=== PATIENT | male | born 1960 | race African-American/Black ===

== ENCOUNTER 2017-11-06 11:25 | Emergency (ER) | payer MEDICARE, MEDICAID ==
[2017-11-06 12:57] LABS: ALT (SGPT) 49 U/L (8-55); AST (SGOT) 74 U/L (5-34); Albumin 3.8 g/dL (3.5-5.0); Alkaline Phosphatase 106 U/L (40-150); Anion Gap 17 mmol/L (10-20); BUN (Urea Nitrogen) 17 mg/dL (8.4-25.7); Bilirubin, Total 1.1 mg/dL (0.2-1.2); Calc. Creatinine Clearance 0 mL/min (70-130); Carbon Dioxide 28 mmol/L (22-29); Chloride 95 mmol/L (98-107); Estimated GFR-MDRD 44; Globulin 4.2 g/dL (2.4-3.5); Glucose 149 mg/dL (70-105); Lipase 10 U/L (8-78); Potassium 3.8 mmol/L (3.5-5.1); Sodium 136 mmol/L (136-145)
[2017-11-06 12:58] LABS: Hemoglobin 13.7 g/dL (14.0-18.0); Mean Corpuscular HGB CONC 34.1 g/dL (32.0-36.0); Mean Corpuscular Hemoglobin 30.5 pg (27.0-31.0); Mean Corpuscular Volume 89.3 fl (80.0-94.0); Mean Platelet Volume 7.9 fL (7.4-10.4); Platelet Count 185 thou/uL (130-400); RBC Distribution Width 14.7 % (11.5-14.5); Red Blood Cell (RBC) Count 4.48 mill/uL (4.70-6.10); White Blood Cell (WBC) Count 8.1 thou/uL (4.8-10.8)
[2017-11-06 13:32] LABS: Anisocytosis SLIGHT = 6-15 cells (100X) (0-5/hpf); Band 2 % (5-11); Eosinophils 5 % (0-10); Lymphocytes 4 % (21-51); MDiff Complete? YES; Monocytes 6 % (0-10); Neutrophil 83 % (42-75); PLT Morphology Comment Appears Adequate
--- NOTE | 2017-11-06 13:46 | RAD ---
PORTABLE CHEST ONE VIEW: 11/06/2017 1:03 p.m. HISTORY: Dizziness. Shortness of breath. Weakness. Nausea. FINDINGS: There is elevation of the right hemidiaphragm. The heart is enlarged. No lobar consolidation, pneum othorax, romel pulmonary edema, or pleural effusion is seen. POS: OFF
--- NOTE | 2017-11-07 15:38 | EKG ---
Test Reason : DIFFBREATHING Blood Pressure : / mmHG Vent. Rate : 081 BPM Atrial Rate : 081 BPM P-R Int : 174 ms QRS Dur : 082 ms QT Int : 446 ms P-R-T Axes : 044 020 029 degrees QTc Int : 518 ms Normal sinus rhythm Prolonged QT Abnormal ECG Confirmed by DALTON WOLFE, TOO ([id number]), society editor KAYY PAYTON ([id number]) on 11/07/2017 3:38:37 PM Referred By: Confirmed By:TOO HOFFMAN MD
== END 2017-11-06 13:43 | disposition home or self-care (01) ==
LOC: ERS 11:25
DX: I13.2 Hypertensive heart and chronic kidney disease with heart failure and with stage 5 chronic kidney disease, or end stage renal disease (principal); E11.22 Type 2 diabetes mellitus with diabetic chronic kidney disease; N18.6 End stage renal disease; I50.9 Heart failure, unspecified; K21.9 Gastro-esophageal reflux disease without esophagitis; M10.9 Gout, unspecified; D50.9 Iron deficiency anemia, unspecified; E78.00 Pure hypercholesterolemia, unspecified; Z79.82 Long term (current) use of aspirin; Z79.899 Other long term (current) drug therapy; Z99.2 Dependence on renal dialysis
CPT/HCPCS: 36415; 71045; 80053; 82553; 83690; 84484; 85025; 93005

== ENCOUNTER 2018-08-11 09:55 | Inpatient (IN) | payer MEDICARE, MEDICAID ==
--- NOTE | 2018-08-11 10:50 | RAD ---
RADIOGRAPH CHEST 1 VIEW: Date: 08/11/2018 Time: 9:22 a.m. HISTORY: A 58-year-old male with dyspnea and malaise. COMPARISON: 11/06/2017 FINDINGS: Mild cardiomegaly. Nonspecific mild pulmonary densities, especially at the lower lung zones and rashmi cially in the retrocardiac portion of the left lower lobe. The attenuation of the left lower lobe ap pears to be somewhat greater than on the prior study. No pneumothorax. There is a new finding of pa rtial silhouetting of the left hemidiaphragm and blunting of the left lateral costophrenic angle. IMPRESSION: 1. Nonspecific mildly increased attenuation in the bilateral lower lung zones, which could be mild p ulmonary interstitial edema. 2. Increased attenuation in the left lower lobe, which could be mild atelectasis or early pneumonia. 3. Suspected small left pleural effusion. JUAN [] POS: GIAN
[2018-08-11 11:02] LABS: #Eosinphils 0.4 thou/uL (0.0-0.7); #Lymphocytes 0.8 thou/uL (1.20-3.40); #Monocytes 0.3 thou/uL (0.11-0.59); #Neutrophils 2.4 thou/uL (1.40-6.50); %Eosinophils 11.1 % (0.0-10.0); %Monocytes 7.7 % (0.0-10.0); %Neutrophils 59.1 % (42.0-75.0); Hemoglobin 10.2 g/dL (14.0-18.0); Mean Corpuscular HGB CONC 32.5 g/dL (32.0-36.0); Mean Corpuscular Volume 86.1 fL (78.0-98.0); Platelet Count 242 thou/uL (130-400); RBC Distribution Width 17.1 % (11.5-14.5); Red Blood Cell (RBC) Count 3.66 mill/uL (4.70-6.10)
[2018-08-11 11:28] LABS: ALT (SGPT) 7 U/L (8-55); AST (SGOT) 16 U/L (5-34); Albumin 3.8 g/dL (3.5-5.0); Alkaline Phosphatase 64 U/L (40-150); Anion Gap 12 mmol/L (10-20); BUN (Urea Nitrogen) 7 mg/dL (8.4-25.7); Bilirubin, Total 1.6 mg/dL (0.2-1.2); CK (CPK) 123 U/L (30-200); Calc. Creatinine Clearance 0 mL/min (70-130); Calcium 9.1 mg/dL (7.8-10.44); Carbon Dioxide 33 mmol/L (22-29); Chloride 96 mmol/L (98-107); Estimated GFR-MDRD 37; Globulin 3.9 g/dL (2.4-3.5); Glucose 93 mg/dL (70-105); Protein, Total 7.7 g/dL (6.0-8.3); Sodium 138 mmol/L (136-145)
[2018-08-11 11:30] LABS: Troponin I 0.017 ng/mL (< 0.028)
[2018-08-11 11:33] LABS: Potassium 2.7 mmol/L (3.5-5.1)
[2018-08-11] MEDS ORDERED: Potassium Chloride 20 MEQ TAB ONE (12:35)
[2018-08-11] MEDS ORDERED: Senokot S 8.6-50 MG TAB PO PRN (13:58)
[2018-08-11] MEDS ORDERED: Ondansetron HCl/PF 4 MG/2 ML Vial IVP PRN (13:58)
[2018-08-11] MEDS ORDERED: Acetaminophen 325 MG TAB PO PRN (13:58)
[2018-08-11] MEDS ORDERED: Bisacodyl 10 MG SUPP PR PRN (13:58)
[2018-08-11] MEDS ORDERED: HYDROcodone/Acetaminophen 5/325 mg Tablet PO PRN (13:58)
[2018-08-11] MEDS ORDERED: Bisacodyl 5 MG TAB PO PRN ×2 (13:58→13:59)
[2018-08-11] MEDS ORDERED: Calcium Carbonate 500 MG ChewTAB PO PRN (13:58)
[2018-08-11] MEDS ORDERED: Nitroglycerin 0.4 MG TAB (25 Tab Bottle) SL PRN (13:59)
[2018-08-11] MEDS ORDERED: Diabetic Tussin 200 MG/10 ML UDCUP PO PRN (13:59)
[2018-08-11] MEDS ORDERED: hydrALAZINE 20 MG/ML VIAL SLOW IVP PRN (13:59)
[2018-08-11] MEDS ORDERED: traMADol HCl 50 MG TAB PO PRN (13:59)
[2018-08-11] MEDS ORDERED: Loratadine 10 MG TAB PO PRN (13:59)
[2018-08-11] MEDS ORDERED: Benzonatate 100 MG CAP PO PRN (13:59)
[2018-08-11] MEDS ORDERED: Senokot 8.6 MG TAB PO PRN (13:59)
[2018-08-11] MEDS ORDERED: Vancomycin HCl 1.25 GM in Sodium Chloride 0.9% 250 ML 250 ML IVPB SCH (14:30)
[2018-08-11] MEDS ORDERED: Vancomycin HCl 500 MG in Sodium Chloride 0.9% 100 ML IVPB SCH (14:30)
[2018-08-11] MEDS ORDERED: Vancomycin HCl 1 GM in Premix Bag 1 BAG IVPB SCH ×2 (14:30→21:00)
[2018-08-11] MEDS ORDERED: HOLD VANCOMYCIN FOR LEVEL >20 FS SCH (14:30)
[2018-08-11] MEDS ORDERED: Vancomycin HCl 750 MG in Sodium Chloride 0.9% 250 ML 250 ML IVPB SCH (14:30)
[2018-08-11 14:50] LABS: Troponin I 0.016 ng/mL (< 0.028)
[2018-08-11] MEDS ORDERED: Potassium Chloride 40 MEQ in Sodium Chloride 0.9% 250 ML 250 ML IVPB SCH (15:00)
[2018-08-11] MEDS ORDERED: Potassium Chloride 20 MEQ TAB PO SCH (15:45)
--- NOTE | 2018-08-11 17:19 | HP ---
DATE OF ADMISSION: 08/11/2018 CHIEF COMPLAINT: Generalized weakness and shortness of breath. PRIMARY CARE PHYSICIAN: Morenita. PRIMARY SIGN MAKER: Dr. Sims. HISTORY OF PRESENTING ILLNESS: Mr. Quinn is a very pleasant 58-year-old male with known history of en d-stage renal disease on hemodialysis as well as history of chronic diastolic congestive heart failur e, chronic hepatitis C, iron deficiency anemia, hypertension, and diabetes mellitus who presented to the ER from dialysis center with the above-mentioned complaint. History is mainly obtained by the nathan anaya himself and electronic medical records have been reviewed. [facility]. According to Mr. Quinn, he has been feeling poorly for the last 3 weeks with increased fatigue and pro gressively worsening shortness of breath. He has been having some subjective fevers with chills. He has a dry cough. Denies any chest pain, orthopnea or PND. Denies any swelling. Denies any nausea, vomiting, diarrhea. He has been compliant with his dialysis and medications. He denies any sick co ntacts. He is normally able to ambulate freely in the house and is independent with his ADLs and IAD Ls, but lately has been having a hard time walking around the house because of excessive weakness. Blair chand did receive his influenza vaccination earlier this month. In the hemodialysis center today, he was found to be hypoxic with oxygen saturation in low 80s, so he was sent to the emergency room. His oxygen saturation in the ER was 94% on room air. A chest x-ray done in the ER was suggestive of possible bibasilar atelectasis versus pneumonia and some fluid over load. His BNP was elevated to 2642. Cardiac enzymes were negative. He was started on empiric IV an tibiotics and is now being admitted for further evaluation and care of acute hypoxic respiratory fail ure with possible pneumonia and fluid overload. His potassium was also found to be low at 2.7. PAST MEDICAL HISTORY: 1. End-stage renal disease on hemodialysis started last year in 2017. 2. Hypertension. 3. Dyslipidemia. 4. Diabetes mellitus type 2. 5. Chronic diastolic congestive heart failure. 6. Chronic hepatitis C. 7. Gout. PAST SURGICAL HISTORY: Angioplasty and cataracts. PSYCHIATRIC HISTORY: None are reviewed with the patient. SOCIAL HISTORY: He lives alone and is independent. No history of drug, tobacco or alcohol abuse. Q uit smoking 30 years ago. FAMILY HISTORY: Hypertension and coronary artery disease. ALLERGIES: No known medication allergies. [facility] MEDICATIONS: [facility], aspirin 81 mg daily, allopurinol 300 mg daily, nifedipi ne 90 mg daily, Imdur 60 mg p.o. b.i.d., Lantus 8 units in the morning, ferrous sulfate 325 mg daily, Nexium 40 mg daily, Coreg 25 t.i.d., Lipitor 10 at bedtime, hydralazine 25 t.i.d., MiraLax daily, an d omega 3 fish oil daily. REVIEW OF SYSTEMS: A 12-point review of systems is done, it is negative except for those mentioned i n the history and physical. LABORATORY DATA AND IMAGING DATA: CBC shows WBCs at 4.0 without any left shift or bandemia, hemoglob in 10.2, platelet count of 242. Serum chemistry shows potassium of 2.7, chloride low at 96, bicarbon ate high at 33, BUN 7, creatinine 2.19. Troponin 0.017 with normal CK-MB, BNP 2642. Chest x-ray by my review showed bibasilar opacities consistent with possible development of early pneumonia as well as mild pulmonary vascular congestion. PHYSICAL EXAMINATION: VITAL SIGNS: Most recent vital signs; temperature 97.3, pulse of 63, respirations 20, saturating 92% on 2 liters nasal cannula, blood pressure 183/65. GENERAL: No acute distress. He does appear somewhat sick and weak. HEENT: Mucous membrane is moist and pink. No oropharyngeal exudate or erythema. Head is normocepha lic, atraumatic. Pupils equal, reactive to light and accommodation. Extraocular movement intact. NECK: Supple without any lymphadenopathy, JVD or bruit. CHEST: Clear to auscultation except for some few bibasilar crackles. Rate and rhythm is regular wit hout any murmur, rubs or gallops. ABDOMEN: Soft, nontender, nondistended with positive bowel sounds. EXTREMITIES: Free of any cyanosis, clubbing, or edema. NEUROLOGIC: Examination is nonfocal. SKIN: Free of any rashes or bruises. Feels warm and dry to touch. PSYCHIATRIC: Normal affect. IMPRESSION AND PLAN: 1. Acute hypoxic respiratory failure. Appears multifactorial at this time. Pneumonia cannot be rul ed out as well as acute exacerbation of chronic diastolic heart failure even though the patient was c ompliant with his hemodialysis. We will start him on empiric antibiotics. Unfortunately, he has los t IV access and despite multiple attempts, it was unsuccessful to be established. It will be tried a gain tomorrow. He will be started and continued on empiric oral antibiotics in the meanwhile for lopez al adjusted dose. Blood cultures have been sent from the emergency room, and we will follow the resu lts. Cardiac enzyme is unremarkable, so suspicion of ACS is very low at this time. Hemodialysis wit h fluid removal will be done as tolerated. We will check BMP again in the morning. Repeat echocardi ogram will be ordered as well. His last echo was done in 11/2015, which showed a large pleural effus ion, normal left ventricular systolic function, moderate tricuspid and mitral regurgitation. He will be treated with symptomatic and supportive care with supplemental oxygen as well. 2. Hypokalemia, it will be replaced and rechecked. Dialysis supplementation as per treatment supervisor aft erwards 3. End-stage renal disease on hemodialysis. We will consult Nephrology for maintenance hemodialysis in the hospital. 4. History of hypertension. We will restart his Procardia, carvedilol, hydralazine and Imdur and mo nitor symptoms. P.r.n. antihypertensives. 5. Diabetes mellitus type 2. Restart his Lantus and add insulin sliding scale with frequent Accu-Ch eks. 6. Generalized weakness. We will have OT/PT to evaluate him. 7. Dyslipidemia. We will restart his Lipitor. 8. History of chronic hepatitis C. 9. Chronic constipation. Restart MiraLax. 10. Deep venous thrombosis and gastrointestinal prophylaxis. 11. P.r.n. medications. DISPOSITION: Mr. Quinn is currently being admitted to the hospital with acute hypoxic respiratory jaspreet lure likely secondary to pneumonia and fluid overload from acute on chronic diastolic congestive hear t failure. Estimated length of stay at this time is at least 2-3 midnights. Further management will depend upon his clinical course.
[2018-08-11 17:47] LABS: Troponin I 0.019 ng/mL (< 0.028)
[2018-08-11] MEDS ORDERED: Prevnar 13-Val Conj/PF 0.5 ML SYRINGE IM ONE (21:00)
[2018-08-11] MEDS ORDERED: Cefepime 1 GM in Sodium Chloride 0.9% 100 ML IVPB SCH (21:00)
[2018-08-11] MEDS: Heparin 5,000 UNITS/ML VIAL SC SCH (21:07)
[2018-08-11] MEDS: Doxycycline 100 MG CAP PO SCH (21:07)
[2018-08-11] MEDS: Fish Oil 1,000 MG CAP PO SCH (21:07)
[2018-08-11] MEDS: Atorvastatin Calcium 10 MG TAB PO SCH (21:07)
[2018-08-11] MEDS: Carvedilol 25 MG TAB PO SCH (21:07)
[2018-08-11] MEDS: hydrALAZINE 25 MG TAB PO SCH (21:07)
--- NOTE | 2018-08-12 00:54 | CON ---
DATE OF CONSULTATION: 08/11/2018 HISTORY OF PRESENT ILLNESS: Mr. Quinn is a 58-year-old black male with ESRD from diabetic nephropathy , on maintenance hemodialysis, and admitted for generalized weakness. The patient was undergoing ozzie lysis, complaining of generalized weakness and mild shortness of breath. A CBC was checked and his h emoglobin was noted to be acceptable. He was seen today for further management. The patient was com plaining of some chills at home. For that reason, he was admitted for possible sepsis. Chest x-ray was suggestive of possible pneumonia versus fluid overload. His BNP was elevated 2642. He had also a low potassium, but this is a post-dialysis number. REVIEW OF SYSTEMS: Positive for generalized malaise. Positive for chills, but no fever, no diarrhea , no constipation, no dysuria, no urinary frequency, no syncopal episode, no productive cough. Appet ite and energy level is decreased. MEDICATIONS: The patient is currently on Philpot 5/325 q.6 hours p.r.n., Zyloprim 300 mg daily, aspiri n 81 mg tab daily, Lipitor 10 mg at bedtime, Tessalon 100 mg q.4 hours, Tums 1000 mg q.4 hours, Coreg 25 mg p.o. t.i.d., clonidine p.r.n., doxycycline 100 mg p.o. b.i.d., ferrous sulfate 325 mg q.a.m., fish oil 1000 mg p.o. b.i.d., heparin 5000 units subcutaneously b.i.d., insulin glargine 8 units subc u q.a.m., Imdur 60 mg p.o. b.i.d., Levaquin 250 mg daily, nifedipine 90 mg XL tab daily, Nitrostat p. r.n., status post vancomycin, Protonix 40 mg tab once a day. PAST MEDICAL HISTORY: 1. Patient has history of ESRD from diabetic nephropathy. Had been currently on maintenance hemodia lysis. 2. He has type 2 diabetes mellitus. 3. Status post CHF. 4. Coronary artery disease. 5. Chronic anemia. 6. Hyperlipidemia. 7. Gout. 8. Hypertension. 9. GERD. 10. Depression. PAST SURGICAL HISTORY: 1. Status post AV fistula placement. 2. Status post cuffed hemodialysis catheter placement. 3. Status post cardiac catheterization with coronary stent placement. 4. Status post colonoscopy. 5. Status post eye surgery. SOCIAL HISTORY: The patient lives in [place]. He is a retired worker for a meat shop. He is original ly from [employer]. He has 6 children. Education: GED. Smoked for 20 years, one pack a day. Currently, no history of smoking. Status post multiple blood transfusions. No alcohol use. ALLERGIES: None. TRAUMA: None. IMMUNIZATIONS: Up to date. HOSPITALIZATIONS: Please see past medical history. FAMILY HISTORY: No family history of ESRD. PHYSICAL EXAMINATION: VITAL SIGNS: Blood pressure is noted at 141/62, heart rate 68, respiratory rate 20, temperature 97.7 , pulse ox 92%. GENERAL: Awake, alert, comfortable, lethargic, not in overt distress. SKIN: Adequate turgor. HEENT: He has pink, slightly pale conjunctivae, anicteric sclerae. NECK: No neck mass, no carotid bruits, no JVD. CHEST: No deformities. LUNGS: Decreased breath sounds. HEART: Normal sinus rhythm. No murmur, no gallops, no rubs. ABDOMEN: Globular, soft, nontender, no masses. EXTREMITIES: No edema, no deformities. NEUROLOGIC: Moving all extremities. No tremors, no asterixis, no ataxia. LABORATORY AND DIAGNOSTIC DATA: On 08/11/2018, white count 4, hemoglobin 10.2. Sodium 138, potassiu m 2.7, chloride 96, carbon dioxide 33, BUN 7, creatinine 2.19, glucose 93, AST 16, ALT 7. CK 173. B VACUUM KETTLE COOK is 2642, albumin 3.8, troponin I 0.019. Chest x-ray of 08/11/2018, shows a small left pleural eff usion; atelectasis, left lower lobe, increased interstitial lung markings. ASSESSMENT AND PLAN: 1. Generalized weakness/chills. The patient being ruled out for possible infection. Empiric antibi otics have been started with this patient, having doxycycline, Levaquin, and IV vancomycin. 2. End-stage renal disease, stable. We will continue current Thursday, Thursday, Thursday hemodialysis . Please note he received his dialysis today. Fluid removal was tolerated. If needed, we can do an extra dialysis tomorrow for fluid removal with this patient. Overall, Kt/V suggests he is adequatel y dialyzed with the current dialysis regimen. 3. We will check base met and CBC in a.m.
[2018-08-12 01:55] LABS: Bilirubin Moderate (Negative); Blood, Urine Trace (Negative); Clarity CLEAR (Clear); Glucose, Urine (Dipstick) Negative (Negative); Protein, Urine (Dipstick) 300 mg/dL (Neg-Trace); Specific Gravity, Urine 1.017 (1.002-1.036); pH, Urine 7.5 (5.0-9.0)
[2018-08-12 01:59] LABS: Bacteria/HPF None Seen HPF (None Seen); Hyaline Casts/LPF 7-10 HYALINE CAST LPF (0-3 Hyaline); Pathc Cast-AUWi Flag 1.16 (0-2.49); RBC/HPF GREATER THAN 50-TNTC HPF (0-3); Squamous Epithelial 0-3 HPF (0-3)
[2018-08-12 02:10] LABS: Leukocyte Negative (Negative); Nitrite Negative (Negative)
[2018-08-12 05:16] LABS: #Eosinphils 0.6 thou/uL (0.0-0.7); #Lymphocytes 0.8 thou/uL (1.20-3.40); #Monocytes 0.2 thou/uL (0.11-0.59); #Neutrophils 2.2 thou/uL (1.40-6.50); %Basophils 0.4 % (0.0-1.0); %Lymphocytes 20.9 % (21.0-51.0); %Monocytes 5.5 % (0.0-10.0); %Neutrophils 57.1 % (42.0-75.0); Hemoglobin 10.1 g/dL (14.0-18.0); Mean Corpuscular HGB CONC 33.2 g/dL (32.0-36.0); Mean Corpuscular Hemoglobin 28.8 pg (27.0-31.0); Mean Corpuscular Volume 86.6 fL (78.0-98.0); Mean Platelet Volume 8.4 fL (7.4-10.4); Platelet Count 207 thou/uL (130-400); Red Blood Cell (RBC) Count 3.51 mill/uL (4.70-6.10); White Blood Cell (WBC) Count 3.8 thou/uL (4.8-10.8)
[2018-08-12 05:37] LABS: Anion Gap 14 mmol/L (10-20); BUN (Urea Nitrogen) 14 mg/dL (8.4-25.7); Calc. Creatinine Clearance 32 mL/min (70-130); Calcium 8.9 mg/dL (7.8-10.44); Carbon Dioxide 25 mmol/L (22-29); Chloride 98 mmol/L (98-107); Estimated GFR-MDRD 24; Glucose 102 mg/dL (70-105); Potassium 4.1 mmol/L (3.5-5.1); Sodium 133 mmol/L (136-145)
[2018-08-12] MEDS: NIFEdipine XL 90 MG TAB PO SCH (08:11)
[2018-08-12] MEDS: Polyethylene Glycol 3350 17 GM Packet PO SCH (08:11)
[2018-08-12] MEDS: Doxycycline 100 MG CAP PO SCH ×2 (08:11→21:01)
[2018-08-12] MEDS: Insulin Glargine 8 UNITS in Pre-Filled Syringe 1 EACH SC SCH (08:11)
[2018-08-12] MEDS: Famotidine 20 MG TAB PO SCH (08:12)
[2018-08-12] MEDS: Carvedilol 25 MG TAB PO SCH ×3 (08:12→21:01)
[2018-08-12] MEDS: hydrALAZINE 25 MG TAB PO SCH ×3 (08:12→21:01)
[2018-08-12] MEDS: Ferrous Sulfate 325 MG TAB PO SCH (08:12)
[2018-08-12] MEDS: Allopurinol 300 MG TAB PO SCH (08:12)
[2018-08-12] MEDS: Fish Oil 1,000 MG CAP PO SCH ×2 (08:13→21:02)
[2018-08-12] MEDS: Aspirin 81 mg Enteric Coated Tablet PO SCH (08:13)
[2018-08-12] MEDS: Heparin 5,000 UNITS/ML VIAL SC SCH ×2 (08:14→21:01)
[2018-08-12] MEDS ORDERED: Cosyntropin 250 MCG VIAL SLOW IVP SCH (09:00)
[2018-08-12] MEDS ORDERED: INSULIN GLARGINE HUM REC ANLOG 8 UNIT SQ SCH (09:00)
--- NOTE | 2018-08-12 09:34 | PRG ---
DATE OF SERVICE: 08/12/2018 SUBJECTIVE: Mr. uQinn is a 58-year-old black male who was admitted for generalized weakness. Accordi ng to the patient, he has been feeling tired for the last 2-3 weeks. He has essentially no energy. In addition, his appetite is much decreased. He was admitted for possible sepsis. He has been empir ically treated also with IV antibiotics. A cardiac echo has also been ordered. Denies any overt dayana rtness of breath. Chest x-ray did suggest some fluid as well as an elevated BNP. PHYSICAL EXAMINATION: VITAL SIGNS: Blood pressure is 185/83, heart rate 75, respiratory rate 20, temperature 98, pulse ox 91%. GENERAL: Noted to be awake, alert, but somewhat lethargic, not in overt distress. SKIN: Adequate turgor. HEENT: He has slightly pale conjunctivae, anicteric sclerae. NECK: No neck mass, no carotid bruits, no JVD. CHEST: No deformities. LUNGS: Clear. Decreased breath sounds. HEART: Normal sinus rhythm. No murmur, no gallops, no rubs. ABDOMEN: Globular, soft, nontender, no masses. EXTREMITIES: No edema, no deformities. MEDICATIONS: 08/12/2018 - Reviewed. LABORATORY: 08/12/2018 - Sodium 133, potassium 4.1, chloride 98, carbon dioxide 25, BUN 14, creatin ine 3.25, glucose 102, calcium 8.9. White count 3.8, hemoglobin 10.1. ASSESSMENT AND PLAN: 1. Generalized weakness/elevated BNP - cardiac echo ordered. We will recheck what the ejection frac tion is. The generalized weakness may be from underlying decreased EF 2. End-stage renal disease, stable. We will continue current hemodialysis regimen Thursday, Thursday , Thursday. No indication for any emergent dialysis today. 3. Borderline anemia. We will continue to observe. Please note we will order a Cortrosyn stimulati on test for this patient. Recheck base met and CBC in the a.m.
[2018-08-12] MEDS ORDERED: Cefepime 0.5 GM, Admixture Fee 1 EACH in Sodium Chloride 0.9% 100 ML IVPB SCH (12:00)
--- NOTE | 2018-08-12 17:57 | PDOC.PN ---
- Subjective Encounter Start Date: 08/12/18 Encounter Start Time: 09:00 Pt seen for followup re; acute hypoxic respiratory failure. Feels slightly better, but still weak. - Objective Vital Signs & Weight: Vital Signs (12 hours) Temp Pulse Resp BP Pulse Ox 08/12/18 17:00 98.0 F 74 20 144/66 H 97 08/12/18 15:33 69 08/12/18 11:43 98.3 F 69 20 186/71 H 94 L 08/12/18 08:12 66 08/12/18 08:11 66 08/12/18 08:00 98.0 F 75 20 185/83 H 94 L Weight Admit Weight 204 lb 9 oz Weight 204 lb 9 oz I&O: 08/11/18 08/12/18 08/13/18 06:59 06:59 06:59 Intake Total 840 240 Output Total 50 Balance 790 240 Result Diagrams: 08/12/18 04:12 08/12/18 04:12 Additional Labs: Accuchecks 08/12/18 08/12/18 08/12/18 17:03 11:40 05:25 POC Glucose 82 92 105 08/11/18 21:03 POC Glucose 100 Phys Exam - Physical Examination Obese HEENT: moist MMs, sclera anicteric, oral pharynx no lesions, 2+ tonsils Neck: no nodes, no JVD, supple, full ROM Respiratory: no wheezing, no rales, no rhonchi, clear to auscultation bilateral Cardiovascular: RRR, no rub S1, s2 Gastrointestinal: soft, non-tender, no distention, positive bowel sounds Neurological: moves all 4 limbs Psychiatric: normal affect Dx/Plan (1) Acute respiratory failure with hypoxia Code(s): J96.01 - ACUTE RESPIRATORY FAILURE WITH HYPOXIA Status: Acute Comment: Slightly improved, continues to be on supplemental oxygen. Suspected sepsis, continue antibiotics as below and follow cultures. (2) ESRD (end stage renal disease) on dialysis Code(s): N18.6 - END STAGE RENAL DISEASE; Z99.2 - DEPENDENCE ON RENAL DIALYSIS Status: Chronic Comment: dialysis per nephrology service (3) Gout Code(s): M10.9 - GOUT, UNSPECIFIED Status: Chronic Qualifiers: Gout site: unspecified site Gout etiology: unspecified cause Chronicity: chronic Presence of tophus: without tophus Qualified Code(s): M1A.9XX0 - Chronic gout, unspecified, without tophus (tophi) Comment: stable (4) Hypertension Code(s): I10 - ESSENTIAL (PRIMARY) HYPERTENSION Status: Chronic Comment: start PRN IV hydralazine for blood pressure spikes (5) Chronic hepatitis C Code(s): B18.2 - CHRONIC VIRAL HEPATITIS C Status: Chronic Comment: stable - Plan * . Review of Systems - Review of Systems Constitutional: chills, weakness. negative: fever, sweats, malaise Respiratory: Cough, Dry, SOB with Excertion. negative: Shortness of Breath, Hemoptysis, Pleuritic Pain, Sputum, Wheezing Cardiovascular: negative: chest pain, palpitations, orthopnea, paroxysmal nocturnal dyspnea, edema, light headedness Gastrointestinal: negative: Nausea, Vomiting, Abdominal Pain, Diarrhea, Constipation, Melena, Hematochezia Genitourinary: negative: Dysuria, Frequency, Incontinence, Hematuria, Retention Skin: negative: Rash, Lesions, Tobias, Bruising - Medications/Allergies Allergies/Adverse Reactions: Allergies Allergy/AdvReac Type Severity Reaction Status Date / Time No Known Drug Allergies Allergy Verified 09/03/15 08:35 Medications: Current Medications Acetaminophen (Tylenol) 650 mg PO Q4H PRN PRN Reason: Headache/Fever/Mild Pain (1-3) Hydrocodone Bitart/Acetaminophen (Lyerly 5/325) 1 tab PO Q4H PRN PRN Reason: Moderate Pain (4-6) Last Admin: 08/11/18 15:23 Dose: 1 tab Allopurinol (Zyloprim) 300 mg PO DAILY [facility] Last Admin: 08/12/18 08:12 Dose: 300 mg Aspirin (Ecotrin) 81 mg PO DAILY [facility] Last Admin: 08/12/18 08:13 Dose: 81 mg Atorvastatin Calcium (Lipitor) 10 mg PO HS [facility] Last Admin: 08/11/18 21:07 Dose: 10 mg Benzonatate (Tessalon) 100 mg PO Q4H PRN PRN Reason: Cough Bisacodyl (Dulcolax) 10 mg PO DAILYPRN PRN PRN Reason: Constipation Bisacodyl (Dulcolax) 10 mg [place] DAILYPRN PRN PRN Reason: Constipation Calcium Carbonate (Tums) 1,000 mg PO Q4H PRN PRN Reason: Heartburn or Indigestion Carvedilol (Coreg) 25 mg PO TID [facility] Last Admin: 08/12/18 15:33 Dose: 25 mg Clonidine (Catapres) 0.1 mg PO Q4H PRN PRN Reason: Systolic BP > 160 Cosyntropin (Cortrosyn) 250 mcg SLOW IVP [facility] Last Admin: 08/12/18 15:32 Dose: 250 mcg Doxycycline Hyclate (Vibramycin) 100 mg PO BID [facility] Last Admin: 08/12/18 08:11 Dose: 100 mg Famotidine (Pepcid) 20 mg PO DAILY [facility] Last Admin: 08/12/18 08:12 Dose: 20 mg [facility]ous [facility]) [facility] Last Admin: 08/12/18 08:12 Dose: 325 mg Fish Oil (Fish Oil) 1,000 mg PO BID [facility] Last Admin: 08/12/18 08:13 Dose: 1,000 mg Guaifenesin (Robitussin Sf) 200 mg PO Q4H PRN PRN Reason: Cough Heparin Sodium (Porcine) (Heparin) 5,000 units SC BID [facility] Last Admin: 08/12/18 08:14 Dose: 5,000 units Hydralazine HCl (Apresoline) 10 mg SLOW IVP Q4H PRN PRN Reason: Systolic BP > 170 Hydralazine HCl (Apresoline) 25 mg PO TID [facility] Last Admin: 08/12/18 15:33 Dose: 25 mg Vancomycin HCl 1.25 gm/ Sodium (Chloride) 250 mls @ 166.667 mls/hr IVPB [facility] Vancomycin HCl 1 gm/ Device 200 mls @ 200 mls/hr IVPB [facility] Vancomycin HCl 750 mg/ Sodium (Chloride) 250 mls @ 250 mls/hr IVPB [facility] Insulin Glargine 8 units/ (Miscellaneous Medication) 0.08 mls @ 0 mls/hr SC QAM [facility] Last Admin: 08/12/18 08:11 Dose: 0.08 mls Isosorbide Mononitrate (Imdur) 60 mg PO BID [facility] Last Admin: 08/12/18 08:13 Dose: 60 mg Levofloxacin (Levaquin) 250 mg PO 0600 [facility] Last Admin: 08/12/18 05:37 Dose: 250 mg Loratadine (Claritin) 10 mg PO DAILYPRN PRN PRN Reason: Sinus Symptoms Miscellaneous Medication (Pharmacy To Dose) 1 each IVPB PRN PRN PRN Reason: Pharmacy to dose Nifedipine (Procardia Xl) 90 mg PO DAILY [facility] Last Admin: 08/12/18 08:11 Dose: 90 mg Nitroglycerin (Nitrostat) 0.4 mg SL Q5MIN PRN PRN Reason: Chest Pain Hold Vancomycin For (Level >20) 0 each FS .AT DIALYSIS [facility] Ondansetron HCl (Zofran) 4 mg IVP Q6H PRN PRN Reason: Nausea/Vomiting Pantoprazole Sodium (Protonix) 40 mg PO DAILY [facility] Last Admin: 08/12/18 08:12 Dose: 40 mg Polyethylene Glycol (Miralax) 17 gm PO DAILY [facility] Last Admin: 08/12/18 08:11 Dose: 17 gm Senna (Senokot) 2 tab PO HSPRN PRN PRN Reason: Constipation Senna/Docusate Sodium (Senokot S) 2 tab PO BID PRN PRN Reason: Constipation Sodium Chloride (Flush - Normal Saline) 10 ml IVF PRN PRN PRN Reason: Saline Flush Tramadol HCl (Ultram) 50 mg PO Q4H PRN PRN Reason: Moderate Pain (4-6)
[2018-08-12] MEDS ORDERED: hydrALAZINE 20 MG/ML VIAL SLOW IVP PRN (18:01)
[2018-08-12] MEDS: Atorvastatin Calcium 10 MG TAB PO SCH (21:01)
--- NOTE | 2018-08-13 10:52 | PRG ---
DATE OF SERVICE: 08/13/2018 SERVICE: Renal Medicine. SUBJECTIVE: Mr. Quinn is currently undergoing hemodialysis. I am at the bedside supervising his dial ysis. He was admitted for generalized malaise. Cardiac echo has been ordered and still currently pe nding. He feels a little better today. Attempting to remove fluid removal as tolerated. No other c omplaints, no chest pain or shortness of breath. PHYSICAL EXAMINATION: VITAL SIGNS: Blood pressure is 168/62. Attempting to remove 4.6 liters. GENERAL: Awake, alert, supine, comfortable. SKIN: Adequate turgor. HEENT: Pinkish conjunctivae, anicteric sclerae. NECK: No neck mass, no carotid bruits, no JVD. CHEST: No deformities. LUNGS: Decreased breath sounds. HEART: Normal sinus rhythm. No murmur, no gallops, no rubs. ABDOMEN: Globular, soft, nontender, no masses. EXTREMITIES: No edema. LABORATORY DATA: Of 08/13/2018, pending. MEDICATIONS: Of 08/13/2018 was reviewed. ASSESSMENT AND PLAN: 1. Generalized malaise - this could be from a possible decreased ejection fraction causing generaliz ed weakness. He was also found to have some congestive heart failure on x-ray and has elevated BNP. We are maxing out fluid removal. 2. Congestive heart failure, maxing out fluid removal with dialysis. 3. End-stage renal disease, stable. Continue current Thursday, Thursday, Thursday dialysis. Again, adan ximizing fluid removal. Overall, agree with current management.
[2018-08-13] MEDS: Ferrous Sulfate 325 MG TAB PO SCH (11:52)
[2018-08-13] MEDS: Allopurinol 300 MG TAB PO SCH (11:52)
[2018-08-13] MEDS: hydrALAZINE 25 MG TAB PO SCH ×3 (11:53→20:09)
[2018-08-13] MEDS: Fish Oil 1,000 MG CAP PO SCH ×2 (11:53→20:08)
[2018-08-13] MEDS: Insulin Glargine 8 UNITS in Pre-Filled Syringe 1 EACH SC SCH (11:53)
[2018-08-13] MEDS: Heparin 5,000 UNITS/ML VIAL SC SCH ×2 (11:53→20:08)
[2018-08-13] MEDS: Famotidine 20 MG TAB PO SCH (11:53)
[2018-08-13] MEDS: Carvedilol 25 MG TAB PO SCH ×3 (11:53→20:08)
[2018-08-13] MEDS: Aspirin 81 mg Enteric Coated Tablet PO SCH (11:53)
[2018-08-13] MEDS: Doxycycline 100 MG CAP PO SCH ×2 (11:53→20:08)
[2018-08-13] MEDS: Polyethylene Glycol 3350 17 GM Packet PO SCH (11:54)
[2018-08-13] MEDS: NIFEdipine XL 90 MG TAB PO SCH (11:54)
[2018-08-13] MEDS: cloNIDine 0.1 MG TAB PO PRN ×2 (12:32→16:31)
--- NOTE | 2018-08-13 14:58 | PDOC.PN ---
- Subjective Encounter Start Date: 08/13/18 Encounter Start Time: 10:20 Pt seen for followup re: acute hypoxic respiratory failure. Denies chest pain. c/o generalized weakness. - Objective MAR Reviewed: Yes Vital Signs & Weight: Vital Signs (12 hours) Pulse BP Pulse Ox 08/13/18 14:56 190/69 H 08/13/18 12:32 190/69 H 08/13/18 11:54 69 144/67 H 08/13/18 11:53 69 144/67 H 08/13/18 08:00 94 L Weight Admit Weight 204 lb 9 oz Weight 204 lb 9 oz I&O: 08/12/18 08/13/18 08/14/18 06:59 06:59 06:59 Intake Total 840 240 Output Total 50 Balance 790 240 Result Diagrams: 08/12/18 04:12 08/12/18 04:12 Additional Labs: Accuchecks 08/12/18 08/12/18 08/12/18 21:05 17:03 11:40 POC Glucose 77 82 92 Labs reviewed by me Phys Exam - Physical Examination Obesity HEENT: moist MMs, sclera anicteric, oral pharynx no lesions, 2+ tonsils Neck: no nodes, no JVD, supple, full ROM Respiratory: no wheezing, no rales, no rhonchi, clear to auscultation bilateral Cardiovascular: RRR, no rub S1, S2 Gastrointestinal: soft, non-tender, no distention, positive bowel sounds Neurological: moves all 4 limbs Psychiatric: normal affect, A&O x 3 Dx/Plan (1) Acute respiratory failure with hypoxia Code(s): J96.01 - ACUTE RESPIRATORY FAILURE WITH HYPOXIA Status: Acute Comment: Improving, but pt is still on supplemental oxygen. Continue antibiotics as below and follow cultures for suspected sepsis. (2) ESRD (end stage renal disease) on dialysis Code(s): N18.6 - END STAGE RENAL DISEASE; Z99.2 - DEPENDENCE ON RENAL DIALYSIS Status: Chronic Comment: nephrology service following (3) Gout Code(s): M10.9 - GOUT, UNSPECIFIED Status: Chronic Qualifiers: Gout site: unspecified site Gout etiology: unspecified cause Chronicity: chronic Presence of tophus: without tophus Qualified Code(s): M1A.9XX0 - Chronic gout, unspecified, without tophus (tophi) Comment: stable (4) Hypertension Code(s): I10 - ESSENTIAL (PRIMARY) HYPERTENSION Status: Chronic Comment: on PRN IV hydralazine for blood pressure spikes (5) Chronic hepatitis C Code(s): B18.2 - CHRONIC VIRAL HEPATITIS C Status: Chronic Comment: stable - Plan continue antibiotics, PT/OT * . Review of Systems - Review of Systems Constitutional: weakness. negative: fever, chills, sweats, malaise Respiratory: negative: Cough, Shortness of Breath, SOB with Excertion, Pleuritic Pain, Wheezing Cardiovascular: negative: chest pain, palpitations, orthopnea, paroxysmal nocturnal dyspnea, edema, light headedness Gastrointestinal: negative: Nausea, Vomiting, Abdominal Pain, Diarrhea, Constipation, Melena, Hematochezia Genitourinary: negative: Dysuria, Frequency, Incontinence, Hematuria, Retention Skin: negative: Rash, Lesions, Tobias, Bruising - Medications/Allergies Allergies/Adverse Reactions: Allergies Allergy/AdvReac Type Severity Reaction Status Date / Time No Known Drug Allergies Allergy Verified 09/03/15 08:35 Medications: Current Medications Acetaminophen (Tylenol) 650 mg PO Q4H PRN PRN Reason: Headache/Fever/Mild Pain (1-3) Hydrocodone Bitart/Acetaminophen ([place] 5/325) 1 tab PO Q4H PRN PRN Reason: Moderate Pain (4-6) Last Admin: 08/11/18 15:23 Dose: 1 tab Allopurinol (Zyloprim) 300 mg PO DAILY [facility] Last Admin: 08/13/18 11:52 Dose: Not Given Aspirin (Ecotrin) 81 mg PO DAILY [facility] Last Admin: 08/13/18 11:53 Dose: Not Given Atorvastatin Calcium (Lipitor) 10 mg PO HS [facility] Last Admin: 08/12/18 21:01 Dose: 10 mg Benzonatate (Tessalon) 100 mg PO Q4H PRN PRN Reason: Cough Bisacodyl (Dulcolax) 10 mg PO DAILYPRN PRN PRN Reason: Constipation Bisacodyl (Dulcolax) 10 mg [place] DAILYPRN PRN PRN Reason: Constipation Calcium Carbonate (Tums) 1,000 mg PO Q4H PRN PRN Reason: Heartburn or Indigestion Carvedilol (Coreg) 25 mg PO TID [facility] Last Admin: 08/13/18 14:56 Dose: 25 mg Clonidine (Catapres) 0.1 mg PO Q4H PRN PRN Reason: Systolic BP > 160 Last Admin: 08/13/18 12:32 Dose: 0.1 mg Cosyntropin (Cortrosyn) 250 mcg SLOW IVP [facility] Last Admin: 08/12/18 15:32 Dose: 250 mcg Doxycycline Hyclate (Vibramycin) 100 mg PO BID [facility] Last Admin: 08/13/18 11:53 Dose: Not Given Famotidine (Pepcid) 20 mg PO DAILY [facility] Last Admin: 08/13/18 11:53 Dose: Not Given Ferrous Sulfate (Feosol) 325 mg PO QA-[facility] Last Admin: 08/13/18 11:52 Dose: Not Given Fish Oil (Fish Oil) 1,000 mg PO BID [facility] Last Admin: 08/13/18 11:53 Dose: Not Given Guaifenesin (Robitussin Sf) 200 mg PO Q4H PRN PRN Reason: Cough Heparin Sodium (Porcine) (Heparin) 5,000 units SC BID [facility] Last Admin: 08/13/18 11:53 Dose: Not Given Hydralazine HCl (Apresoline) 25 mg PO TID [facility] Last Admin: 08/13/18 14:56 Dose: 25 mg Hydralazine HCl (Apresoline) 10 mg SLOW IVP Q6H PRN PRN Reason: SBP Greater Than 170 Vancomycin HCl 1.25 gm/ Sodium (Chloride) 250 mls @ 166.667 mls/hr [facility] Vancomycin HCl 1 gm/ Device 200 mls @ 200 mls/hr IVPB [facility] Vancomycin HCl 750 mg/ Sodium (Chloride) 250 mls @ 250 mls/hr IVPB [facility] Insulin Glargine 8 units/ (Miscellaneous Medication) 0.08 mls @ 0 mls/hr SC QAM [facility] Last Admin: 08/13/18 11:53 Dose: Not Given Isosorbide Mononitrate (Imdur) 60 mg PO BID [facility] Last Admin: 08/13/18 11:54 Dose: Not Given Levofloxacin (Levaquin) 250 mg PO 0600 [facility] Last Admin: 08/13/18 11:52 Dose: Not Given Loratadine (Claritin) 10 mg PO DAILYPRN PRN PRN Reason: Sinus Symptoms Miscellaneous Medication (Pharmacy To Dose) 1 each IVPB PRN PRN PRN Reason: Pharmacy to dose Nifedipine (Procardia Xl) 90 mg PO DAILY [facility] Last Admin: 08/13/18 11:54 Dose: Not Given Nitroglycerin (Nitrostat) 0.4 mg SL Q5MIN PRN PRN Reason: Chest Pain Hold Vancomycin For (Level >20) 0 each FS .AT DIALYSIS [facility] Ondansetron HCl (Zofran) 4 mg IVP Q6H PRN PRN Reason: Nausea/Vomiting Pantoprazole Sodium (Protonix) 40 mg PO DAILY [facility] Last Admin: 08/13/18 11:54 Dose: Not Given Polyethylene Glycol (Miralax) 17 gm PO DAILY [facility] Last Admin: 08/13/18 11:54 Dose: Not Given Senna (Senokot) 2 tab PO HSPRN PRN PRN Reason: Constipation Senna/Docusate Sodium (Senokot S) 2 tab PO BID PRN PRN Reason: Constipation Sodium Chloride (Flush - Normal Saline) 10 ml IVF PRN PRN PRN Reason: Saline Flush Tramadol HCl (Ultram) 50 mg PO Q4H PRN PRN Reason: Moderate Pain (4-6)
[2018-08-13] MEDS: Atorvastatin Calcium 10 MG TAB PO SCH (20:07)
[2018-08-13 20:19] LABS: #Eosinphils 0.6 thou/uL (0.0-0.7); #Lymphocytes 0.7 thou/uL (1.20-3.40); #Monocytes 0.3 thou/uL (0.11-0.59); #Neutrophils 2.4 thou/uL (1.40-6.50); %Basophils 0.8 % (0.0-1.0); %Eosinophils 13.8 % (0.0-10.0); %Lymphocytes 17.7 % (21.0-51.0); %Monocytes 8.5 % (0.0-10.0); %Neutrophils 59.2 % (42.0-75.0); Hemoglobin 11.4 g/dL (14.0-18.0); Mean Corpuscular HGB CONC 32.3 g/dL (32.0-36.0); Mean Corpuscular Volume 86.5 fL (78.0-98.0); Mean Platelet Volume 7.7 fL (7.4-10.4); Platelet Count 228 thou/uL (130-400); Red Blood Cell (RBC) Count 4.06 mill/uL (4.70-6.10)
[2018-08-13 20:36] LABS: Anion Gap 12 mmol/L (10-20); BUN (Urea Nitrogen) 11 mg/dL (8.4-25.7); Calc. Creatinine Clearance 36 mL/min (70-130); Calcium 9.5 mg/dL (7.8-10.44); Carbon Dioxide 30 mmol/L (22-29); Chloride 99 mmol/L (98-107); Estimated GFR-MDRD 26; Glucose 120 mg/dL (70-105); Potassium 3.2 mmol/L (3.5-5.1); Sodium 138 mmol/L (136-145)
[2018-08-14 05:29] LABS: Anion Gap 10 mmol/L (10-20); BUN (Urea Nitrogen) 13 mg/dL (8.4-25.7); Calc. Creatinine Clearance 33 mL/min (70-130); Calcium 8.8 mg/dL (7.8-10.44); Carbon Dioxide 31 mmol/L (22-29); Chloride 99 mmol/L (98-107); Estimated GFR-MDRD 23; Glucose 89 mg/dL (70-105); Potassium 3.2 mmol/L (3.5-5.1); Sodium 137 mmol/L (136-145)
--- NOTE | 2018-08-14 08:22 | HP ---
DATE OF SERVICE: 08/14/2018 SERVICE: Renal Medicine. SUBJECTIVE: Mr. Quinn is a 58-year-old black male with end-stage renal disease and followed up by the Renal Service for his maintenance hemodialysis. He underwent hemodialysis yesterday without any dif ficulty. We were able to remove several liters of fluid. He was initially admitted for generalized malaise. The working diagnosis is he may have a presumptive bacteremia/question jory infection. On empiric IV antibiotics. Due to the shortness of breath and generalized malaise, a cardiac echo was d one. However, the cardiac echo showed a normal ejection fraction. This morning, he is feeling a lit tle better. Denies any chest pain or shortness of breath. PHYSICAL EXAMINATION: VITAL SIGNS: Blood pressure 170/72, heart rate 70, respiratory rate 16, temperature 98.1, pulse ox 9 5%. GENERAL: Awake, alert, comfortable, not in distress. SKIN: Adequate turgor. HEENT: He has a pinkish conjunctivae, anicteric sclerae. NECK: No neck mass, no carotid bruits, no JVD. CHEST: No deformities. LUNGS: Clear breath sounds, no wheezing, no crackles. HEART: Normal sinus rhythm. No murmur, no gallops or rubs. ABDOMEN: Globular, soft, nontender, no masses. EXTREMITIES: No edema. MEDICATIONS: Of 08/14/2018 was reviewed. LABORATORY DATA: Of 08/13/2018, white count 4, hemoglobin 11.4. On 08/14/2018, sodium 137, [place] m 3.2, chloride 99, carbon dioxide 31, BUN 13, creatinine 3.33, glucose 23, calcium 8.8. Cortrosyn s timulation test was done and this was within normal. ASSESSMENT AND PLAN: 1. Generalized malaise - nonspecific findings. No exact etiology. Cortrosyn stimulation test was n ormal. Ejection fraction was within normal. Continue supportive care. 2. End-stage renal disease, stable. We will continue current Thursday, Thursday, Thursday dialysis. H e is tolerating current dialysis regimen. Fluid removal was also being tolerated. 3. Mild hypokalemia - I will simply observe this. The patient will have no dialysis for the next 2 days. Overall, agree with current management.
[2018-08-14] MEDS: Ferrous Sulfate 325 MG TAB PO SCH (09:32)
[2018-08-14] MEDS: NIFEdipine XL 90 MG TAB PO SCH (09:32)
[2018-08-14] MEDS: Fish Oil 1,000 MG CAP PO SCH ×2 (09:32→20:00)
[2018-08-14] MEDS: Polyethylene Glycol 3350 17 GM Packet PO SCH (09:33)
[2018-08-14] MEDS: Insulin Glargine 8 UNITS in Pre-Filled Syringe 1 EACH SC SCH (09:33)
[2018-08-14] MEDS: Allopurinol 300 MG TAB PO SCH (09:33)
[2018-08-14] MEDS: Carvedilol 25 MG TAB PO SCH ×3 (09:33→19:59)
[2018-08-14] MEDS: Aspirin 81 mg Enteric Coated Tablet PO SCH (09:33)
[2018-08-14] MEDS: hydrALAZINE 25 MG TAB PO SCH ×3 (09:34→20:00)
[2018-08-14] MEDS: Famotidine 20 MG TAB PO SCH (09:37)
[2018-08-14] MEDS: Doxycycline 100 MG CAP PO SCH ×2 (11:43→20:00)
[2018-08-14] MEDS: Heparin 5,000 UNITS/ML VIAL SC SCH ×2 (11:43→20:00)
[2018-08-14] MEDS ORDERED: Vancomycin HCl 1.25 GM in Sodium Chloride 0.9% 250 ML 250 ML IVPB SCH (13:30)
--- NOTE | 2018-08-14 18:21 | PDOC.PN ---
- Subjective Encounter Start Date: 08/14/18 Encounter Start Time: 09:50 Pt seen for followup with acute hypoxic respiratory failure. Denies chest pain. c/o generalized weakness. - Objective MAR Reviewed: Yes Vital Signs & Weight: Vital Signs (12 hours) Temp Pulse Resp BP BP BP Pulse Ox 08/14/18 16:00 97.7 F 77 18 144/65 H 97 08/14/18 14:22 76 135/72 08/14/18 12:00 97.4 F L 69 18 181/83 H 95 08/14/18 09:55 97 08/14/18 09:46 179/83 H 08/14/18 09:34 72 179/83 H 08/14/18 09:32 72 179/83 H 08/14/18 08:00 98.0 F 72 18 173/49 H 97 Weight Admit Weight 204 lb 9 oz Weight 216 lb 11.43 oz I&O: 08/13/18 08/14/18 08/15/18 06:59 06:59 06:59 Intake Total 240 450 Balance 240 450 Result Diagrams: 08/15/18 05:39 08/15/18 05:39 Additional Labs: Accuchecks 08/14/18 08/14/18 08/14/18 16:40 11:42 05:40 POC Glucose 116 H 109 88 08/13/18 20:40 POC Glucose 139 H Labs reviewed by me Phys Exam - Physical Examination Constitutional: NAD HEENT: moist MMs Neck: supple Respiratory: clear to auscultation bilateral Cardiovascular: RRR Gastrointestinal: soft Neurological: moves all 4 limbs Psychiatric: normal affect Dx/Plan (1) Acute respiratory failure with hypoxia Code(s): J96.01 - ACUTE RESPIRATORY FAILURE WITH HYPOXIA Status: Acute Comment: Improving, but pt is still on supplemental oxygen. Will try to wean off of oxygen. Continuing antibiotics for now for suspected sepsis. (2) ESRD (end stage renal disease) on dialysis Code(s): N18.6 - END STAGE RENAL DISEASE; Z99.2 - DEPENDENCE ON RENAL DIALYSIS Status: Chronic Comment: nephrology service following for dialysis (3) Gout Code(s): M10.9 - GOUT, UNSPECIFIED Status: Chronic Qualifiers: Gout site: unspecified site Gout etiology: unspecified cause Chronicity: chronic Presence of tophus: without tophus Qualified Code(s): M1A.9XX0 - Chronic gout, unspecified, without tophus (tophi) Comment: stable (4) Hypertension Code(s): I10 - ESSENTIAL (PRIMARY) HYPERTENSION Status: Chronic Comment: Increase scheduled hydralazine to 50 mg PO TID (5) Chronic hepatitis C Code(s): B18.2 - CHRONIC VIRAL HEPATITIS C Status: Chronic Comment: stable - Plan * . Review of Systems - Review of Systems Constitutional: weakness. negative: fever, chills, sweats, malaise Cardiovascular: negative: chest pain, palpitations, orthopnea, paroxysmal nocturnal dyspnea, edema, light headedness - Medications/Allergies Allergies/Adverse Reactions: Allergies Allergy/AdvReac Type Severity Reaction Status Date / Time No Known Drug Allergies Allergy Verified 09/03/15 08:35 Medications: Current Medications Acetaminophen (Tylenol) 650 mg PO Q4H PRN PRN Reason: Headache/Fever/Mild Pain (1-3) Hydrocodone Bitart/Acetaminophen ([place] 5/325) 1 tab PO Q4H PRN PRN Reason: Moderate Pain (4-6) Last Admin: 08/11/18 15:23 Dose: 1 tab Allopurinol (Zyloprim) 300 mg PO DAILY [facility] Last Admin: 08/14/18 09:33 Dose: 300 mg Aspirin (Ecotrin) 81 mg PO DAILY [facility] Last Admin: 08/14/18 09:33 Dose: 81 mg Atorvastatin Calcium (Lipitor) 10 mg PO HS [facility] Last Admin: 08/13/18 20:07 Dose: 10 mg Benzonatate (Tessalon) 100 mg PO Q4H PRN PRN Reason: Cough Bisacodyl (Dulcolax) 10 mg PO DAILYPRN PRN PRN Reason: Constipation Bisacodyl (Dulcolax) 10 mg [place] DAILYPRN PRN PRN Reason: Constipation Calcium Carbonate (Tums) 1,000 mg PO Q4H PRN PRN Reason: Heartburn or Indigestion Carvedilol (Coreg) 25 mg PO TID [facility] Last Admin: 08/14/18 14:22 Dose: 25 mg Clonidine (Catapres) 0.1 mg PO Q4H PRN PRN Reason: Systolic BP > 160 Last Admin: 08/13/18 16:31 Dose: 0.1 mg Cosyntropin (Cortrosyn) 250 mcg SLOW IVP [facility] Last Admin: 08/12/18 15:32 Dose: 250 mcg Doxycycline Hyclate (Vibramycin) 100 mg PO BID [facility] Last Admin: 08/14/18 11:43 Dose: 100 mg Ferrous Sulfate (Feosol) 325 mg PO QAM-[facility] Last Admin: 08/14/18 09:32 Dose: 325 mg Fish Oil (Fish Oil) 1,000 mg PO BID [facility] Last Admin: 08/14/18 09:32 Dose: 1,000 mg Guaifenesin (Robitussin Sf) 200 mg PO Q4H PRN PRN Reason: Cough Heparin Sodium (Porcine) (Heparin) 5,000 units SC BID [facility] Last Admin: 08/14/18 11:43 Dose: 5,000 units Hydralazine HCl (Apresoline) 25 mg PO TID [facility] Last Admin: 08/14/18 14:22 Dose: 25 mg Hydralazine HCl (Apresoline) 10 mg SLOW IVP Q6H PRN PRN Reason: SBP Greater Than 170 Vancomycin HCl 1.25 gm/ Sodium (Chloride) 250 mls @ 166.667 mls/hr IVPB [facility] Vancomycin HCl 1 gm/ Device 200 mls @ 200 mls/hr [facility] Vancomycin HCl 750 mg/ Sodium (Chloride) 250 mls @ 250 mls/hr [facility] Insulin Glargine 8 units/ (Miscellaneous Medication) 0.08 mls @ 0 mls/[facility] Last Admin: 08/14/18 09:33 Dose: 0.08 mls Isosorbide Mononitrate (Imdur) 60 mg PO BID [facility] Last Admin: 08/14/18 09:33 Dose: 60 mg Levofloxacin (Levaquin) 250 mg PO 0600 [facility] Last Admin: 08/14/18 05:34 Dose: 250 mg Loratadine (Claritin) 10 mg PO DAILYPRN PRN PRN Reason: Sinus Symptoms Miscellaneous Medication (Pharmacy To Dose) 1 each IVPB PRN PRN PRN Reason: Pharmacy to dose Nifedipine (Procardia Xl) 90 mg PO DAILY [facility] Last Admin: 08/14/18 09:32 Dose: 90 mg Nitroglycerin (Nitrostat) 0.4 mg SL Q5MIN PRN PRN Reason: Chest Pain Hold Vancomycin For (Level >20) 0 each FS .AT DIALYSIS [facility] Ondansetron HCl (Zofran) 4 mg IVP Q6H PRN PRN Reason: Nausea/Vomiting Pantoprazole Sodium (Protonix) 40 mg PO DAILY [facility] Last Admin: 08/14/18 09:33 Dose: 40 mg Polyethylene Glycol (Miralax) 17 gm PO DAILY [facility] Last Admin: 08/14/18 09:33 Dose: Not Given Senna (Senokot) 2 tab PO HSPRN PRN PRN Reason: Constipation Senna/Docusate Sodium (Senokot S) 2 tab PO BID PRN PRN Reason: Constipation Sodium Chloride (Flush - Normal Saline) 10 ml IVF PRN PRN PRN Reason: Saline Flush Tramadol HCl (Ultram) 50 mg PO Q4H PRN PRN Reason: Moderate Pain (4-6)
[2018-08-14] MEDS: Atorvastatin Calcium 10 MG TAB PO SCH (19:59)
[2018-08-15] MEDS: cloNIDine 0.1 MG TAB PO PRN (04:40)
[2018-08-15 06:30] LABS: #Eosinphils 0.6 thou/uL (0.0-0.7); #Lymphocytes 0.8 thou/uL (1.20-3.40); #Monocytes 0.4 thou/uL (0.11-0.59); #Neutrophils 2.1 thou/uL (1.40-6.50); %Basophils 0.9 % (0.0-1.0); %Eosinophils 16.2 % (0.0-10.0); %Lymphocytes 20.5 % (21.0-51.0); %Monocytes 9.5 % (0.0-10.0); %Neutrophils 52.9 % (42.0-75.0); Hemoglobin 9.8 g/dL (14.0-18.0); Mean Corpuscular HGB CONC 32.7 g/dL (32.0-36.0); Mean Corpuscular Hemoglobin 28.3 pg (27.0-31.0); Mean Corpuscular Volume 86.4 fL (78.0-98.0); Mean Platelet Volume 7.8 fL (7.4-10.4); Platelet Count 225 thou/uL (130-400); RBC Distribution Width 17.2 % (11.5-14.5); Red Blood Cell (RBC) Count 3.45 mill/uL (4.70-6.10)
[2018-08-15 06:42] LABS: Anion Gap 11 mmol/L (10-20); BUN (Urea Nitrogen) 22 mg/dL (8.4-25.7); Calc. Creatinine Clearance 22 mL/min (70-130); Calcium 8.9 mg/dL (7.8-10.44); Carbon Dioxide 29 mmol/L (22-29); Chloride 99 mmol/L (98-107); Estimated GFR-MDRD 15; Glucose 76 mg/dL (70-105); Potassium 3.2 mmol/L (3.5-5.1); Sodium 136 mmol/L (136-145)
[2018-08-15] MEDS: Ferrous Sulfate 325 MG TAB PO SCH (09:13)
[2018-08-15] MEDS: Aspirin 81 mg Enteric Coated Tablet PO SCH (09:14)
[2018-08-15] MEDS: hydrALAZINE 25 MG TAB PO SCH ×3 (09:14→20:27)
[2018-08-15] MEDS: Allopurinol 300 MG TAB PO SCH (09:14)
[2018-08-15] MEDS: Fish Oil 1,000 MG CAP PO SCH ×2 (09:14→20:27)
[2018-08-15] MEDS: Heparin 5,000 UNITS/ML VIAL SC SCH ×2 (09:14→20:27)
[2018-08-15] MEDS: Carvedilol 25 MG TAB PO SCH ×3 (09:14→20:26)
[2018-08-15] MEDS: Insulin Glargine 8 UNITS in Pre-Filled Syringe 1 EACH SC SCH (09:15)
[2018-08-15] MEDS: Polyethylene Glycol 3350 17 GM Packet PO SCH (09:15)
[2018-08-15] MEDS ORDERED: Allopurinol 300 MG TAB PO SCH ×2 (10:23→10:45)
[2018-08-15] MEDS ORDERED: Epoetin (ESRD) 20,000 UNITS/ML SC SCH (10:30)
--- NOTE | 2018-08-15 11:40 | PRG ---
DATE OF SERVICE: 08/15/2018 SERVICE: Renal Medicine. SUBJECTIVE: Mr. Quinn is a 58-year-old black male with ESRD, who was admitted for generalized malaise . He was empirically treated for a possible infection. In addition, a cardiac echo was done, which showed a normal EF. This morning, he is feeling a little better. He denies any chest pain or shortn ess of breath. PHYSICAL EXAMINATION: VITAL SIGNS: Blood pressure is noted at 164/70, heart rate 72, respiratory rate 18, temperature 98.1 , pulse ox 94%. GENERAL EXAM: Noted to be awake, alert, supine, comfortable, not in distress. SKIN: Adequate turgor. HEENT: He has slightly pale conjunctivae, anicteric sclerae. NECK: No neck mass, no carotid bruits, no JVD. CHEST: No deformities. LUNGS: Decreased breath sounds. HEART: Normal sinus rhythm. No murmur, no gallops, no rubs. ABDOMEN: Globular, soft, nontender, no masses. EXTREMITIES: No edema. Medications of 08/15/2018 reviewed. LABORATORY DATA: Laboratories of 08/15/2018, white count 4, hemoglobin 9.8. Sodium 136, potassium 3 .2, chloride 99, carbon dioxide 29, BUN 22, creatinine 4.93, glucose 76, calcium 8.9. ASSESSMENT AND PLAN: 1. Mild hypokalemia. We will observe 2. End-stage renal disease, stable. Continuing Thursday, Thursday, Thursday dialysis. Fluid removal o nly as tolerated. No indication for any emergent dialysis today. 3. Generalized malaise slowly improving. Unclear etiology. Cortisol levels were noted to be normal . In addition, cardiac echocardiogram showed normal ejection fraction. 4. Anemia. Start maintenance Epogen at 7500 units subcutaneous every week. Agree with current management.
[2018-08-15] MEDS: Doxycycline 100 MG CAP PO SCH ×2 (12:00→20:33)
[2018-08-15] MEDS: NIFEdipine XL 90 MG TAB PO SCH (12:00)
--- NOTE | 2018-08-15 18:04 | PDOC.PN ---
- Subjective Encounter Start Date: 08/15/18 Encounter Start Time: 10:00 Pt seen for followup re: acute hypoxic respiratory failure. Feels weak. No other complaints. - Objective Vital Signs & Weight: Vital Signs (12 hours) Temp Pulse Resp BP BP Pulse Ox 08/15/18 15:15 97.4 F L 71 18 145/62 H 95 08/15/18 14:57 71 135/60 08/15/18 14:55 71 135/60 94 L 08/15/18 12:00 98.0 F 71 16 166/65 H 166/65 H 95 08/15/18 09:22 94 L 08/15/18 09:14 72 164/70 H 08/15/18 08:00 98.1 F 72 18 164/70 H 94 L Weight Admit Weight 204 lb 9 oz Weight 216 lb 11.43 oz I&O: 08/14/18 08/15/18 08/16/18 06:59 06:59 06:59 Intake Total 450 360 Balance 450 360 Result Diagrams: 08/15/18 05:39 08/15/18 05:39 Additional Labs: Accuchecks 08/15/18 08/15/18 08/15/18 16:36 11:44 04:28 POC Glucose 112 H 80 65 L 08/14/18 20:31 POC Glucose 88 Phys Exam - Physical Examination Constitutional: NAD HEENT: moist MMs Neck: supple Respiratory: clear to auscultation bilateral Cardiovascular: RRR Gastrointestinal: non-tender Neurological: moves all 4 limbs Lymphatic: no nodes Psychiatric: normal affect Dx/Plan (1) Acute respiratory failure with hypoxia Code(s): J96.01 - ACUTE RESPIRATORY FAILURE WITH HYPOXIA Status: Acute Comment: Improving, but pt is still on supplemental oxygen. Will try to wean off of oxygen. Discontinue antibiotics, all cultures negative so far (2) ESRD (end stage renal disease) on dialysis Code(s): N18.6 - END STAGE RENAL DISEASE; Z99.2 - DEPENDENCE ON RENAL DIALYSIS Status: Chronic Comment: dialysis per nephrology (3) Gout Code(s): M10.9 - GOUT, UNSPECIFIED Status: Chronic Qualifiers: Gout site: unspecified site Gout etiology: unspecified cause Chronicity: chronic Presence of tophus: without tophus Qualified Code(s): M1A.9XX0 - Chronic gout, unspecified, without tophus (tophi) Comment: stable (4) Hypertension Code(s): I10 - ESSENTIAL (PRIMARY) HYPERTENSION Status: Chronic Comment: Increase scheduled hydralazine to 50 mg PO TID yesterday, continue to monitor vital signs and titrate antihypertensives as needed (5) Chronic hepatitis C Code(s): B18.2 - CHRONIC VIRAL HEPATITIS C Status: Chronic Comment: stable - Plan PT/OT, out of bed/ambulate * . Ambulate patient. Discontinue antibiotics and observe. Wean off of supplemental oxygen. Review of Systems - Review of Systems Constitutional: weakness. negative: fever, chills, sweats, malaise Respiratory: negative: Cough, Shortness of Breath, SOB with Excertion, Pleuritic Pain, Wheezing Cardiovascular: negative: chest pain, palpitations, orthopnea, paroxysmal nocturnal dyspnea, edema, light headedness - Medications/Allergies Allergies/Adverse Reactions: Allergies Allergy/AdvReac Type Severity Reaction Status Date / Time No Known Drug Allergies Allergy Verified 09/03/15 08:35 Medications: Current Medications Acetaminophen (Tylenol) 650 mg PO Q4H PRN PRN Reason: Headache/Fever/Mild Pain (1-3) Hydrocodone Bitart/Acetaminophen ([place] 5/325) 1 tab PO Q4H PRN PRN Reason: Moderate Pain (4-6) Last Admin: 08/11/18 15:23 Dose: 1 tab Allopurinol (Zyloprim) 150 mg PO DAILY [facility] Aspirin (Ecotrin) 81 mg PO DAILY [facility] Last Admin: 08/15/18 09:14 Dose: 81 mg Atorvastatin Calcium (Lipitor) 10 mg PO [facility] Last Admin: 08/14/18 19:59 Dose: 10 mg Benzonatate (Tessalon) 100 mg PO Q4H PRN PRN Reason: Cough Bisacodyl (Dulcolax) 10 mg PO DAILYPRN PRN PRN Reason: Constipation Bisacodyl (Dulcolax) 10 mg [place] DAILYPRN PRN PRN Reason: Constipation Calcium Carbonate (Tums) 1,000 mg PO Q4H PRN PRN Reason: Heartburn or Indigestion Carvedilol (Coreg) 25 mg PO TID [facility] Last Admin: 08/15/18 14:57 Dose: 25 mg Clonidine (Catapres) 0.1 mg PO Q4H PRN PRN Reason: Systolic BP > 160 Last Admin: 08/15/18 04:40 Dose: 0.1 mg Cosyntropin (Cortrosyn) 250 mcg SLOW IVP [facility] Last Admin: 08/12/18 15:32 Dose: 250 mcg Doxycycline Hyclate (Vibramycin) 100 mg PO BID [facility] Last Admin: 08/15/18 12:00 Dose: 100 mg Epoetin Raghav (Procrit) 7,500 units SC Q7D [facility] Last Admin: 08/15/18 14:57 Dose: 7,500 units Ferrous Sulfate (Feosol) 325 mg PO QAM-[facility] Last Admin: 08/15/18 09:13 Dose: 325 mg Fish Oil (Fish Oil) 1,000 mg PO BID [facility] Last Admin: 08/15/18 09:14 Dose: 1,000 mg Guaifenesin (Robitussin Sf) 200 mg PO Q4H PRN PRN Reason: Cough Heparin Sodium (Porcine) (Heparin) 5,000 units SC BID [facility] Last Admin: 08/15/18 09:14 Dose: 5,000 units Hydralazine HCl (Apresoline) 10 mg SLOW IVP Q6H PRN PRN Reason: SBP Greater Than 170 Hydralazine HCl (Apresoline) 50 mg PO TID [facility] Last Admin: 08/15/18 14:57 Dose: 50 mg Vancomycin HCl 1.25 gm/ Sodium (Chloride) 250 mls @ 166.667 mls/hr [facility] Vancomycin HCl 1 gm/ Device 200 mls @ 200 mls/hr [facility] Vancomycin HCl 750 mg/ Sodium (Chloride) 250 mls @ 250 mls/hr IVPB [facility] Insulin Glargine 8 units/ (Miscellaneous Medication) 0.08 mls @ 0 mls/[facility] Last Admin: 08/15/18 09:15 Dose: Not Given Isosorbide Mononitrate (Imdur) 60 mg PO BID [facility] Last Admin: 08/15/18 09:14 Dose: 60 mg Levofloxacin (Levaquin) 250 mg PO 0600 [facility] Last Admin: 08/15/18 04:41 Dose: 250 mg Loratadine (Claritin) 10 mg PO DAILYPRN PRN PRN Reason: Sinus Symptoms Miscellaneous Medication (Pharmacy To Dose) 1 each IVPB PRN PRN PRN Reason: Pharmacy to dose Nifedipine (Procardia Xl) 90 mg PO DAILY [facility] Last Admin: 08/15/18 12:00 Dose: 90 mg Nitroglycerin (Nitrostat) 0.4 mg SL Q5MIN PRN PRN Reason: Chest Pain Hold Vancomycin For (Level >20) 0 each FS .AT DIALYSIS [facility] Ondansetron HCl (Zofran) 4 mg IVP Q6H PRN PRN Reason: Nausea/Vomiting Pantoprazole Sodium (Protonix) 40 mg PO DAILY [facility] Last Admin: 08/15/18 09:13 Dose: 40 mg Polyethylene Glycol (Miralax) 17 gm PO DAILY [facility] Last Admin: 08/15/18 09:15 Dose: Not Given Senna (Senokot) 2 tab PO HSPRN PRN PRN Reason: Constipation Senna/Docusate Sodium (Senokot S) 2 tab PO BID PRN PRN Reason: Constipation Sodium Chloride (Flush - Normal Saline) 10 ml IVF PRN PRN PRN Reason: Saline Flush Tramadol HCl (Ultram) 50 mg PO Q4H PRN PRN Reason: Moderate Pain (4-6)
[2018-08-15] MEDS: Atorvastatin Calcium 10 MG TAB PO SCH (20:26)
[2018-08-16 05:15] LABS: #Eosinphils 0.7 thou/uL (0.0-0.7); #Lymphocytes 0.9 thou/uL (1.20-3.40); #Monocytes 0.5 thou/uL (0.11-0.59); #Neutrophils 2.1 thou/uL (1.40-6.50); %Eosinophils 15.7 % (0.0-10.0); %Lymphocytes 22.3 % (21.0-51.0); %Monocytes 11.9 % (0.0-10.0); %Neutrophils 49.1 % (42.0-75.0); Hemoglobin 9.9 g/dL (14.0-18.0); Mean Corpuscular HGB CONC 33.2 g/dL (32.0-36.0); Mean Corpuscular Hemoglobin 28.3 pg (27.0-31.0); Mean Corpuscular Volume 85.1 fL (78.0-98.0); Mean Platelet Volume 7.7 fL (7.4-10.4); Platelet Count 262 thou/uL (130-400); Red Blood Cell (RBC) Count 3.49 mill/uL (4.70-6.10); White Blood Cell (WBC) Count 4.2 thou/uL (4.8-10.8)
[2018-08-16 05:44] LABS: Anion Gap 16 mmol/L (10-20); BUN (Urea Nitrogen) 30 mg/dL (8.4-25.7); Calc. Creatinine Clearance 17 mL/min (70-130); Calcium 8.9 mg/dL (7.8-10.44); Carbon Dioxide 24 mmol/L (22-29); Chloride 98 mmol/L (98-107); Estimated GFR-MDRD 11; Glucose 72 mg/dL (70-105); Potassium 3.6 mmol/L (3.5-5.1); Sodium 134 mmol/L (136-145)
[2018-08-16] MEDS: Doxycycline 100 MG CAP PO SCH ×2 (08:15→20:25)
[2018-08-16] MEDS: Ferrous Sulfate 325 MG TAB PO SCH (08:15)
[2018-08-16] MEDS: Aspirin 81 mg Enteric Coated Tablet PO SCH (08:15)
[2018-08-16] MEDS: Carvedilol 25 MG TAB PO SCH ×3 (08:15→20:26)
[2018-08-16] MEDS: Fish Oil 1,000 MG CAP PO SCH ×2 (08:16→20:25)
[2018-08-16] MEDS: Polyethylene Glycol 3350 17 GM Packet PO SCH (08:17)
[2018-08-16] MEDS: Heparin 5,000 UNITS/ML VIAL SC SCH ×2 (08:19→20:25)
[2018-08-16 08:50] LABS: Vancomycin, Random 20.7 ug/mL (See Comment)
[2018-08-16] MEDS: hydrALAZINE 25 MG TAB PO SCH ×3 (09:00→20:26)
[2018-08-16] MEDS: Insulin Glargine 8 UNITS in Pre-Filled Syringe 1 EACH SC SCH (09:00)
[2018-08-16] MEDS: Allopurinol 300 MG TAB PO SCH (14:53)
[2018-08-16] MEDS: NIFEdipine XL 90 MG TAB PO SCH (14:56)
--- NOTE | 2018-08-16 15:43 | PQF ---
CLINICAL DOCUMENTATION IMPROVEMENT CLARIFICATION FORM: ICD-10 Updated PLEASE DO AN ADDENDUM TO THE PROGRESS NOTE WITH ANY DOCUMENTATION UPDATES OR ADDITIONS AND CARRY THROUGH TO DC SUMMARY. THANK YOU. DATE: 08/17/18 ATTN : DR. LOAIZA Please exercise your independent, professional judgment in responding to the clarification form. Clinical indicators are provided on the bottom of this form for your review Please check appropriate box(s) to clarify if the following diagnosis has been ruled in or ruled out: SEPSIS [ ] Ruled in diagnosis [ ] Continue to treat [ ] Resolved [ ] Ruled out diagnosis [ ] Cannot rule out diagnosis [ ] Other diagnosis [x ] Unable to determine In addition, please specify: Present on Admission (POA): [ ] Yes [ ] No [ x] Unable to determine For continuity of documentation, please document condition throughout progress notes and discharge summary. Thank You. CLINICAL INDICATORS - SIGNS / SYMPTOMS / LABS ER NOTE: "HISTORIAN REPORTS CHILLS, FATIGUE, REPORTS FEVER" ER DDX: "SEPSIS" PROGRESS NOTE: "CONTINUING ANTIBIOTICS NOW FOR SUSPECTED SEPSIS" 08/12: WBC 3.8 RR 22 RISKS: POSSIBLE PNEUMONIA PER H&P TREATMENT: IV CEFEPIME (ER) IV VANCOMYCIN (ER) VIBRAMYCIN (08/11-PRESENT) URINE AND BLOOD CULTURES (This form is maintained as a part of the permanent medical record) 2014 [employer]. All Rights Reserved [email or web address] [email or web address] Office: [phone] MTDAngela
--- NOTE | 2018-08-16 16:00 | PQF ---
CLINICAL DOCUMENTATION IMPROVEMENT CLARIFICATION FORM: ICD-10 Updated PLEASE DO AN ADDENDUM TO THE PROGRESS NOTE WITH ANY DOCUMENTATION UPDATES OR ADDITIONS AND CARRY THROUGH TO DC SUMMARY. THANK YOU. DATE: 08/16/18 ATTN : DR. MITCHELL Please exercise your independent, professional judgment in responding to the clarification form. Clinical indicators are provided on the bottom of this form for your review Please check appropriate box(s) to clarify if the following diagnosis has been ruled in or ruled out: PNEUMONIA [ x ] Ruled in diagnosis [ x ] Continue to treat [ ] Resolved [ ] Ruled out diagnosis [ ] Cannot rule out diagnosis [ ] Other diagnosis [ ] Unable to determine In addition, please specify: Present on Admission (POA): [x ] Yes [ ] No [ ] Unable to determine For continuity of documentation, please document condition throughout progress notes and discharge summary. Thank You. CLINICAL INDICATORS - SIGNS / SYMPTOMS / LABS H&P: "A CHEST XRAY DONE IN THE ER WAS SUGGESTIVE OF POSSIBLE BIBASILAR ATELECTASIS VERSUS PNEUMONIA AND SOME FLUID OVERLOAD." CHEST XRAY 08/11: "INCREASED ATTENUATION IN THE LEFT LOWER LOBE, WHICH COULD BE MILD ATELECTASIS OR EARLY PNEUMONIA." RISKS: ACUTE HYPOXIC RESPIRATORY FAILURE / SATS LOW 80'S @ HEMODIALYSIS DIMINISHED BREATH SOUNDS (ER NURSING ASSESSMENT 08/15) TREATMENT: IV CEFEPIME (ER) IV VANCOMYCIN (ER) VIBRAMYCIN (08/11-PRESENT) SUPPLEMENTAL OXYGEN [employer](This form is maintained as a part of the permanent medical record) 2014 [employer]. All Rights Reserved [email or web address] [email or web address] Office: [phone] [facility]
[2018-08-16] MEDS: Atorvastatin Calcium 10 MG TAB PO SCH (20:25)
[2018-08-17 07:11] LABS: Anion Gap 12 mmol/L (10-20); BUN (Urea Nitrogen) 14 mg/dL (8.4-25.7); Calc. Creatinine Clearance 27 mL/min (70-130); Calcium 9.2 mg/dL (7.8-10.44); Carbon Dioxide 27 mmol/L (22-29); Chloride 100 mmol/L (98-107); Estimated GFR-MDRD 18; Glucose 97 mg/dL (70-105); Potassium 3.5 mmol/L (3.5-5.1); Sodium 135 mmol/L (136-145)
[2018-08-17 07:17] VITALS: TEMP 98.3
[2018-08-17] MEDS: NIFEdipine XL 90 MG TAB PO SCH (07:59)
[2018-08-17] MEDS: hydrALAZINE 25 MG TAB PO SCH ×2 (08:00→14:49)
[2018-08-17] MEDS: Carvedilol 25 MG TAB PO SCH ×2 (08:00→14:50)
[2018-08-17] MEDS: Ferrous Sulfate 325 MG TAB PO SCH (08:00)
[2018-08-17] MEDS: Doxycycline 100 MG CAP PO SCH (08:00)
[2018-08-17] MEDS: Fish Oil 1,000 MG CAP PO SCH (08:00)
[2018-08-17] MEDS: Allopurinol 300 MG TAB PO SCH (08:01)
[2018-08-17] MEDS: Aspirin 81 mg Enteric Coated Tablet PO SCH (08:01)
[2018-08-17] MEDS: Polyethylene Glycol 3350 17 GM Packet PO SCH (08:02)
[2018-08-17] MEDS: Insulin Glargine 8 UNITS in Pre-Filled Syringe 1 EACH SC SCH (08:03)
--- NOTE | 2018-08-17 08:03 | PDOC.PN ---
- Subjective Encounter Start Date: 08/16/18 Encounter Start Time: 14:55 -: old records requested/rev Pt seen and examined, chart reviewed in its entirety, this is my first visit with this patient No F/C, no N/V/D/C, no CP or SOB, no cough or sputum production All systems reviewed and neg except as above Pt doing well with mobility and D/C'd by PT. Still requiring O2, 2L NC at present - Objective MAR Reviewed: Yes Vital Signs & Weight: Vital Signs (12 hours) Temp Pulse Resp BP Pulse Ox 08/17/18 07:13 98.3 F 77 18 172/70 H 99 08/17/18 04:47 98.1 F 78 18 169/63 H 97 08/17/18 00:00 98.1 F 77 18 154/53 H 96 08/16/18 20:26 81 Weight Admit Weight 204 lb 9 oz Weight 216 lb 11.43 oz I&O: 08/16/18 08/17/18 08/18/18 06:59 06:59 06:59 Intake Total 930 860 Output Total 4200 Balance 930 -3340 Result Diagrams: 08/16/18 04:41 08/17/18 06:29 Additional Labs: Accuchecks 08/17/18 08/16/18 08/16/18 04:52 20:27 16:33 POC Glucose 101 105 93 08/16/18 12:30 POC Glucose 93 Radiology Reviewed by me: Yes Phys Exam - Physical Examination Constitutional: NAD HEENT: PERRLA, moist MMs, sclera anicteric, oral pharynx no lesions Neck: no nodes, no JVD, supple, full ROM Respiratory: no rales, no rhonchi coarse bilateral breath sounds, good air movement Cardiovascular: RRR, no significant murmur, no rub Gastrointestinal: soft, non-tender, no distention, positive bowel sounds Musculoskeletal: edema present Neurological: non-focal, normal sensation, moves all 4 limbs Lymphatic: no nodes Psychiatric: normal affect, A&O x 3 Skin: no rash, normal turgor, cap refill <2 seconds Dx/Plan (1) Acute respiratory failure with hypoxia Code(s): J96.01 - ACUTE RESPIRATORY FAILURE WITH HYPOXIA Status: Acute Comment: Improving, but pt is still on supplemental oxygen. Will try to wean off of oxygen. Discontinued antibiotics, all cultures negative (2) Hemodialysis access site with arteriovenous graft Code(s): Z99.2 - DEPENDENCE ON RENAL DIALYSIS Status: Chronic (3) Pneumonia, community acquired Code(s): J18.9 - PNEUMONIA, UNSPECIFIED ORGANISM Status: Acute Qualifiers: Laterality: unspecified laterality Qualified Code(s): J18.9 - Pneumonia, unspecified organism (4) Chronic hepatitis C Code(s): B18.2 - CHRONIC VIRAL HEPATITIS C Status: Chronic Qualifiers: Hepatic coma status: without hepatic coma Qualified Code(s): B18.2 - Chronic viral hepatitis C Comment: stable (5) DM type 2 (diabetes mellitus, type 2) Status: Chronic Qualifiers: Diabetes mellitus rn long term care insulin use: with rn long term care use Diabetes mellitus complication status: with kidney complications Chronic kidney disease stage: on chronic dialysis (6) ESRD (end stage renal disease) on dialysis Code(s): N18.6 - END STAGE RENAL DISEASE; Z99.2 - DEPENDENCE ON RENAL DIALYSIS Status: Chronic Comment: dialysis per nephrology (7) Gout Code(s): M10.9 - GOUT, UNSPECIFIED Status: Chronic Qualifiers: Gout site: unspecified site Gout etiology: unspecified cause Chronicity: chronic Presence of tophus: without tophus Qualified Code(s): M1A.9XX0 - Chronic gout, unspecified, without tophus (tophi) Comment: stable (8) Hypertension Code(s): I10 - ESSENTIAL (PRIMARY) HYPERTENSION Status: Chronic Qualifiers: Hypertension type: essential hypertension Qualified Code(s): I10 - Essential (primary) hypertension Comment: Increase scheduled hydralazine to 50 mg PO TID yesterday, continue to monitor vital signs and titrate antihypertensives as needed - Plan cont current plan of care, PT/OT, respiratory therapy, out of bed/ambulate * . home in 1-2 days when O2 weaned off
--- NOTE | 2018-08-17 09:28 | PRG ---
DATE OF SERVICE: 08/17/2018 SERVICE: Renal Medicine. SUBJECTIVE: Mr. Quinn is a 58-year-old black male with end-stage renal disease and being followed by the Renal Service for his maintenance hemodialysis. He underwent dialysis yesterday without any diff iculty. He was initially admitted for generalized malaise. A cardiac echo has been done, which show ed a normal EF. In addition, the patient has been treated for an empiric infection. He has been doi ng better since admission. No new complaints today. He denies any chest pain or shortness of breath . PHYSICAL EXAMINATION: VITAL SIGNS: Blood pressure 172/70, heart rate 77, respiratory rate 18, temperature 98.3, pulse ox 9 9%. GENERAL: Noted to be awake, supine, comfortable, not in distress. SKIN: Adequate turgor. HEENT: He has slightly pale conjunctivae, anicteric sclerae. NECK: No neck mass, no carotid bruits, no JVD. CHEST: No deformities. LUNGS: Clear breath sounds. No wheezing, no crackles. HEART: Normal sinus rhythm. No murmur, no gallops, no rubs. ABDOMEN: Globular, soft, nontender, no masses. EXTREMITIES: No edema, no deformities. MEDICATIONS: Of 08/17/2018 was reviewed. LABORATORY DATA: Of 08/16/2018, white count 4.2, hemoglobin 9.9. On 08/17/2018, sodium 135, potassi um 3.5, chloride 100, carbon dioxide 27, BUN 14, creatinine 4.06, glucose 97, calcium 9.2. ASSESSMENT AND PLAN: 1. End-stage renal disease, stable. Tolerating current hemodialysis regimen. The patient had the f luid removed yesterday and he tolerated said treatment. Continue Thursday, Thursday, Thursday dialysis. No changes will be made with the current dialysis regimen. 2. Anemia, on weekly Epogen. 3. Generalized malaise - unclear etiology, much improved. From a renal point of view, the patient c an be discharged anytime.
--- NOTE | 2018-08-17 11:24 | RAD ---
LEFT KNEE RADIOGRAPH FOUR VIEW SERIES: INDICATION: Pain. FINDINGS: There is mild osteophytosis. Joint compartments are relatively well preserved, although there is mil d narrowing of the patellofemoral joint space. There is no significant suprapatellar joint capsular distention. Scattered vascular disease is incidentally noted. There is osseous demineralization. N o acute fracture. IMPRESSION: 1. Findings most consistent with mild osteoarthritis. 2. There is no acute fracture. POS: [facility]
[2018-08-17 13:36] VITALS: BMI 37.0
[2018-08-17] MEDS: Heparin 5,000 UNITS/ML VIAL SC SCH (14:30)
[2018-08-17 14:50] VITALS: BP 145/68
--- NOTE | 2018-08-17 23:59 | DIS ---
DATE OF ADMISSION: 08/11/2018 DATE OF DISCHARGE: 08/17/2018 DISCHARGE DIAGNOSES: As of the followin. Acute respiratory failure with hypoxia. 2. End-stage renal disease. 3. Gout. 4. Hypertension. 5. Chronic hepatitis C. HOSPITAL COURSE: Patient is a very pleasant old male who presents to the hospital initially with com plaints of shortness of breath and generalized weakness. The patient's initial thoughts were possibl e volume overload versus pneumonia. The patient states that he was very compliant with his dialysis. Cardiac enzymes were normal and also antibiotics were started at this time. The patient also had a n echocardiogram which indicated an EF of 50% -55%, which is mild mitral regurgitation and tricuspid regurgitation. The patient continued to improve throughout the hospital stay. He did not require an y oxygen on discharge, patient did complain today of some left knee pain. I did x-rays which did not indicate any acute abnormality, just arthritis. I did order physical therapy. The patient refused. However, the patient has been getting up and walking to going to the bathroom. Also, Nephrology fraser s seen this patient for dialysis purposes. PHYSICAL EXAMINATION: VITAL SIGNS: Temperature of 98.8, heart rate of 77, blood pressure 145/68. GENERAL: He is awake, alert, oriented x3, does not appear in distress. CARDIOVASCULAR: S1, S2 present. No murmurs or gallops. ABDOMEN: Soft, nontender. Bowel sounds are present x2. EXTREMITIES: No edema. Left knee, there is no redness or joint fluid effusion noted. Just when I t ouch the knee, patient states it hurts. HOME MEDICATIONS ON DISCHARGE: Aspirin 81 mg daily, allopurinol 300 mg daily, nifedipine 90 mg daily , isosorbide 60 mg b.i.d., insulin 80 units q.a.m., iron 325 q.a.m., Nexium 40 mg daily, Coreg 25 t.i .d., atorvastatin 10 mg at bedtime, hydralazine 25 mg t.i.d., doxycycline 100 mg b.i.d. for another 4 days. DISCHARGE INSTRUCTIONS: Again, patient will be discharged home. He will follow up with primary care doctor and also with his extension clerk.
== END 2018-08-17 17:09 | disposition home or self-care (01) | DRG 291 ==
LOC: ERS 09:55 → T4-B 12:47
PROVIDERS: ADMIT Internal Medicine; ATTEND Internal Medicine
PROC: 5A1D70Z Performance of Urinary Filtration, Intermittent, Less than 6 Hours Per Day (ICD-10-PCS; principal; 2018-08-11)
DX: I13.0 Hypertensive heart and chronic kidney disease with heart failure and stage 1 through stage 4 chronic kidney disease, or unspecified chronic kidney disease (principal); J18.9 Pneumonia, unspecified organism; J96.01 Acute respiratory failure with hypoxia; N18.6 End stage renal disease; I50.33 Acute on chronic diastolic (congestive) heart failure; B19.20 Unspecified viral hepatitis C without hepatic coma; Z99.2 Dependence on renal dialysis; R53.81 Other malaise; E87.6 Hypokalemia; D50.9 Iron deficiency anemia, unspecified; E11.22 Type 2 diabetes mellitus with diabetic chronic kidney disease; E78.5 Hyperlipidemia, unspecified; M10.9 Gout, unspecified; Z79.899 Other long term (current) drug therapy; Z79.82 Long term (current) use of aspirin; K59.09 Other constipation; I08.1 Rheumatic disorders of both mitral and tricuspid valves; M19.90 Unspecified osteoarthritis, unspecified site; E11.21 Type 2 diabetes mellitus with diabetic nephropathy; K21.9 Gastro-esophageal reflux disease without esophagitis; F32.9 Major depressive disorder, single episode, unspecified; I25.10 Atherosclerotic heart disease of native coronary artery without angina pectoris; Z95.5 Presence of coronary angioplasty implant and graft
CPT/HCPCS: 36415; 36416; 71045; 80048; 80053; 80202; 80400; 81001; 82553; 83880; 84484; 85025; 87040; 87086; 90935; 93005; 93306; 93798; 96365; G0257; G8978-GP-CK; G8979-GP-CK; G8980-GP-CK; G8987-GO-CJ; G8988-GO-CI; J0834; J1644; J3370; J3480; J7050; Q4081

== ENCOUNTER 2018-10-06 05:49 | Observation (INO) | payer MEDICARE, MEDICAID ==
[2018-10-06 06:44] LABS: Hemoglobin 9.5 g/dL (14.0-18.0); Mean Corpuscular HGB CONC 32.6 g/dL (32.0-36.0); Mean Corpuscular Hemoglobin 28.2 pg (27.0-31.0); Mean Corpuscular Volume 86.3 fL (78.0-98.0); Platelet Count 227 thou/uL (130-400); RBC Distribution Width 17.2 % (11.5-14.5); Red Blood Cell (RBC) Count 3.39 mill/uL (4.70-6.10)
[2018-10-06 06:58] LABS: Band 4 % (5-11); Eosinophils 4 % (0-10); Hypochromia SLIGHT = 6-15 cells (100X) (0-5/hpf); Lymphocytes 15 % (21-51); MDiff Complete? YES; Monocytes 14 % (0-10); Neutrophil 56 % (42-75); PLT Morphology Comment Appears Adequate; Polychromasia SLIGHT = 2-3 cells (100X) (0-2/hpf); Reactive Lymphocytes 5 % (0-10); Target Cells SLIGHT = 2-5 cells (100X) (0-1/hpf)
[2018-10-06 07:02] LABS: ALT (SGPT) Less than 7 U/L (8-55); AST (SGOT) 13 U/L (5-34); Albumin 3.3 g/dL (3.5-5.0); Alkaline Phosphatase 62 U/L (40-150); Anion Gap 15 mmol/L (10-20); BUN (Urea Nitrogen) 28 mg/dL (8.4-25.7); Bilirubin, Total 0.6 mg/dL (0.2-1.2); Calc. Creatinine Clearance 0 mL/min (70-130); Calcium 8.2 mg/dL (7.8-10.44); Carbon Dioxide 29 mmol/L (22-29); Chloride 91 mmol/L (98-107); Estimated GFR-MDRD 11; Globulin 3.8 g/dL (2.4-3.5); Glucose 123 mg/dL (70-105); Potassium 3.6 mmol/L (3.5-5.1); Protein, Total 7.1 g/dL (6.0-8.3); Sodium 131 mmol/L (136-145)
--- NOTE | 2018-10-06 08:20 | RAD ---
SINGLE VIEW OF THE CHEST: Comparison: 08-11-18 History: Generalized weakness. FINDINGS: Single view of the chest shows an enlarged but stable cardiomediastinal silhouette. There is no evide nce of consolidation, mass, or pleural effusion. Degenerative changes are seen in the spine. IMPRESSION: 1. No evidence of acute cardiopulmonary disease. 2. Stable cardiomegaly. POS: [facility]
[2018-10-06] MEDS ORDERED: Bisacodyl 5 MG TAB PO PRN (10:06)
[2018-10-06] MEDS ORDERED: Loratadine 10 MG TAB PO PRN (10:06)
[2018-10-06] MEDS ORDERED: Cepastat Lozenges 1 LOZ PO PRN (10:06)
[2018-10-06] MEDS ORDERED: Eucerin (Mineral Oil/Petrolatum,White) 30 gm Jar TOP PRN (10:06)
[2018-10-06] MEDS ORDERED: HYDROcodone/Acetaminophen 5/325 mg Tablet PO PRN (10:06)
[2018-10-06] MEDS ORDERED: Sodium Chloride 0.65% Nasal 44 ML BOT EA NARE PRN (10:06)
[2018-10-06] MEDS ORDERED: Acetaminophen 325 MG TAB PO PRN (10:06)
[2018-10-06] MEDS ORDERED: Calcium Carbonate 500 MG ChewTAB PO PRN (10:06)
[2018-10-06] MEDS ORDERED: Bisacodyl 10 MG SUPP PR PRN (10:06)
[2018-10-06] MEDS ORDERED: hydrALAZINE 20 MG/ML VIAL SLOW IVP PRN (10:06)
[2018-10-06] MEDS ORDERED: HumaLOG 300 UNITS/3 ML VIAL SC PRN ×2 (10:06)
[2018-10-06] MEDS ORDERED: Diabetic Tussin 200 MG/10 ML UDCUP PO PRN (10:06)
[2018-10-06] MEDS ORDERED: Artificial Tears 18 DROP/0.9 ML EA EYE PRN (10:06)
[2018-10-06] MEDS ORDERED: Dextrose 5% in Water 1,000 ML IV PRN (10:06)
[2018-10-06] MEDS ORDERED: Ondansetron ODT 4 MG TAB PO PRN (10:06)
[2018-10-06] MEDS ORDERED: Cosyntropin 250 MCG VIAL SLOW IVP SCH (10:06)
[2018-10-06] MEDS ORDERED: Ondansetron PF 4 MG/2 ML Vial IVP PRN (10:06)
[2018-10-06] MEDS ORDERED: Loperamide HCl 2 MG CAP PO PRN (10:06)
[2018-10-06] MEDS ORDERED: Dextrose 50% Abboject 50 ML SYRINGE SLOW IVP PRN (10:06)
[2018-10-06] MEDS ORDERED: Senokot S 8.6-50 MG TAB PO PRN (10:06)
[2018-10-06 10:12] VITALS: BMI 27.7
[2018-10-06 11:00] LABS: Troponin I 0.019 ng/mL (< 0.028)
--- NOTE | 2018-10-06 11:53 | HP ---
PRIMARY CARE PHYSICIAN: [facility]. REASON FOR ADMISSION: Hypotension and generalized weakness. HISTORY OF PRESENT ILLNESS: This is a 58-year-old male, who has underlying history of ESRD, on hemodialysis Thursday, Thursday, Thursday as well as underlying history of hypertension and dyslipidemia, who was brought to emergency room for evaluation of generalized weakness. This morning, the patient was too weak to go to dialysis. The patient was also feeling weak and dizzy and that is why the patient called paramedics, and the patient was brought to emergency room for evaluation. In the emergency room, he was hypotensive, his blood pressure was 84/48. He was given fluid and his blood pressure improved to normal. He did not have any fever or hypothermia. He did not have any chest pain, palpitation , or dizziness. He denies any syncope or fall. He denies any increasing shortness of breath. He denies any orthopnea, PND, or leg swelling. He denies any pleurisy or pleuritic chest pain or lower extremity edema or calf tenderness. He denies any immobilization. He denies any hemoptysis, cough, flu-like illness, or UTI symptoms. He denies any constipation, diarrhea, melena, or hematochezia. REVIEW OF SYSTEMS: CONSTITUTIONAL: Negative for weight loss or gain, ability to conduct usual activities. SKIN: Negative for rash, itching. EYES: Negative for double vision, pain. ENT/MOUTH: Negative for nose bleeding, neck stiffness, pain, tenderness. CARDIOVASCULAR: Negative for palpitations, dyspnea on exertion, orthopnea. RESPIRATORY: Negative for shortness of breath, wheezing, cough, hemoptysis, fever or night sweats. GASTROINTESTINAL: Negative for poor appetite, abdominal pain, heartburn, nausea , vomiting, constipation, or diarrhea. GENITOURINARY: Negative for urgency, frequency, dysuria, nocturia. MUSCULOSKELETAL: Negative for pain, swelling. NEUROLOGIC/PSYCHIATRIC: Negative for anxiety, depression. ALLERGY/IMMUNOLOGIC: Negative for skin rash, bleeding tendency. Please see my HPI for pertinent positives and negatives. All other review of systems reviewed and negative except as mentioned in the HPI. EMERGENCY ROOM COURSE: The patient is given 500 mL IV fluid. PAST MEDICAL HISTORY: End-stage renal disease, on hemodialysis Thursday, Thursday, Thursday; diabetes, type 2; dyslipidemia; hypertension; chronic diastolic stage C heart failure; chronic hepatitis C; and gout. PAST SURGICAL HISTORY: Cardiac catheterization with angioplasty, cataract surgery, and hemodialysis access. PAST PSYCHIATRIC HISTORY: Reviewed and negative. SOCIAL HISTORY: The patient lives alone by himself. He is independent for all daily activities of routine life. He denies any tobacco, alcohol, or illicit drug abuse. He quit smoking 30 years ago. FAMILY HISTORY: Hypertension, diabetes, and heart disease runs among several family members. ALLERGIES: NO KNOWN DRUG ALLERGY. CURRENT HOME MEDICATIONS: 1. Coreg 25 mg p.o. b.i.d. 2. Lipitor 10 mg p.o. daily. 3. Hydralazine 100 mg three times daily. 4. Clonidine 0.1 mg twice daily. 5. Gabapentin 300 mg twice daily. 6. Imdur 60 mg daily. 7. Minoxidil 5 mg p.o. daily. 8. Procardia XL 30 mg p.o. daily. PHYSICAL EXAMINATION: VITAL SIGNS: On arrival, blood pressure 84/48, pulse 67, respiratory rate 18, temperature 98.1, saturation 95% on 2 L oxygen. Weight 86.2 kg. GENERAL: The patient is currently alert, awake, follows command. Appears weak. No obvious acute distress. HEENT: Head; normocephalic, atraumatic. Eyes; pupils are round and reactive to light. Extraocular muscle intact. ENT; oropharynx within normal limits. Moist mucous membranes. No oral lesion. No pharyngeal erythema. No exudate. NECK: Supple. No thyromegaly. No carotid bruit. No jugular venous distention. LUNGS: Clear to auscultation without any rhonchi or rales. CARDIAC: S1 and S2 appears regular. No murmur. No gallop. No rub. ABDOMEN: Soft. Bowel sounds present. Nontender. Nondistended. No organomegaly. No mass. No suprapubic tenderness. BACK: Unremarkable. No CVA tenderness. EXTREMITIES: Upper extremity, AV fistula on the left upper extremity with palpable thrill. Lower extremity, no edema. Good distal pulsation. SKIN: No skin rash. HEMATOLOGIC: No lymphadenopathy. LABORATORY DATA: Significant labs: CBC; WBC 4.0, hemoglobin 9.5, and platelets 227. BMP; sodium 131, potassium 3.6, chloride 91, carbon dioxide 29, BUN 28, creatinine 6.40, glucose 123, and calcium 8.2. LFT; AST 13, ALT less than 7, alkaline phosphatase 62, and albumin 3.3. Troponin I 0.010. BNP 1660. ASSESSMENT AND PLAN: Impression: 1. Acute hypotension, suspecting from over-medication. The patient does not have any chest pain or any dyspnea and thromboembolic disorder is extremely unlikely. We will check cosyntropin stim test to rule out any adrenal insufficiency. The patient's blood pressure already improved with IV fluid. 2. Generalized weakness. We will monitor while in hospital, most likely related with hypotension. We will check orthostatic vitals. We will rule out cardiac etiology with serial cardiac enzyme x3. We will check lactic acid level. 3. End-stage renal disease, on hemodialysis. Dr. Sims will be consulted for maintenance hemodialysis. 4. Leukopenia. The patient had leukopenia for a period of time, this is not a new finding. 5. Anemia of renal disease. Nephro-Mali one tablet will be started. This is also a chronic finding. Hyponatremia is also a chronic finding related with renal failure. 6. Elevated BNP, likely due to renal failure and this is also a chronic finding. The patient already had echocardiography in August 2018, which showed diastolic dysfunction. 7. History of hypertension. At this point, because of low blood pressure we will hold on antihypertensive medication and titrate blood pressure medication as needed. 8. Gastroesophageal reflux disease. Continue Pepcid 20 mg daily. 9. Gout. Continue allopurinol 100 mg daily as per home dosage. 10. Diabetes, type 2. Insulin as per sliding scale protocol. We will start insulin once we verify his home medication. 11. Dyslipidemia. Continue Lipitor 10 mg p.o. at bedtime. 12. Deep venous thrombosis prophylaxis is not needed because we are expecting discharge in 24 hours. 13. Gastrointestinal prophylaxis, Pepcid 20 mg p.o. daily. CODE STATUS: The patient is a full code. The patient does not have any surrogate decision maker. DISPOSITION: Disposition plan within 24 hours. PLAN: Plan of care discussed with the patient in detail. Job ID: [id number] MTDD
[2018-10-06 14:04] LABS: Troponin I Less than 0.010 ng/mL (< 0.028)
--- NOTE | 2018-10-06 16:28 | PRG ---
DATE OF SERVICE: 10/06/2018 SERVICE: Renal Medicine. SUBJECTIVE: Mr. Quinn is a 58-year-old black male with ESRD and readmitted for generalized malaise with some degree of hypoxemia. He was felt to be volume depleted at that time. He was given volume with improvement of his blood pressure. He is currently undergoing dialysis today with minimal fluid removal. He is feeling a little better. His weakness is slightly improved. The patient is receiving hemodialysis today and doing well. OBJECTIVE: VITAL SIGNS: Blood pressure is 117/70, heart rate 70, and respiratory rate 12. GENERAL: Awake, somewhat lethargic, not in distress. SKIN: Adequate turgor. HEENT: Slightly pale conjunctivae. Anicteric sclerae. No neck mass. No carotid bruits. No JVD. CHEST: No deformities. LUNGS: Clear breath sounds. HEART: Normal sinus rhythm. No murmurs. No gallops. No rubs. ABDOMEN: Globular, soft, and nontender. EXTREMITIES: No edema. No deformities. MEDICATIONS: Medications of October 06, 2018, reviewed. LABORATORY DATA: Laboratories of October 06, 2018; glucose 126, sodium 131, potassium 3.6, chloride 91, carbon dioxide 29, BUN 28, creatinine 6.4. AST 13, ALT 7, and albumin 3.3. BNP 1660. ASSESSMENT AND PLAN: 1. Hypoxemia, initially felt to be some degree of volume overload. We are dialyzing this patient. We are attempting fluid removal only as tolerated due to the previous hypotensive episode. 2. Hypotension, much improved. Currently, blood pressure is within normal. Please note, he had a cardiac echo done recently which showed a normal EF. We also checked cortisol level with this patient. His baseline is noted to be 13. For that reason, we did not pursue the cortisol stimulation test. 3. Anemia. Start Epogen next week. Agree with current management. Job ID: [id number]
[2018-10-07 05:15] LABS: ALT (SGPT) Less than 7 U/L (8-55); AST (SGOT) 13 U/L (5-34); Albumin 3.3 g/dL (3.5-5.0); Alkaline Phosphatase 70 U/L (40-150); Anion Gap 11 mmol/L (10-20); BUN (Urea Nitrogen) 13 mg/dL (8.4-25.7); Bilirubin, Total 0.6 mg/dL (0.2-1.2); Calc. Creatinine Clearance 24 mL/min (70-130); Calcium 8.4 mg/dL (7.8-10.44); Carbon Dioxide 31 mmol/L (22-29); Chloride 97 mmol/L (98-107); Estimated GFR-MDRD 19; Glucose 109 mg/dL (70-105); Phosphorus 3.4 mg/dL (2.3-4.7); Potassium 3.9 mmol/L (3.5-5.1); Protein, Total 7.3 g/dL (6.0-8.3); Sodium 135 mmol/L (136-145)
[2018-10-07 05:44] LABS: Band 2 % (5-11); Eosinophils 3 % (0-10); Hemoglobin 10.4 g/dL (14.0-18.0); Lymphocytes 18 % (21-51); MDiff Complete? YES; Mean Corpuscular HGB CONC 32.4 g/dL (32.0-36.0); Mean Corpuscular Volume 86.3 fL (78.0-98.0); Mean Platelet Volume 8.8 fL (7.4-10.4); Monocytes 22 % (0-10); Neutrophil 55 % (42-75); Platelet Count 210 thou/uL (130-400); RBC Distribution Width 17.3 % (11.5-14.5); Red Blood Cell (RBC) Count 3.72 mill/uL (4.70-6.10); White Blood Cell (WBC) Count 3.3 thou/uL (4.8-10.8)
[2018-10-07] MEDS: Famotidine 20 MG TAB PO SCH (08:41)
[2018-10-07] MEDS: Folic Acid/Vit B Comp W-C PO SCH (08:41)
--- NOTE | 2018-10-07 09:19 | PDOC.PN ---
- Subjective Encounter Start Date: 10/07/18 Encounter Start Time: 08:00 Patient seen and examined. No new complaints. No overnight events - Objective Resuscitation Status - Order Detail: 10/06/18 09:14 Resuscitation Status Routine Resuscitation Status: FULL: Full Resuscitation MAR Reviewed: Yes Vital Signs & Weight: Vital Signs (12 hours) Temp Pulse Resp BP BP BP BP 10/07/18 07:55 98.1 F 63 16 145/65 H 140/65 140/64 10/07/18 03:12 99.6 F 67 16 127/61 10/06/18 23:15 98.7 F 65 16 126/61 Pulse Ox 10/07/18 07:55 95 10/07/18 03:12 94 L 10/06/18 23:15 95 Weight Weight 185 lb 3.2 oz I&O: 10/06/18 10/07/18 10/08/18 06:59 06:59 06:59 Intake Total 830 Output Total 1250 Balance -420 Result Diagrams: 10/07/18 03:58 10/07/18 03:58 Additional Labs: Accuchecks 10/06/18 10/06/18 10/06/18 20:33 16:43 11:10 POC Glucose 146 H 81 99 EKG Reviewed by me: Yes Phys Exam - Physical Examination Constitutional: NAD HEENT: PERRLA, moist MMs, sclera anicteric Neck: no JVD, supple Respiratory: no wheezing, no rales, no rhonchi Cardiovascular: RRR, no significant murmur, no rub Gastrointestinal: soft, non-tender, no distention, positive bowel sounds Musculoskeletal: no edema, pulses present Neurological: non-focal, normal sensation Lymphatic: no nodes Psychiatric: normal affect, A&O x 3 Skin: no rash, normal turgor Dx/Plan (1) Hypotension due to drugs Status: Acute (2) Anemia of renal disease Code(s): D63.1 - ANEMIA IN CHRONIC KIDNEY DISEASE Status: Chronic (3) Chronic hepatitis C Code(s): B18.2 - CHRONIC VIRAL HEPATITIS C Status: Chronic Qualifiers: Comment: stable (4) DM type 2 (diabetes mellitus, type 2) Status: Chronic (5) ESRD (end stage renal disease) on dialysis Code(s): N18.6 - END STAGE RENAL DISEASE; Z99.2 - DEPENDENCE ON RENAL DIALYSIS Status: Chronic Comment: dialysis per nephrology (6) Gout Code(s): M10.9 - GOUT, UNSPECIFIED Status: Chronic Qualifiers: Comment: stable (7) Hypertension Code(s): I10 - ESSENTIAL (PRIMARY) HYPERTENSION Status: Chronic Qualifiers: Comment: Increase scheduled hydralazine to 50 mg PO TID yesterday, continue to monitor vital signs and titrate antihypertensives as needed (8) Secondary hyperparathyroidism of renal origin Code(s): N25.81 - SECONDARY HYPERPARATHYROIDISM OF RENAL ORIGIN Status: Chronic - Plan cont current plan of care * medication adjusted * stable for discharge * medication reviewed as below * symptomatic treatment. Review of Systems - Review of Systems ENT: negative: Ear Pain, Ear Discharge, Nose Pain, Nose Discharge, Nose Congestion, Mouth Pain, Mouth Swelling, Throat Pain, Throat Swelling, Other Respiratory: negative: Cough, Dry, Shortness of Breath, Hemoptysis, SOB with Excertion, Pleuritic Pain, Sputum, Wheezing Cardiovascular: negative: chest pain, palpitations, orthopnea, paroxysmal nocturnal dyspnea, edema, light headedness, other Gastrointestinal: negative: Nausea, Vomiting, Abdominal Pain, Diarrhea, Constipation, Melena, Hematochezia, Other Genitourinary: negative: Dysuria, Frequency, Incontinence, Hematuria, Retention , Other Musculoskeletal: negative: Neck Pain, Shoulder Pain, Arm Pain, Back Pain, Hand Pain, Leg Pain, Foot Pain, Other Skin: negative: Rash, Lesions, Tobias, Bruising, Other - Medications/Allergies Allergies/Adverse Reactions: Allergies Allergy/AdvReac Type Severity Reaction Status Date / Time No Known Drug Allergies Allergy Verified 09/03/15 08:35 Medications: Current Medications Acetaminophen (Tylenol) 650 mg PO Q4H PRN PRN Reason: Headache/Fever/Mild Pain (1-3) Hydrocodone Bitart/Acetaminophen ([place] 5/325) 1 tab PO Q4H PRN PRN Reason: Moderate Pain (4-6) Artificial Tears (Tears Naturale) 2 drop EA EYE PRN PRN PRN Reason: Dry Eyes Bisacodyl (Dulcolax) 10 mg PO DAILYPRN PRN PRN Reason: Constipation Bisacodyl (Dulcolax) 10 mg [place] DAILYPRN PRN PRN Reason: Constipation Calcium Carbonate (Tums) 1,000 mg PO Q4H PRN PRN Reason: Heartburn or Indigestion Dextrose/Water (Dextrose 50%) 25 gm SLOW IVP PRN PRN PRN Reason: Hypoglycemia Famotidine (Pepcid) 20 mg PO DAILY [facility] Last Admin: 10/07/18 08:41 Dose: 20 mg Glucagon (Glucagon) 1 mg IM PRN PRN PRN Reason: Hypoglycemia Guaifenesin (Robitussin Sf) 200 mg PO Q4H PRN PRN Reason: Cough Hydralazine HCl (Apresoline) 10 mg SLOW IVP Q4H PRN PRN Reason: SBP > 180 and HR < 70 Dextrose/Water (D5w) 1,000 mls @ 0 mls/hr IV .Q0M PRN PRN Reason: Hypoglycemia Insulin Human Lispro (Humalog) 0 units SC .MODERATE SLIDING SC PRN PRN Reason: Moderate Correctional Scale Insulin Human Lispro (Humalog) 0 units SC .BEDTIME SLIDING SC PRN PRN Reason: Bedtime Correctional Scale Loperamide HCl (Imodium) 2 mg PO PRN PRN PRN Reason: Diarrhea/Loose Stools Loratadine (Claritin) 10 mg PO DAILYPRN PRN PRN Reason: Sinus Symptoms Mineral Oil/White Petrolatum (Eucerin Cream) 0 gm TOP BIDPRN PRN PRN Reason: Dry Skin Ondansetron HCl (Zofran Odt) 4 mg PO Q6H PRN PRN Reason: Nausea/Vomiting Ondansetron HCl (Zofran) 4 mg IVP Q6H PRN PRN Reason: Nausea/Vomiting Senna/Docusate Sodium (Senokot S) 2 tab PO BID PRN PRN Reason: Constipation Sodium Chloride ([place] 0.65%) 0 ml EA NARE QIDPRN PRN PRN Reason: Nasal Congestion Throat Lozenges (Cepastat Lozenges) 1 temo PO Q2H PRN PRN Reason: Sore Throat Vitamin B Complex/Vit C/Folic Acid (Nephro-Mali Tablet) 1 tab PO DAILY [facility] Last Admin: 10/07/18 08:41 Dose: 1 tab
--- NOTE | 2018-10-07 10:31 | DIS ---
DATE OF ADMISSION: 10/06/2018 DATE OF DISCHARGE: 10/07/2018 PRIMARY CARE PHYSICIAN: [facility]. DISCHARGE DISPOSITION: Home. PRIMARY DISCHARGE DIAGNOSIS: Hypotension likely due to medication, resolved. SECONDARY DISCHARGE DIAGNOSES: Anemia of renal disease; secondary hyperparathyroidism of renal origin; end-stage renal disease, on hemodialysis; chronic hepatitis C; diabetes type 2; gout; hypertension. PRIMARY PROCEDURE/OPERATION: Maintenance hemodialysis. RADIOLOGICAL INVESTIGATION: Chest x-ray normal. SIGNIFICANT LABORATORY DATA: Hemoglobin 10.4, WBC 3.3, platelet 210. Sodium 135, creatinine 3.85, potassium 3.9. Liver enzymes normal. Albumin 3.3. Cardiac enzyme negative. ACTH stimulation test negative. DISCHARGE MEDICATIONS: The patient was not able to bring his home medication, but we have made adjustment from previous medication. Tylenol No. 3 one tablet b.i.d. p.r.n., allopurinol 300 mg p.o. daily, aspirin 81 mg p.o. daily, Nexium 40 mg daily, Lantus insulin 8 units subcu daily, fish oil one capsule daily, Lipitor 10 mg p.o. at bedtime, Coreg 25 mg p.o. b.i.d., ferrous sulfate 325 mg p.o. daily, hydralazine 25 mg p.o. b.i.d., Imdur 60 mg daily, MiraLAX 17 g p.o. daily. We advised this patient to start all this medication as tolerated if blood pressure permits and if blood pressure is more than 130/80. CONTRAINDICATION: None. CODE STATUS: Full code. INPATIENT SECOND OPERATOR: Dr. Sims. TEST RESULTS PENDING ON DISCHARGE: None. ALLERGIES: NO KNOWN DRUG ALLERGY. DISCHARGE PLAN: Post hospital, the patient is instructed to follow up with primary care physician in 1 week. The patient is advised to keep blood pressure diary, to see primary care physician. HOSPITAL COURSE: A 58-year-old male who was having generalized weakness. He was hypotensive. He was taking bunch of blood pressure medication that was contributing to his blood pressure low. He was not able to go for dialysis because of feeling weakness, and he came to emergency room. His blood pressure was low, but that improved with IV fluid. His orthostatic vitals were negative. We have made some adjustment in his blood pressure medication. We discontinued Procardia XL, hydralazine reduced to b.i.d., Coreg reduced to b.i.d., and Imdur also reduced to daily. The patient did not bring his home medication, so unable to verify his home medication. We advised necessary patient education about hypotension and monitoring blood pressure and followup with PCP. The patient is seen and examined at bedside today. Please see my progress note from today for further detail. Job ID: [id number]
[2018-10-07] MEDS ORDERED: hydrALAZINE 25 MG TAB PO SCH (23:45)
[2018-10-07] MEDS ORDERED: Carvedilol 25 MG TAB PO SCH (23:45)
[2018-10-08] MEDS: Folic Acid/Vit B Comp W-C PO SCH (08:47)
[2018-10-08] MEDS: Famotidine 20 MG TAB PO SCH (08:47)
--- NOTE | 2018-10-08 10:31 | PRG ---
DATE OF SERVICE: 10/08/2018 SUBJECTIVE: Mr. Quinn is a 58-year-old black male with ESRD, was admitted for generalized malaise. Workup has been negative. His cortisol was noted to be normal. This morning, he is feeling better. He is scheduled for a dialysis today. Our plan is fluid removal only as tolerated by the patient. No complaints of chest pain or shortness of breath. OBJECTIVE: VITAL SIGNS: Blood pressure 161/73, heart rate 68, respiratory rate 18, temperature 98.3, and pulse oximetry 94%. GENERAL: Awake, alert, comfortable, not in distress. SKIN: Adequate turgor. HEENT: He has a pinkish conjunctivae. Anicteric sclerae. NECK: No neck mass. No carotid bruits. No JVD. CHEST: No deformities. LUNGS: Decreased breath sounds. HEART: Normal sinus rhythm. No murmurs, gallops, or rubs. ABDOMEN: Globular, soft, nontender. No masses. EXTREMITIES: No edema. MEDICATIONS: Medications of October 08, 2018, reviewed. LABORATORY DATA: Laboratories of October 07, 2018, white count 3.3, hemoglobin 10.4. Sodium 135, potassium 3.9, chloride 97, carbon dioxide 31, BUN 13, creatinine 3.85, and albumin 3.3. ASSESSMENT AND PLAN: 1. End-stage renal disease, stable. We will continue current hemodialysis regimen. The patient will be scheduled for his regular Thursday, Thursday, and Thursday hemodialysis. We will attempt fluid removal as tolerated by the patient. We will remove between 1 and 1.2 L of fluid/dialysis. 2. Anemia, stable. 3. Generalized malaise, negative. Nonspecific etiology. Cortisol levels are normal. Agree with plan discharge after dialysis. Job ID: [id number]
--- NOTE | 2018-10-08 10:47 | PDOC.PN ---
- Subjective Encounter Start Date: 10/08/18 Encounter Start Time: 07:45 Patient seen and examined. No new complaints. No overnight events - Objective Resuscitation Status - Order Detail: 10/06/18 09:14 Resuscitation Status Routine Resuscitation Status: FULL: Full Resuscitation MAR Reviewed: Yes Vital Signs & Weight: Vital Signs (12 hours) Temp Pulse Resp BP Pulse Ox 10/08/18 07:50 98.3 F 68 18 161/73 H 94 L 10/08/18 03:15 99.3 F 74 18 161/72 H 93 L 10/07/18 23:20 99.4 F 67 16 173/72 H 94 L Weight Weight 185 lb 6.4 oz I&O: 10/07/18 10/08/18 10/09/18 06:59 06:59 06:59 Intake Total 830 1180 Output Total 1250 50 Balance -420 1130 Result Diagrams: 10/07/18 03:58 10/07/18 03:58 Additional Labs: Accuchecks 10/08/18 10/07/18 10/07/18 05:51 20:24 16:46 POC Glucose 90 110 81 10/07/18 10:22 POC Glucose 125 H EKG Reviewed by me: Yes Phys Exam - Physical Examination Constitutional: NAD HEENT: PERRLA, moist MMs, sclera anicteric Neck: no JVD, supple Respiratory: no wheezing, no rales, no rhonchi Cardiovascular: RRR, no significant murmur, no rub Gastrointestinal: soft, non-tender, no distention, positive bowel sounds Musculoskeletal: no edema, pulses present Neurological: non-focal, normal sensation Psychiatric: normal affect, A&O x 3 Skin: no rash, normal turgor Dx/Plan (1) Hypotension due to drugs Status: Acute (2) Anemia of renal disease Code(s): D63.1 - ANEMIA IN CHRONIC KIDNEY DISEASE Status: Chronic (3) Chronic hepatitis C Code(s): B18.2 - CHRONIC VIRAL HEPATITIS C Status: Chronic Qualifiers: Comment: stable (4) DM type 2 (diabetes mellitus, type 2) Status: Chronic (5) ESRD (end stage renal disease) on dialysis Code(s): N18.6 - END STAGE RENAL DISEASE; Z99.2 - DEPENDENCE ON RENAL DIALYSIS Status: Chronic Comment: dialysis per nephrology (6) Gout Code(s): M10.9 - GOUT, UNSPECIFIED Status: Chronic Qualifiers: Comment: stable (7) Hypertension Code(s): I10 - ESSENTIAL (PRIMARY) HYPERTENSION Status: Chronic Qualifiers: Comment: Increase scheduled hydralazine to 50 mg PO TID yesterday, continue to monitor vital signs and titrate antihypertensives as needed (8) Secondary hyperparathyroidism of renal origin Code(s): N25.81 - SECONDARY HYPERPARATHYROIDISM OF RENAL ORIGIN Status: Chronic - Plan cont current plan of care * medication reviewed as below * symptomatic treatment * spoke with nephrology * will discharge after HD * stable. Review of Systems - Review of Systems ENT: negative: Ear Pain, Ear Discharge, Nose Pain, Nose Discharge, Nose Congestion, Mouth Pain, Mouth Swelling, Throat Pain, Throat Swelling, Other Respiratory: negative: Cough, Dry, Shortness of Breath, Hemoptysis, SOB with Excertion, Pleuritic Pain, Sputum, Wheezing Cardiovascular: negative: chest pain, palpitations, orthopnea, paroxysmal nocturnal dyspnea, edema, light headedness, other Gastrointestinal: negative: Nausea, Vomiting, Abdominal Pain, Diarrhea, Constipation, Melena, Hematochezia, Other Genitourinary: negative: Dysuria, Frequency, Incontinence, Hematuria, Retention , Other Musculoskeletal: negative: Neck Pain, Shoulder Pain, Arm Pain, Back Pain, Hand Pain, Leg Pain, Foot Pain, Other - Medications/Allergies Allergies/Adverse Reactions: Allergies Allergy/AdvReac Type Severity Reaction Status Date / Time No Known Drug Allergies Allergy Verified 09/03/15 08:35 Medications: Current Medications Acetaminophen (Tylenol) 650 mg PO Q4H PRN PRN Reason: Headache/Fever/Mild Pain (1-3) Hydrocodone Bitart/Acetaminophen ([place] 5/325) 1 tab PO Q4H PRN PRN Reason: Moderate Pain (4-6) Artificial Tears (Tears Naturale) 2 drop EA EYE PRN PRN PRN Reason: Dry Eyes Bisacodyl (Dulcolax) 10 mg PO DAILYPRN PRN PRN Reason: Constipation Bisacodyl (Dulcolax) 10 mg [place] DAILYPRN PRN PRN Reason: Constipation Calcium Carbonate (Tums) 1,000 mg PO Q4H PRN PRN Reason: Heartburn or Indigestion Dextrose/Water (Dextrose 50%) 25 gm SLOW IVP PRN PRN PRN Reason: Hypoglycemia Famotidine (Pepcid) 20 mg PO DAILY [facility] Last Admin: 10/08/18 08:47 Dose: 20 mg Glucagon (Glucagon) 1 mg IM PRN PRN PRN Reason: Hypoglycemia Guaifenesin (Robitussin Sf) 200 mg PO Q4H PRN PRN Reason: Cough Hydralazine HCl (Apresoline) 10 mg SLOW IVP Q4H PRN PRN Reason: SBP > 180 and HR < 70 Dextrose/Water (D5w) 1,000 mls @ 0 mls/hr IV .Q0M PRN PRN Reason: Hypoglycemia Insulin Human Lispro (Humalog) 0 units SC .MODERATE SLIDING SC PRN PRN Reason: Moderate Correctional Scale Insulin Human Lispro (Humalog) 0 units SC .BEDTIME SLIDING SC PRN PRN Reason: Bedtime Correctional Scale Loperamide HCl (Imodium) 2 mg PO PRN PRN PRN Reason: Diarrhea/Loose Stools Loratadine (Claritin) 10 mg PO DAILYPRN PRN PRN Reason: Sinus Symptoms Mineral Oil/White Petrolatum (Eucerin Cream) 0 gm TOP BIDPRN PRN PRN Reason: Dry Skin Ondansetron HCl (Zofran Odt) 4 mg PO Q6H PRN PRN Reason: Nausea/Vomiting Ondansetron HCl (Zofran) 4 mg IVP Q6H PRN PRN Reason: Nausea/Vomiting Senna/Docusate Sodium (Senokot S) 2 tab PO BID PRN PRN Reason: Constipation Sodium Chloride ([place] Nasal [place] 0.65%) 0 ml EA NARE QIDPRN PRN PRN Reason: Nasal Congestion Throat Lozenges (Cepastat Lozenges) 1 temo PO Q2H PRN PRN Reason: Sore Throat Vitamin B Complex/Vit C/Folic Acid (Nephro-Mali Tablet) 1 tab PO DAILY [facility] Last Admin: 10/08/18 08:47 Dose: 1 tab
--- NOTE | 2018-10-08 10:59 | DIS ---
DATE OF ADMISSION: 10/06/2018 DATE OF DISCHARGE: 10/08/2018 ADDENDUM: This patient was planned for discharge yesterday. Please see my discharge summary dictated yesterday. No change happened, but Dr. Sims wanted to keep him one more day for dialysis. The patient is getting hemodialysis this morning, and subsequently, he will be discharged to home. Please see my progress note for further details. Job ID: [id number]
[2018-10-08 13:39] LABS: HBSAB Concentration 1.01 mIU/mL; HBSAg Index 0.26 S/CO (0-0.99); Hep B Surf AB Non-Reactive (NonReactive); Hep B Surf Ag Non-Reactive S/CO (NonReactive)
[2018-10-08 16:06] VITALS: BP 156/50; TEMP 98.2
--- NOTE | 2018-10-09 13:47 | EKG ---
Test Reason : Blood Pressure : / mmHG Vent. Rate : 063 BPM Atrial Rate : 063 BPM P-R Int : 216 ms QRS Dur : 086 ms QT Int : 474 ms P-R-T Axes : 033 034 081 degrees QTc Int : 485 ms Sinus rhythm with 1st degree A-V block Nonspecific T wave abnormality Prolonged QT Abnormal ECG Confirmed by TANNER EPSTEIN DO ([id number]), publications editor KAYY PAYTON ([id number]) on 10/09/2018 1:47:27 PM Referred By: Confirmed By:TANNER EPSTEIN DO
== END 2018-10-08 17:35 | disposition home or self-care (01) ==
LOC: ERS 05:49 → 2SW 09:47
PROVIDERS: ADMIT Internal Medicine; ATTEND Internal Medicine
DX: I95.9 Hypotension, unspecified (principal); I13.2 Hypertensive heart and chronic kidney disease with heart failure and with stage 5 chronic kidney disease, or end stage renal disease; E11.22 Type 2 diabetes mellitus with diabetic chronic kidney disease; N18.6 End stage renal disease; I50.32 Chronic diastolic (congestive) heart failure; D63.1 Anemia in chronic kidney disease; E78.5 Hyperlipidemia, unspecified; M10.9 Gout, unspecified; B18.2 Chronic viral hepatitis C; K21.9 Gastro-esophageal reflux disease without esophagitis; D72.819 Decreased white blood cell count, unspecified; R09.02 Hypoxemia; N25.81 Secondary hyperparathyroidism of renal origin; Z99.2 Dependence on renal dialysis; Z79.4 Long term (current) use of insulin; Z79.82 Long term (current) use of aspirin; Z79.899 Other long term (current) drug therapy
CPT/HCPCS: 71045; 80053 ×2; 80400; 82533; 82962 ×3; 83605; 83880; 84100; 84484 ×2; 85025 ×2; 86706; 87340; 93005; 96361; 96374; 99285; G0378 ×3; 36415; 36416; 90935; 96360; G0257; J0834

== ENCOUNTER 2018-10-18 05:27 | Emergency (ER) | payer MEDICARE, MEDICAID ==
[2018-10-18 06:05] LABS: Hemoglobin 10.1 g/dL (14.0-18.0); Mean Corpuscular HGB CONC 32.3 g/dL (32.0-36.0); Mean Corpuscular Hemoglobin 26.6 pg (27.0-31.0); Mean Corpuscular Volume 82.4 fL (78.0-98.0); Mean Platelet Volume 7.9 fL (7.4-10.4); Platelet Count 338 thou/uL (130-400); RBC Distribution Width 17.6 % (11.5-14.5); White Blood Cell (WBC) Count 4.2 thou/uL (4.8-10.8)
[2018-10-18 06:13] LABS: ALT (SGPT) 7 U/L (8-55); AST (SGOT) 17 U/L (5-34); Albumin 3.4 g/dL (3.5-5.0); Alkaline Phosphatase 70 U/L (40-150); Anion Gap 14 mmol/L (10-20); BUN (Urea Nitrogen) 37 mg/dL (8.4-25.7); Bilirubin, Total 0.5 mg/dL (0.2-1.2); Calc. Creatinine Clearance 0 mL/min (70-130); Calcium 8.7 mg/dL (7.8-10.44); Carbon Dioxide 28 mmol/L (22-29); Chloride 93 mmol/L (98-107); Estimated GFR-MDRD 15; Globulin 4.1 g/dL (2.4-3.5); Glucose 169 mg/dL (70-105); Potassium 3.5 mmol/L (3.5-5.1); Protein, Total 7.5 g/dL (6.0-8.3); Sodium 131 mmol/L (136-145)
[2018-10-18 06:22] LABS: Hypochromia SLIGHT = 6-15 cells (100X) (0-5/hpf); Lymphocytes 14 % (21-51); MDiff Complete? YES; Monocytes 14 % (0-10); Neutrophil 72 % (42-75); PLT Morphology Comment Appears Adequate
== END 2018-10-18 11:34 | disposition home or self-care (01) ==
LOC: ERS 05:27
DX: R53.1 Weakness (principal); K21.9 Gastro-esophageal reflux disease without esophagitis; D50.9 Iron deficiency anemia, unspecified; I11.0 Hypertensive heart disease with heart failure; I50.9 Heart failure, unspecified; E11.9 Type 2 diabetes mellitus without complications; E78.00 Pure hypercholesterolemia, unspecified; M10.9 Gout, unspecified; Z79.899 Other long term (current) drug therapy
CPT/HCPCS: 36415; 80053; 84484; 85025; 93005; 96360

== ENCOUNTER 2018-10-28 10:45 | Outpatient (CLI) | payer MEDICARE, MEDICAID ==
--- NOTE | 2018-10-28 12:00 | RAD ---
CHEST 2 VIEWS: HISTORY: Wheezing. COMPARISON: Radiograph 10/06/2018. FINDINGS: Heart size is mildly enlarged. Mild pulmonary venous congestion. No pneumothorax. Small left effus ion. No acute osseous abnormality. Right upper quadrant surgical clips. IMPRESSION: Cardiomegaly and mild pulmonary venous congestion and small effusions. POS: H
== END 2018-10-28 10:46 | disposition home or self-care (01) ==
LOC: BICRAD 10:45
PROVIDERS: ATTEND Family Medicine
DX: R09.89 Other specified symptoms and signs involving the circulatory and respiratory systems (principal); I51.7 Cardiomegaly; J90 Pleural effusion, not elsewhere classified
CPT/HCPCS: 71046

== ENCOUNTER 2018-11-04 20:14 | Emergency (ER) | payer MEDICARE, MEDICAID ==
[2018-11-04 21:08] LABS: #Eosinphils 0.1 thou/uL (0.0-0.7); #Lymphocytes 0.9 thou/uL (1.20-3.40); #Monocytes 0.8 thou/uL (0.11-0.59); #Neutrophils 3.9 thou/uL (1.40-6.50); %Basophils 0.2 % (0.0-1.0); %Eosinophils 2.3 % (0.0-10.0); %Lymphocytes 15.9 % (21.0-51.0); %Monocytes 13.9 % (0.0-10.0); %Neutrophils 67.8 % (42.0-75.0); Hemoglobin 11.3 g/dL (14.0-18.0); Mean Corpuscular Hemoglobin 27.2 pg (27.0-31.0); Mean Corpuscular Volume 85.2 fL (78.0-98.0); Platelet Count 151 thou/uL (130-400); RBC Distribution Width 21.3 % (11.5-14.5); Red Blood Cell (RBC) Count 4.16 mill/uL (4.70-6.10); White Blood Cell (WBC) Count 5.7 thou/uL (4.8-10.8)
[2018-11-04 21:15] LABS: INR-International Normal Ratio 1.3; PTT 32.3 SEC (22.9-36.1); Prothrombin Time 15.9 SEC (12.0-14.7)
[2018-11-04 21:29] LABS: ALT (SGPT) 13 U/L (8-55); AST (SGOT) 16 U/L (5-34); Albumin 3.4 g/dL (3.5-5.0); Alkaline Phosphatase 69 U/L (40-150); Anion Gap 13 mmol/L (10-20); BUN (Urea Nitrogen) 22 mg/dL (8.4-25.7); Bilirubin, Total 1.6 mg/dL (0.2-1.2); CK (CPK) 73 U/L (30-200); Calc. Creatinine Clearance 0 mL/min (70-130); Calcium 8.7 mg/dL (7.8-10.44); Carbon Dioxide 31 mmol/L (22-29); Chloride 96 mmol/L (98-107); Estimated GFR-MDRD 25; Globulin 3.8 g/dL (2.4-3.5); Glucose 107 mg/dL (70-105); Magnesium 1.8 mg/dL (1.6-2.6); Potassium 3.1 mmol/L (3.5-5.1); Protein, Total 7.2 g/dL (6.0-8.3); Sodium 137 mmol/L (136-145)
--- NOTE | 2018-11-04 22:34 | CT ---
BRAIN CT WITHOUT IV CONTRAST: 11/04/18 HISTORY: 58-year-old male with history of injury from a fall and weakness. COMPARISON: 12/22/14. The head is rotated to the right and cocked to the side with considerable side to side asymmetry. The re is no focal mass or midline. No intra or extra-axial hemorrhage. Small punctate bilateral basal la cunar infarcts. Stable appearance from prior study. IMPRESSION: Atrophy and chronic white matter ischemic change with small bilateral basal ganglia lacunar infarcts. No mass or bleed or other acute process. Stable from prior study. POS: GIAN
[2018-11-04] MEDS ORDERED: Potassium Chloride 20 MEQ TAB ONE (22:36)
[2018-11-05] MEDS ORDERED: hydrALAZINE 25 MG TAB ONE (02:06)
[2018-11-05] MEDS ORDERED: Carvedilol 25 MG TAB PO SCH (02:15)
== END 2018-11-05 02:29 ==
LOC: ERS 20:14
DX: Z04.3 Encounter for examination and observation following other accident (principal); K21.9 Gastro-esophageal reflux disease without esophagitis; D50.9 Iron deficiency anemia, unspecified; I11.0 Hypertensive heart disease with heart failure; I50.9 Heart failure, unspecified; E11.9 Type 2 diabetes mellitus without complications; E78.00 Pure hypercholesterolemia, unspecified; M10.9 Gout, unspecified; Z79.899 Other long term (current) drug therapy; W19.XXXA Unspecified fall, initial encounter
CPT/HCPCS: 36415; 70450; 80053; 82550; 82553; 83605; 83735; 84484; 85025; 85610; 85730; 93005

== ENCOUNTER 2018-12-08 13:26 | Inpatient (IN) | payer MEDICARE, MEDICAID ==
[2018-12-08] MEDS ORDERED: hydrALAZINE 25 MG TAB ONE (14:13)
[2018-12-08] MEDS ORDERED: cloNIDine 0.1 MG TAB ONE (14:13)
--- NOTE | 2018-12-08 14:21 | RAD ---
CHEST 1 VIEW: Date: 12/08/18 INDICATION: Found unresponsive by software verification engineer. COMPARISON: Prior exam dated 10/28/18. FINDINGS: Mild cardiomegaly is stable. Mild pulmonary vascular congestion is present. No pleural effusion or pn eumothorax is evident. No acute osseous abnormality is evident. IMPRESSION: Cardiomegaly with mild pulmonary vascular congestion. POS: CET
[2018-12-08 14:23] LABS: Hemoglobin 13.2 g/dL (14.0-18.0); Mean Corpuscular HGB CONC 31.5 g/dL (32.0-36.0); Mean Corpuscular Hemoglobin 25.8 pg (27.0-31.0); Mean Platelet Volume 9.9 fL (7.4-10.4); Platelet Count 283 thou/uL (130-400); RBC Distribution Width 20.8 % (11.5-14.5); Red Blood Cell (RBC) Count 5.11 mill/uL (4.70-6.10)
[2018-12-08] MEDS ORDERED: NIFEdipine XL 30 MG TAB PO SCH (14:30)
[2018-12-08 14:43] LABS: ALT (SGPT) 10 U/L (8-55); AST (SGOT) 31 U/L (5-34); Alkaline Phosphatase 91 U/L (40-150); Anion Gap 27 mmol/L (10-20); BUN (Urea Nitrogen) 60 mg/dL (8.4-25.7); Bilirubin, Total 2.2 mg/dL (0.2-1.2); Calc. Creatinine Clearance 0 mL/min (70-130); Carbon Dioxide 19 mmol/L (22-29); Chloride 101 mmol/L (98-107); Estimated GFR-MDRD 11; Globulin 4.8 g/dL (2.4-3.5); Glucose 117 mg/dL (70-105); Potassium 4.3 mmol/L (3.5-5.1); Protein, Total 8.8 g/dL (6.0-8.3); Sodium 143 mmol/L (136-145)
[2018-12-08 14:46] LABS: Anisocytosis SLIGHT = 6-15 cells (100X) (0-5/hpf); Hypochromia SLIGHT = 6-15 cells (100X) (0-5/hpf); Lymphocytes 5 % (21-51); MDiff Complete? YES; Monocytes 4 % (0-10); Neutrophil 91 % (42-75); Platelet Morphology Comment Appears Adequate; Polychromasia SLIGHT = 2-3 cells (100X) (0-2/hpf); White Blood Cell (WBC) Count 10.4 thou/uL (4.8-10.8)
--- NOTE | 2018-12-08 15:51 | CT ---
CT BRAIN NONCONTRAST: DATE: 12/08/18 at 3:28 p.m. HISTORY: 58-year-old male with altered mental status, status post fall with possible trauma to the head. COMPARISON: 9 FINDINGS: There is moderate dilation of the lateral and third ventricles, and mild dilation of the fourth ventr icle. The ventriculomegaly is slightly out of proportion to the brain parenchymal volume loss. There are confluent, somewhat severe hypodensities symmetrically throughout the periventricular white matte r, extending into the deep white matter and encroaching upon the subcortical white matter. At least m ost of this represents advanced chronic ischemic white matter changes due to microvascular atheroscle rosis. It is possible some of this could represent transependymal migration of CSF. There is a tiny o ld lacunar infarction in the anterior limb of the right internal capsule. There is no mass effect, mi dline shift, or extra-axial fluid collection. No acute intra-axial or extra-axial hemorrhage. No calv arial fracture. No interval change overall. IMPRESSION: 1. No acute intracranial findings. 2. Severe chronic ischemic white matter changes. 3. Ventriculomegaly. This is probably on the basis of involutional changes of the brain. Alterna tively, there is a small possibility that this could represent normal pressure hydrocephalus. Clinica l correlation is recommended (is there dementia, urinary incontinence, and/or gait apraxia?). 4. No interval change compared to 11/04/18. JUAN Bunn POS: [facility]
[2018-12-08] MEDS ORDERED: Ondansetron PF 4 MG/2 ML Vial IVP PRN ×2 (20:09→20:17)
[2018-12-08] MEDS ORDERED: Ondansetron ODT 4 MG TAB SL PRN (20:09)
[2018-12-08] MEDS ORDERED: Acetaminophen 325 MG TAB PO PRN (20:09)
[2018-12-08] MEDS ORDERED: Dextrose 5% in Water 1,000 ML IV PRN (20:17)
[2018-12-08] MEDS ORDERED: Acetaminophen 650 MG Suppository PR PRN (20:17)
[2018-12-08] MEDS ORDERED: Ondansetron ODT 4 MG TAB PO PRN (20:17)
[2018-12-08] MEDS ORDERED: Senokot S 8.6-50 MG TAB PO PRN (20:17)
[2018-12-08] MEDS ORDERED: Labetalol HCl 100 MG/20 ML VIAL SLOW IVP PRN (20:17)
[2018-12-08] MEDS ORDERED: HumaLOG 300 UNITS/3 ML VIAL SC PRN ×2 (20:17)
[2018-12-08] MEDS ORDERED: Dextrose 50% Abboject 50 ML SYRINGE SLOW IVP PRN (20:17)
[2018-12-08] MEDS: Carvedilol 25 MG TAB PO SCH (21:17)
[2018-12-08] MEDS: Atorvastatin Calcium 10 MG TAB PO SCH (21:17)
[2018-12-08] MEDS: hydrALAZINE 25 MG TAB PO SCH (21:17)
--- NOTE | 2018-12-08 23:23 | CON ---
DATE OF CONSULTATION: HISTORY OF PRESENT ILLNESS: Mr. Quinn is a 58-year-old black male, who is a dialysis patient - ESRD on maintenance hemodialysis and was found unresponsive at home. According to the patient, he has been progressively weak for the last several days. Of note, he lives alone. His p.o. intake is much decreased. Initial evaluation showed a chest x-ray with increased lung markings. In addition, a CT scan of the brain was done and no acute intracranial abnormalities were noted. So far, the etiology of his syncopal episode is unclear. We are now being consulted for his maintenance hemodialysis. REVIEW OF SYSTEMS: Positive for syncopal episode, decreased appetite, and occasional nausea. No abdominal pain. No chest pain. No shortness of breath. No headache. No diplopia. No fever or chills. No dysuria. No urinary frequency. No hematochezia. No melena. No hematemesis. HOME MEDICATIONS: Include; 1. Hydralazine 25 mg p.o. b.i.d. 2. MiraLAX 17 g daily. 3. Fish oil 1000 mg p.o. b.i.d. 4. Imdur 60 mg daily. 5. Insulin glargine 8 units subcu q.a.m. 6. Ferrous sulfate 325 mg q.a.m. 7. Nexium 40 mg daily. 8. Carvedilol 25 mg p.o. b.i.d. 9. Atorvastatin 10 mg at bedtime. 10. Aspirin 81 mg tablet once a day. 11. Allopurinol 300 mg daily. PAST MEDICAL HISTORY: 1. ESRD secondary to diabetic nephropathy, currently on maintenance hemodialysis. 2. Type 2 diabetes mellitus. 3. Coronary artery disease. 4. Status post CHF. 5. Depression. 6. GERD. 7. Hypertension. 8. Gout. 9. Hyperlipidemia. 10. Chronic anemia. PAST SURGICAL HISTORY: Status post cardiac cath with coronary stent placement, status post colonoscopy, status post eye surgery, status post cuffed dialysis catheter placement, status post AV fistula. SOCIAL HISTORY: The patient lives in [place]. He currently lives alone. He is a retired worker for a meat shop. He is originally from [place]. He has 6 children. He is . Education, GED. Smoked for 20 years 1 pack a day. Currently, no history of smoking or alcohol. Status post multiple blood transfusion. No alcohol use. ALLERGIES: NONE. TRAUMA: None. IMMUNIZATION: Up-to-date. HOSPITALIZATIONS: Please see past medical history. FAMILY HISTORY: No family history of ESRD. PHYSICAL EXAMINATION: VITAL SIGNS: Blood pressure 170/70 with heart rate of 70, respiratory rate 14, and temperature 98.2. GENERAL: The patient is awake, lethargic, not in overt distress. SKIN: Adequate turgor. HEENT: He has a pinkish conjunctivae. Anicteric sclerae. No neck mass. No carotid bruits. No JVD. CHEST: No deformities. LUNGS: Clear breath sounds. No wheezing. No crackles. HEART: Normal sinus rhythm. No murmurs, gallops, or rubs. ABDOMEN: Globular, soft, and nontender. No masses. EXTREMITIES: No edema. No deformities. LABORATORY DATA: On 12/08/2018; white count 10.6, hemoglobin 13.2. Sodium 143, potassium 4.3, chloride 101, carbon dioxide 19, BUN 60, creatinine 6.18, glucose 117, and calcium 9. AST 31, ALT 10, and albumin 4.0. IMAGING STUDIES: Chest x-ray, mild CHF. CT scan of the brain, negative. ASSESSMENT AND PLAN: 1. End-stage renal disease, stable. We will continue current three times a week hemodialysis. My plan is to schedule for dialysis tomorrow with fluid removal only as tolerated. 2. Near syncopal episode. Unclear etiologies. This could be simply from volume depletion. The patient has been having decreased p.o. and fluid intake for the last several days. 3. Anemia. No indication for any Epogen. Continue Epogen regimen as needed. 4. Overall agree with current management. Job ID: [id number]
--- NOTE | 2018-12-08 23:32 | HP ---
PRIMARY CARE PHYSICIAN: [facility]. CHIEF COMPLAINT: Fall from standing and confusion. HISTORY OF PRESENT ILLNESS: This is a 58-year-old male with a known history of end-stage renal disease, who has not been to his dialysis for 2 weeks. He was found down on the floor in his bathroom by his textile finisher. Dry feces were noted on him at that time, unknown how long he had been down and EMS was called. His blood pressure was found to be in the 200s. He was brought into the emergency room. The patient has been confused in the emergency room. He is awake and talking and only knows that he is at [facility] Emergency [facility], but does not know the day or time. Does not know the year. Does not know why he is here and cannot give any recent history. Denies any active complaints. PAST MEDICAL HISTORY: All medical history is taken from the ER chart and the computer chart as the patient is unable to give us any information at this time. 1. End-stage renal disease, on hemodialysis, started in 2017. 2. Hypertension with recent admission for hypotension and blood pressure medicines have been weaned down some. 3. Dyslipidemia. 4. Diabetes mellitus type 2. 5. Chronic diastolic congestive heart failure. 6. Chronic hepatitis C. 7. Gout. PAST SURGICAL HISTORY: 1. Cardiac catheterization with angioplasty. 2. Cataract surgery. 3. Hemodialysis access with a left upper arm AV fistula. PAST PSYCHIATRIC HISTORY: None. SOCIAL HISTORY: The patient lives alone, is typically independent for daily activities of living. Per chart, no history of tobacco, alcohol, or illicit drug use. Quit smoking 30 years ago. FAMILY HISTORY: Hypertension, diabetes, and heart disease in several family members. ALLERGIES: NO KNOWN DRUG ALLERGIES. CURRENT MEDICATIONS: Uncertain what he has been taking recently; from his discharge medications at his last hospitalization; 1. Allopurinol 300 mg daily. 2. Aspirin 81 mg daily. 3. Nexium 40 mg daily. 4. Lantus 8 units subcu daily. 5. Fish oil one capsule daily. 6. Lipitor 10 mg at bedtime. 7. Coreg 25 mg twice a day. 8. Ferrous sulfate 325 mg daily. 9. Hydralazine 25 mg twice a day. 10. Imdur 60 mg daily. 11. MiraLAX 17 g daily. 12. Tylenol No. 3 as needed for pain. REVIEW OF SYSTEMS: Unable to obtain secondary to the patient's altered mental status. He says no to questions about all review of systems. PHYSICAL EXAMINATION: VITAL SIGNS: Blood pressure 199/93, pulse 78, respirations 20, temperature 98.8, O2 saturation 93% on room air. GENERAL: This is a well-developed, well-nourished male, in no acute distress. HEENT: Pupils equal, round, and reactive to light. Oropharynx is clear without lesions, erythema, or exudate. He does have dentures in place. NECK: Supple. No lymphadenopathy. No thyroid nodules or enlargement. He does have significant JVD. HEART: Regular rate and rhythm. No murmurs, rubs, or gallops. LUNGS: Clear to auscultation bilaterally. No wheezes, crackles, or rhonchi. ABDOMEN: Soft. Mild tenderness to palpation diffusely across the lower abdomen without any guarding. No rebound tenderness. No hepatosplenomegaly or other masses. EXTREMITIES: No clubbing, cyanosis, or edema. He does have thrill in the AV fistula on his left upper extremity. SKIN: No rashes or other lesions noted. NEUROLOGIC: The patient is moving both sides equally, has no facial droop. Strength is intact in upper and lower extremities. Reflexes equal bilaterally. PSYCHIATRIC: Alert, oriented to person and to place, not to time or situation. LABORATORY DATA: CBC with a hemoglobin of 13 and hematocrit of 41; the rest was normal. Complete metabolic panel notable for carbon dioxide of 19, anion gap 27, BUN of 60, creatinine of 6.18, glucose of 117, total bilirubin of 2.2; the rest was normal. C-reactive protein was elevated at 9.9, creatine kinase was normal at 90. CT of the brain done in the emergency room shows no acute intracranial findings. There are some severe chronic ischemic white matter changes though and some ventriculomegaly likely due to involution of the brain. A rare possibility this could be normal-pressure hydrocephalus. No interval changes from previous CT scans. Chest x-ray, I did review the chest x-ray done in the emergency room along with the radiologist report. This does show some cardiomegaly and mild vascular congestion. No romel pulmonary edema. EKG, the patient has normal sinus rhythm in EKG. He does have some evidence of mild right ventricular conduction delay and evidence of left ventricular hypertrophy. No ST-segment changes. No T-wave peaking or inversions. ASSESSMENT: 1. Altered mental status, likely secondary to uremia. The patient does not have any other abnormalities on exam that would explain this. No evidence at this time of acute stroke. There is an outside possibility that he has some hypertensive emergency with hypertensive encephalopathy. The patient is being put in the hospital for dialysis, plans for dialysis tomorrow morning and we will have to see if his mental status clears with dialysis. 2. Hypertensive emergency. The patient's blood pressure has been running in the low 200s systolic. We have given him several of his home blood pressure medications and still wait for pharmacy to send the other ones down to help bring this down. He has had clonidine and hydralazine and his Coreg, still waiting for the nifedipine from the pharmacy. I believe he has also had isosorbide. If the patient's blood pressure remains up and we are unable to control it, he may end up needing to be put in the IMCU with a nitroglycerin drip in order to keep this under control, though he can get his dialysis. 3. Diabetes mellitus type 2. For now, we will just check his fingerstick blood sugars q.a.c. and at bedtime. We will reinstitute his insulin once he starts eating. 4. Dyslipidemia. We will resume the patient's statin. 5. GI prophylaxis. We will resume his proton pump inhibitor. 6. Deep venous thrombosis prophylaxis. Put patient on SCDs while in bed. CODE STATUS: The patient is unable to have any sort of discussion about code status at this time due to his altered mental status. Per the chart, patient's next of kin would be his , Tonya Quinn, however, she does not live with him. She lives in [place]. There is some concern about his living situation. He may end up needing to go to a half-way eventually. Job ID: [id number]
[2018-12-09] MEDS: Ferrous Sulfate 325 MG TAB PO SCH (08:30)
[2018-12-09] MEDS: Carvedilol 25 MG TAB PO SCH ×2 (08:30→20:05)
[2018-12-09] MEDS: Aspirin 81 mg Enteric Coated Tablet PO SCH (08:30)
[2018-12-09] MEDS: hydrALAZINE 25 MG TAB PO SCH ×2 (08:30→20:05)
[2018-12-09] MEDS ORDERED: Allopurinol 100 MG TAB PO SCH (09:00)
[2018-12-09] MEDS ORDERED: Non-Formulary Item 1 EACH (Esomeprazole Magnesium [Nexium] 40 MG) PO SCH (09:00)
[2018-12-09 09:08] LABS: #Basophils 0.1 thou/uL (0.0-0.2); #Eosinphils 0.1 thou/uL (0.0-0.7); #Monocytes 1.1 thou/uL (0.11-0.59); #Neutrophils 5.5 thou/uL (1.40-6.50); %Basophils 0.7 % (0.0-1.0); %Eosinophils 1.4 % (0.0-10.0); %Lymphocytes 13.2 % (21.0-51.0); %Monocytes 13.8 % (0.0-10.0); %Neutrophils 70.9 % (42.0-75.0); Hemoglobin 11.3 g/dL (14.0-18.0); Mean Corpuscular HGB CONC 30.8 g/dL (32.0-36.0); Mean Corpuscular Hemoglobin 25.1 pg (27.0-31.0); Mean Corpuscular Volume 81.7 fL (78.0-98.0); Mean Platelet Volume 9.4 fL (7.4-10.4); Platelet Count 265 thou/uL (130-400); RBC Distribution Width 20.8 % (11.5-14.5); White Blood Cell (WBC) Count 7.7 thou/uL (4.8-10.8)
[2018-12-09 09:18] LABS: Anion Gap 20 mmol/L (10-20); BUN (Urea Nitrogen) 67 mg/dL (8.4-25.7); Calc. Creatinine Clearance 13 mL/min (70-130); Calcium 8.2 mg/dL (7.8-10.44); Carbon Dioxide 23 mmol/L (22-29); Chloride 98 mmol/L (98-107); Estimated GFR-MDRD 10; Glucose 104 mg/dL (70-105); Sodium 138 mmol/L (136-145)
--- NOTE | 2018-12-09 09:22 | PRG ---
DATE OF SERVICE: 12/09/2018 SUBJECTIVE: Mr. Quinn is a 58-year-old black male with ESRD, was found unresponsive at home. I had a close conversation with this patient. The patient is essentially unable to take care of himself at home. We have scheduled him for his dialysis today. He did miss dialysis yesterday and for that reason, we will do a short 3-hour hemodialysis today with fluid removal only as tolerated. No other complaints. No chest pain or shortness of breath. He does have decreased appetite. OBJECTIVE: VITAL SIGNS: Blood pressure 115/57, heart rate 69, respiratory rate 19. GENERAL EXAM: He is noted to be awake, alert, comfortable, not in distress. SKIN: Adequate turgor. HEENT: He has slightly pale conjunctivae. Anicteric sclerae. NECK: No neck mass. No carotid bruits. No JVD. CHEST: No deformities. LUNGS: Decreased breath sounds. HEART: Normal sinus rhythm. No murmur. No gallops. No rubs. ABDOMEN: Globular, soft, nontender. No masses. EXTREMITIES: No edema. No deformities. MEDICATIONS: Medications of December 09, 2018, was reviewed. LABORATORY DATA: Laboratories of December 08, 2018, white count 10.4, hemoglobin 13.2. Sodium 143, potassium 4.3, chloride 101, carbon dioxide 19, BUN 60, creatinine 6.18, glucose 117, AST 31, ALT 10, albumin 4.0, glucose 137. ASSESSMENT AND PLAN: 1. New syncopal episode. Continue to monitor. Supportive care. Adjust blood pressure medications as needed. 2. End-stage renal disease, stable. We will continue current three times a week hemodialysis. Since he missed his dialysis yesterday, we will do a 3-hour hemodialysis with this patient today. 3. ? of depression. Start Zoloft 100 mg one tablet daily. Consider care home placement for this patient, if he is amenable to this. Job ID: [id number] [facility]
[2018-12-09 09:29] LABS: Potassium 2.8 mmol/L (3.5-5.1)
[2018-12-09] MEDS: Allopurinol 100 MG TAB PO SCH (09:43)
--- NOTE | 2018-12-09 09:43 | PDOC.PN ---
- Subjective Encounter Start Date: 12/09/18 Encounter Start Time: 12:10 Subjective: Patient doing well. More interactive today. Knows where he is. Still -: doesn't know the year. No chest pain. No NAIDU. No SOB. - Objective MAR Reviewed: Yes Vital Signs & Weight: Vital Signs (12 hours) Temp 12/09/18 07:25 97.7 F 12/09/18 03:49 98.1 F 12/09/18 00:17 98.6 F Weight Weight 169 lb 3 oz Most Recent Monitor Data Heart Rate from ECG 69 NIBP 115/57 NIBP BP-Mean 76 Respiration from ECG 19 I&O: 12/08/18 12/09/18 12/10/18 06:59 06:59 06:59 Intake Total 500 Balance 500 Result Diagrams: 12/09/18 08:45 12/09/18 08:45 Additional Labs: Accuchecks 12/09/18 12/08/18 12/08/18 05:43 22:08 19:15 POC Glucose 137 H 96 101 Phys Exam - Physical Examination Constitutional: NAD HEENT: moist MMs Respiratory: no wheezing, no rales, no rhonchi Cardiovascular: RRR Gastrointestinal: soft, positive bowel sounds Neurological: non-focal, moves all 4 limbs Psychiatric: normal affect Deviation from normal: Alert and oriented x 2 Dx/Plan (1) Hypertensive emergency Code(s): I16.1 - HYPERTENSIVE EMERGENCY Status: Resolved Comment: Likely due to medical non-compliance and missing dialysis, now that meds restarted BP down to normal. (2) Hypokalemia Code(s): E87.6 - HYPOKALEMIA Status: Acute Comment: will need replacement during dialysis (3) ESRD (end stage renal disease) on dialysis Code(s): N18.6 - END STAGE RENAL DISEASE; Z99.2 - DEPENDENCE ON RENAL DIALYSIS Status: Chronic Comment: dialysis per nephrology (4) Acute metabolic encephalopathy Code(s): G93.41 - METABOLIC ENCEPHALOPATHY Status: Acute Comment: likely due to uremia, I do wonder if there is some underlying depression and agree with addition of SSRI (5) DM type 2 (diabetes mellitus, type 2) Status: Chronic Comment: holding insulin for now, bs well controlled (6) Hypertension Code(s): I10 - ESSENTIAL (PRIMARY) HYPERTENSION Status: Chronic Qualifiers: Comment: Difficult to control without causing hypotension, will resume meds that he was discharged on last visit (7) Gout Code(s): M10.9 - GOUT, UNSPECIFIED Status: Chronic Qualifiers: Comment: stable (8) Hyperlipidemia Code(s): E78.5 - HYPERLIPIDEMIA, UNSPECIFIED Status: Chronic - Plan cont current plan of care, PT/OT, transition social worker, DVT proph w/SCDs Can transfer out of [facility] * . - Discharge Day Encounter end time: 12:20
[2018-12-09] MEDS: Acetaminophen 325 MG TAB PO PRN (13:12)
[2018-12-09 17:23] LABS: HBSAg Index 0.24 S/CO (0-0.99); Hep B Surf Ag Non-Reactive S/CO (NonReactive)
[2018-12-09] MEDS: Atorvastatin Calcium 10 MG TAB PO SCH (20:05)
--- NOTE | 2018-12-10 09:17 | PRG ---
DATE OF SERVICE: 12/10/2018 SUBJECTIVE: Mr. Quinn is a 58-year-old black male with ESRD and being followed by the [facility] for his maintenance hemodialysis. He was admitted due to near syncopal episode. I had a long discussion with this patient. He would like to consider [facility] facility. He is unable to care for himself at home. He is currently undergoing dialysis. Tolerating said treatment. No other complaints. No chest pain or shortness of breath. He is feeling a little better. OBJECTIVE: VITAL SIGNS: Blood pressure 139/68, heart rate 63, respiratory rate 16, temperature 97.7, and pulse ox 91%. GENERAL: Noted to be awake, alert, comfortable, not in overt distress. SKIN: Adequate turgor. HEENT: He has pinkish conjunctivae. Anicteric sclerae. No neck mass. No carotid bruits. No JVD. CHEST: No deformities. LUNGS: Clear breath sounds. No wheezing. No crackles. HEART: Normal sinus rhythm. No murmurs, gallops, or rubs. ABDOMEN: Globular, soft, nontender. No masses. EXTREMITIES: No edema. No deformities. MEDICATIONS: Medications of December 10, 2018 was reviewed. LABORATORY DATA: Laboratories of December 09, 2018; white count 7.7, hemoglobin 11.3. Sodium 138, potassium 2.8, chloride 98, carbon dioxide 23, BUN 67, creatinine 6.65, calcium 8.2. ASSESSMENT AND PLAN: 1. End-stage renal disease, stable. Continue current Thursday, Thursday, Thursday dialysis regimen. Fluid removal only as tolerated. We will change dialysis time from 4 hours to 3.5 hours. 2. Hypokalemia - potassium bath. He is currently at 4.0. We will recheck basic metabolic panel in a.m. 3. Case management consult for [facility] facility placement. Job ID: [id number]
--- NOTE | 2018-12-10 11:59 | PDOC.PN ---
- Subjective Encounter Start Date: 12/10/18 Encounter Start Time: 09:45 Subjective: is getting HD, no sob feels better - Objective MAR Reviewed: Yes Vital Signs & Weight: Vital Signs (12 hours) Temp Pulse Resp BP Pulse Ox 12/10/18 04:00 97.7 F 63 16 139/68 91 L 12/10/18 00:00 97.8 F 65 16 132/69 98 Weight Weight 169 lb 3 oz Most Recent Monitor Data Heart Rate from ECG 57 NIBP 122/57 NIBP BP-Mean 78 Respiration from ECG 16 I&O: 12/09/18 12/10/18 12/11/18 06:59 06:59 06:59 Intake Total 500 2440 Balance 500 2440 Result Diagrams: 12/09/18 08:45 12/09/18 08:45 Additional Labs: Accuchecks 12/10/18 12/09/18 12/09/18 05:20 21:24 15:57 POC Glucose 98 143 H 121 H Phys Exam - Physical Examination HEENT: PERRLA, moist MMs Neck: no JVD, supple Respiratory: no wheezing, no rales Cardiovascular: RRR, no significant murmur Gastrointestinal: soft, non-tender, positive bowel sounds Musculoskeletal: no edema, pulses present Neurological: non-focal, moves all 4 limbs Psychiatric: normal affect, A&O x 3 Dx/Plan (1) Acute metabolic encephalopathy Code(s): G93.41 - METABOLIC ENCEPHALOPATHY Status: Acute Comment: resolving (2) Hypokalemia Code(s): E87.6 - HYPOKALEMIA Status: Acute Comment: will need replacement during dialysis (3) Hyperlipidemia Code(s): E78.5 - HYPERLIPIDEMIA, UNSPECIFIED Status: Chronic Qualifiers: Hyperlipidemia type: unspecified Qualified Code(s): E78.5 - Hyperlipidemia , unspecified (4) Hypertensive emergency Code(s): I16.1 - HYPERTENSIVE EMERGENCY Status: Resolved Comment: Likely due to medical non-compliance and missing dialysis, now that meds restarted BP down to normal. (5) Anemia of renal disease Code(s): D63.1 - ANEMIA IN CHRONIC KIDNEY DISEASE Status: Chronic (6) Chronic hepatitis C Code(s): B18.2 - CHRONIC VIRAL HEPATITIS C Status: Chronic Qualifiers: Comment: stable (7) DM type 2 (diabetes mellitus, type 2) Status: Chronic Qualifiers: Diabetes mellitus roasterman insulin use: with roasterman use Diabetes mellitus complication status: with kidney complications Chronic kidney disease stage: on chronic dialysis Comment: holding insulin for now, bs well controlled (8) ESRD (end stage renal disease) on dialysis Code(s): N18.6 - END STAGE RENAL DISEASE; Z99.2 - DEPENDENCE ON RENAL DIALYSIS Status: Chronic Comment: dialysis per nephrology (9) Gout Code(s): M10.9 - GOUT, UNSPECIFIED Status: Chronic Qualifiers: Comment: stable (10) Hypertension Code(s): I10 - ESSENTIAL (PRIMARY) HYPERTENSION Status: Chronic Qualifiers: Comment: will resume meds that he was discharged on last visit (11) Secondary hyperparathyroidism of renal origin Code(s): N25.81 - SECONDARY HYPERPARATHYROIDISM OF RENAL ORIGIN Status: Chronic - Plan is getting HD -: cognitively responds well, a bit lethargic -: is on asp, lipitor, coreg, hydralazine, imdur -: on zoloft for suspected depression -: to amb with PT as tolerated, dc planning * . Review of Systems - Medications/Allergies Allergies/Adverse Reactions: Allergies Allergy/AdvReac Type Severity Reaction Status Date / Time No Known Drug Allergies Allergy Verified 12/09/18 00:42 Medications: Current Medications Acetaminophen (Tylenol) 650 mg PO Q4H PRN PRN Reason: Headache/Fever/Mild Pain (1-3) Last Admin: 12/09/18 13:12 Dose: 650 mg Acetaminophen (Tylenol) 650 mg MN Q4H PRN PRN Reason: Headache/Fever/Mild Pain (1-3) Allopurinol (Zyloprim) 150 mg PO DAILY [facility] Last Admin: 12/09/18 09:43 Dose: Not Given Aspirin (Ecotrin) 81 mg PO DAILY [facility] Last Admin: 12/09/18 08:30 Dose: 81 mg Atorvastatin Calcium (Lipitor) 10 mg PO HS [facility] Last Admin: 12/09/18 20:05 Dose: 10 mg Carvedilol (Coreg) 25 mg PO BID [facility] Last Admin: 12/09/18 20:05 Dose: 25 mg Dextrose/Water (Dextrose 50%) 25 gm SLOW IVP PRN PRN PRN Reason: Hypoglycemia Ferrous Sulfate (Feosol) 325 mg PO QAM-[facility] Last Admin: 12/09/18 08:30 Dose: 325 mg Glucagon (Glucagon) 1 mg IM PRN PRN PRN Reason: Hypoglycemia Hydralazine HCl (Apresoline) 10 mg SLOW IVP Q4H PRN PRN Reason: Severe Hypertension Hydralazine HCl (Apresoline) 25 mg PO BID [facility] Last Admin: 12/09/18 20:05 Dose: 25 mg Dextrose/Water (D5w) 1,000 mls @ 0 mls/hr IV .Q0M PRN PRN Reason: Hypoglycemia Insulin Human Lispro (Humalog) 0 units SC .MILD SLIDING SCALE PRN PRN Reason: Mild Correctional Scale Insulin Human Lispro (Humalog) 0 units SC .BEDTIME SLIDING SC PRN PRN Reason: Bedtime Correctional Scale Isosorbide Mononitrate (Imdur) 60 mg PO DAILY [facility] Last Admin: 12/09/18 08:30 Dose: 60 mg Labetalol HCl (Normodyne) 10 mg SLOW IVP Q4H PRN PRN Reason: SBP Greater Than 180 Ondansetron HCl (Zofran Odt) 4 mg PO Q6H PRN PRN Reason: Nausea/Vomiting Ondansetron HCl (Zofran) 4 mg IVP Q6H PRN PRN Reason: Nausea/Vomiting Pantoprazole Sodium (Protonix) 40 mg PO DAILY [facility] Last Admin: 12/09/18 08:30 Dose: 40 mg Senna/Docusate Sodium (Senokot S) 2 tab PO BID PRN PRN Reason: Constipation Sertraline HCl (Zoloft) 100 mg PO DAILY [facility] Last Admin: 12/09/18 13:13 Dose: 100 mg
[2018-12-10] MEDS: Allopurinol 100 MG TAB PO SCH (12:00)
[2018-12-10] MEDS: Ferrous Sulfate 325 MG TAB PO SCH (12:00)
[2018-12-10] MEDS: Carvedilol 25 MG TAB PO SCH ×2 (12:01→20:45)
[2018-12-10] MEDS: hydrALAZINE 25 MG TAB PO SCH ×2 (12:01→20:44)
[2018-12-10] MEDS: Aspirin 81 mg Enteric Coated Tablet PO SCH (12:01)
[2018-12-10] MEDS: Atorvastatin Calcium 10 MG TAB PO SCH (20:45)
[2018-12-11 05:02] LABS: Anion Gap 15 mmol/L (10-20); BUN (Urea Nitrogen) 18 mg/dL (8.4-25.7); Calc. Creatinine Clearance 26 mL/min (70-130); Carbon Dioxide 27 mmol/L (22-29); Chloride 100 mmol/L (98-107); Estimated GFR-MDRD 24; Glucose 118 mg/dL (70-105); Potassium 3.5 mmol/L (3.5-5.1); Sodium 138 mmol/L (136-145)
[2018-12-11 05:04] LABS: Band 3 % (5-11); Eosinophils 4 % (0-10); Hemoglobin 10.9 g/dL (14.0-18.0); Lymphocytes 20 % (21-51); MDiff Complete? YES; Mean Corpuscular HGB CONC 31.4 g/dL (32.0-36.0); Mean Corpuscular Hemoglobin 26.1 pg (27.0-31.0); Mean Corpuscular Volume 83.2 fL (78.0-98.0); Mean Platelet Volume 10.2 fL (7.4-10.4); Monocytes 9 % (0-10); Neutrophil 61 % (42-75); Nucleated RBC 1 % (0); Platelet Count 191 thou/uL (130-400); Platelet Morphology Comment Appears Adequate; RBC Distribution Width 20.8 % (11.5-14.5); Reactive Lymphocytes 3 % (0-10); Red Blood Cell (RBC) Count 4.17 mill/uL (4.70-6.10); Target Cells SLIGHT = 2-5 cells (100X) (0-1/hpf); White Blood Cell (WBC) Count 4.4 thou/uL (4.8-10.8)
[2018-12-11] MEDS: Carvedilol 25 MG TAB PO SCH ×2 (08:34→20:18)
[2018-12-11] MEDS: Aspirin 81 mg Enteric Coated Tablet PO SCH (08:34)
[2018-12-11] MEDS: Ferrous Sulfate 325 MG TAB PO SCH (08:34)
[2018-12-11] MEDS: Allopurinol 100 MG TAB PO SCH (08:34)
[2018-12-11] MEDS: hydrALAZINE 25 MG TAB PO SCH ×2 (08:35→20:18)
--- NOTE | 2018-12-11 12:40 | PDOC.PN ---
- Subjective Encounter Start Date: 12/11/18 Encounter Start Time: 10:40 Subjective: is lethargic but oriented -: ate his breakfast -: no sob - Objective MAR Reviewed: Yes Vital Signs & Weight: Vital Signs (12 hours) Temp Pulse Resp BP BP Pulse Ox 12/11/18 11:50 97.4 F L 70 20 172/72 H 92 L 12/11/18 08:35 66 173/80 H 12/11/18 08:00 97.5 F L 62 16 173/80 H 91 L 12/11/18 05:54 179/82 H 12/11/18 03:58 97.8 F 65 20 180/77 H 91 L Weight Weight 169 lb 3 oz Most Recent Monitor Data Heart Rate from ECG 57 NIBP 122/57 NIBP BP-Mean 78 Respiration from ECG 16 I&O: 12/10/18 12/11/18 12/12/18 06:59 06:59 06:59 Intake Total 2440 1090 Output Total 2000 Balance 2440 -910 Result Diagrams: 12/11/18 04:05 12/11/18 04:05 Additional Labs: Accuchecks 12/11/18 12/10/18 12/10/18 05:51 21:03 15:39 POC Glucose 103 137 H 106 Phys Exam - Physical Examination HEENT: PERRLA, moist MMs Neck: no JVD, supple Respiratory: no wheezing, no rales Cardiovascular: RRR, no significant murmur Gastrointestinal: soft, non-tender, positive bowel sounds Musculoskeletal: no edema, pulses present Neurological: non-focal, moves all 4 limbs Dx/Plan (1) Acute metabolic encephalopathy Code(s): G93.41 - METABOLIC ENCEPHALOPATHY Status: Acute Comment: resolving (2) Hypokalemia Code(s): E87.6 - HYPOKALEMIA Status: Resolved (3) Hyperlipidemia Code(s): E78.5 - HYPERLIPIDEMIA, UNSPECIFIED Status: Chronic Qualifiers: Hyperlipidemia type: unspecified Qualified Code(s): E78.5 - Hyperlipidemia , unspecified (4) Hypertensive emergency Code(s): I16.1 - HYPERTENSIVE EMERGENCY Status: Resolved Comment: Likely due to medical non-compliance and missing dialysis, now that meds restarted BP down to normal. (5) Anemia of renal disease Code(s): D63.1 - ANEMIA IN CHRONIC KIDNEY DISEASE Status: Chronic (6) Chronic hepatitis C Code(s): B18.2 - CHRONIC VIRAL HEPATITIS C Status: Chronic Qualifiers: Hepatic coma status: without hepatic coma Comment: stable (7) DM type 2 (diabetes mellitus, type 2) Status: Chronic Qualifiers: Diabetes mellitus half-way insulin use: with half-way use Diabetes mellitus complication status: with kidney complications Chronic kidney disease stage: on chronic dialysis Comment: holding insulin for now, bs well controlled (8) ESRD (end stage renal disease) on dialysis Code(s): N18.6 - END STAGE RENAL DISEASE; Z99.2 - DEPENDENCE ON RENAL DIALYSIS Status: Chronic Comment: dialysis per nephrology (9) Gout Code(s): M10.9 - GOUT, UNSPECIFIED Status: Chronic Qualifiers: Comment: stable (10) Hypertension Code(s): I10 - ESSENTIAL (PRIMARY) HYPERTENSION Status: Chronic Qualifiers: (11) Secondary hyperparathyroidism of renal origin Code(s): N25.81 - SECONDARY HYPERPARATHYROIDISM OF RENAL ORIGIN Status: Chronic - Plan to mobilize more with PT, a bit lethargic but better than yesterday -: awaiting rehab placement -: HD per nephrology adv -: continue asp, lipitor, coreg, hydralazine, imdur and zoloft -: has deconditioning and barely stood with PT yesterday * . Review of Systems - Medications/Allergies Allergies/Adverse Reactions: Allergies Allergy/AdvReac Type Severity Reaction Status Date / Time No Known Drug Allergies Allergy Verified 12/09/18 00:42 Medications: Current Medications Acetaminophen (Tylenol) 650 mg PO Q4H PRN PRN Reason: Headache/Fever/Mild Pain (1-3) Last Admin: 12/09/18 13:12 Dose: 650 mg Acetaminophen (Tylenol) 650 mg MD Q4H PRN PRN Reason: Headache/Fever/Mild Pain (1-3) Allopurinol (Zyloprim) 150 mg PO DAILY [facility] Last Admin: 12/11/18 08:34 Dose: 150 mg Aspirin (Ecotrin) 81 mg PO DAILY [facility] Last Admin: 12/11/18 08:34 Dose: 81 mg Atorvastatin Calcium (Lipitor) 10 mg PO HS [facility] Last Admin: 12/10/18 20:45 Dose: 10 mg Carvedilol (Coreg) 25 mg PO BID [facility] Last Admin: 12/11/18 08:34 Dose: 25 mg Dextrose/Water (Dextrose 50%) 25 gm SLOW IVP PRN PRN PRN Reason: Hypoglycemia Ferrous Sulfate (Feosol) 325 mg PO QA-[facility] Last Admin: 12/11/18 08:34 Dose: 325 mg Glucagon (Glucagon) 1 mg IM PRN PRN PRN Reason: Hypoglycemia Hydralazine HCl (Apresoline) 10 mg SLOW IVP Q4H PRN PRN Reason: Severe Hypertension Hydralazine HCl (Apresoline) 25 mg PO BID [facility] Last Admin: 12/11/18 08:35 Dose: 25 mg Dextrose/Water (D5w) 1,000 mls @ 0 mls/hr IV .Q0M PRN PRN Reason: Hypoglycemia Insulin Human Lispro (Humalog) 0 units SC .MILD SLIDING SCALE PRN PRN Reason: Mild Correctional Scale Insulin Human Lispro (Humalog) 0 units SC .BEDTIME SLIDING SC PRN PRN Reason: Bedtime Correctional Scale Isosorbide Mononitrate (Imdur) 60 mg PO DAILY [facility] Last Admin: 12/11/18 08:35 Dose: 60 mg Labetalol HCl (Normodyne) 10 mg SLOW IVP Q4H PRN PRN Reason: SBP Greater Than 180 Ondansetron HCl (Zofran Odt) 4 mg PO Q6H PRN PRN Reason: Nausea/Vomiting Last Admin: 12/11/18 08:34 Dose: 4 mg Ondansetron HCl (Zofran) 4 mg IVP Q6H PRN PRN Reason: Nausea/Vomiting Pantoprazole Sodium (Protonix) 40 mg PO DAILY [facility] Last Admin: 12/11/18 08:34 Dose: 40 mg Senna/Docusate Sodium (Senokot S) 2 tab PO BID PRN PRN Reason: Constipation Sertraline HCl (Zoloft) 100 mg PO DAILY [facility] Last Admin: 12/11/18 08:34 Dose: 100 mg
--- NOTE | 2018-12-11 18:45 | EKG ---
Test Reason : Blood Pressure : / mmHG Vent. Rate : 085 BPM Atrial Rate : 085 BPM P-R Int : 194 ms QRS Dur : 094 ms QT Int : 462 ms P-R-T Axes : -08 049 013 degrees QTc Int : 549 ms Normal sinus rhythm RSR' or QR pattern in V1 suggests right ventricular conduction delay Voltage criteria for left ventricular hypertrophy Nonspecific T wave abnormality Prolonged QT Abnormal ECG Confirmed by STACEY CHAVEZ ([id number]), dictionary editor DEMI PORTILLO ([id number]) on 12/11/2018 6:44:41 PM Referred By: Confirmed By:STACEY CHAVEZ
[2018-12-11] MEDS: Atorvastatin Calcium 10 MG TAB PO SCH (20:18)
[2018-12-12] MEDS: hydrALAZINE 20 MG/ML VIAL SLOW IVP PRN ×2 (03:49→12:47)
[2018-12-12] MEDS: Allopurinol 100 MG TAB PO SCH (08:11)
[2018-12-12] MEDS: Ferrous Sulfate 325 MG TAB PO SCH (08:11)
[2018-12-12] MEDS: hydrALAZINE 25 MG TAB PO SCH ×4 (08:12→20:41)
[2018-12-12] MEDS: Carvedilol 25 MG TAB PO SCH ×2 (08:13→20:44)
[2018-12-12] MEDS: Aspirin 81 mg Enteric Coated Tablet PO SCH (08:13)
[2018-12-12] MEDS ORDERED: FATTY ACIDS PO SCH (09:00)
[2018-12-12] MEDS ORDERED: OMEGA PO SCH (09:00)
[2018-12-12] MEDS: Polyethylene Glycol 3350 17 GM Packet PO SCH (10:25)
[2018-12-12] MEDS: NIFEdipine XL 30 MG TAB PO SCH (10:26)
[2018-12-12] MEDS: Fish Oil 1,000 MG CAP PO SCH ×2 (10:26→20:42)
--- NOTE | 2018-12-12 11:25 | PRG ---
DATE OF SERVICE: 12/12/2018 SUBJECTIVE: Mr. Quinn is a 58-year-old black male with ESRD and followed by the [facility] for his maintenance hemodialysis. He received dialysis on Thursday. He is doing well. We are currently awaiting retirement placement versus rehab placement for this patient. No other complaints today. He still feels weak. His appetite is somewhat improved. He denies any chest pain or shortness of breath. OBJECTIVE: VITAL SIGNS: Blood pressure is 184/87, with heart rate of 63, respiratory rate 18, temperature 97.3, and pulse ox 94%. GENERAL: Noted to be awake, alert, comfortable, not in distress. SKIN: Adequate turgor. HEENT: Slightly pale conjunctivae. Anicteric sclerae. No neck mass. No carotid bruits. No JVD. CHEST: No deformities. LUNGS: Clear breath sounds. HEART: Normal sinus rhythm. No murmur. No gallops. No rubs. ABDOMEN: Globular, soft, nontender. No masses. EXTREMITIES: No edema. No deformities. MEDICATIONS: Medications of 12/12/2018, reviewed. LABORATORY DATA: Of 12/11/2018; hemoglobin 10.9. Sodium 138, potassium 3.5, chloride 100, carbon dioxide 27, BUN 18, creatinine 3.06, calcium 8. ASSESSMENT AND PLAN: 1. End-stage renal disease. Continue current Thursday, Thursday, Thursday dialysis. Again, fluid removal only as tolerated. 2. Borderline anemia-no indication for Epogen. Continue iron supplementation. 3. General deconditioning. Unable to take care of himself at home. Placement in a penitentiary facility versus rehab is being considered. We are awaiting final decision. Overall, agree with current management. Job ID: [id number]
--- NOTE | 2018-12-12 11:51 | PDOC.PN ---
- Subjective Encounter Start Date: 12/12/18 Encounter Start Time: 08:15 Subjective: is more awake and oriented this am -: no chest pain or sob, has elevated sbp -: is moving all extre on bed - Objective MAR Reviewed: Yes Vital Signs & Weight: Vital Signs (12 hours) Temp Pulse Resp BP BP Pulse Ox 12/12/18 10:26 63 184/87 H 12/12/18 10:04 63 200/92 H 12/12/18 08:12 63 200/92 H 12/12/18 08:06 200/92 H 12/12/18 08:00 97.3 F L 63 18 193/85 H 94 L 12/12/18 07:50 94 L 12/12/18 04:12 179/80 H 12/12/18 04:00 97.7 F 59 L 16 190/84 H 92 L 12/12/18 03:49 59 L 188/85 H 12/12/18 01:30 94 L 12/12/18 00:27 97.7 F 63 16 182/81 H 90 L Weight Weight 169 lb 3 oz Most Recent Monitor Data Heart Rate from ECG 57 NIBP 122/57 NIBP BP-Mean 78 Respiration from ECG 16 I&O: 12/11/18 12/12/18 12/13/18 06:59 06:59 06:59 Intake Total 1090 730 Output Total 1999 Balance -910 730 Result Diagrams: 12/11/18 04:05 12/11/18 04:05 Additional Labs: Accuchecks 12/12/18 12/11/18 12/11/18 05:45 19:30 15:59 POC Glucose 84 166 H 110 12/11/18 10:45 POC Glucose 118 H Phys Exam - Physical Examination HEENT: PERRLA, moist MMs Neck: no JVD, supple Respiratory: no wheezing, no rales Cardiovascular: RRR, no significant murmur Gastrointestinal: soft, non-tender, positive bowel sounds Musculoskeletal: no edema, pulses present Neurological: non-focal, moves all 4 limbs Psychiatric: normal affect, A&O x 3 Dx/Plan (1) Acute metabolic encephalopathy Code(s): G93.41 - METABOLIC ENCEPHALOPATHY Status: Acute Comment: resolving (2) Hypokalemia Code(s): E87.6 - HYPOKALEMIA Status: Resolved (3) Hyperlipidemia Code(s): E78.5 - HYPERLIPIDEMIA, UNSPECIFIED Status: Chronic Qualifiers: Hyperlipidemia type: unspecified Qualified Code(s): E78.5 - Hyperlipidemia , unspecified (4) Hypertensive emergency Code(s): I16.1 - HYPERTENSIVE EMERGENCY Status: Resolved Comment: Likely due to medical non-compliance and missing dialysis, now that meds restarted BP down to normal. (5) Anemia of renal disease Code(s): D63.1 - ANEMIA IN CHRONIC KIDNEY DISEASE Status: Chronic (6) Chronic hepatitis C Code(s): B18.2 - CHRONIC VIRAL HEPATITIS C Status: Chronic Qualifiers: Hepatic coma status: without hepatic coma Comment: stable (7) DM type 2 (diabetes mellitus, type 2) Status: Chronic Qualifiers: Diabetes mellitus healthcare financial analyst insulin use: with healthcare financial analyst use Diabetes mellitus complication status: with kidney complications Chronic kidney disease stage: on chronic dialysis Comment: holding insulin for now, bs well controlled (8) ESRD (end stage renal disease) on dialysis Code(s): N18.6 - END STAGE RENAL DISEASE; Z99.2 - DEPENDENCE ON RENAL DIALYSIS Status: Chronic Comment: dialysis per nephrology (9) Gout Code(s): M10.9 - GOUT, UNSPECIFIED Status: Chronic Qualifiers: Comment: stable (10) Hypertension Code(s): I10 - ESSENTIAL (PRIMARY) HYPERTENSION Status: Chronic Qualifiers: (11) Secondary hyperparathyroidism of renal origin Code(s): N25.81 - SECONDARY HYPERPARATHYROIDISM OF RENAL ORIGIN Status: Chronic (12) Physical deconditioning Code(s): R53.81 - OTHER MALAISE Status: Acute - Plan is awaiting placement to rehab -: encephalopathy is almost resolved -: to mobilize more with PT, barely stood on the 8th -: increase hydralazine to 75mg tid, add procardia xl -: continue coreg, imdur, asp, lipitor and zoloft * . Review of Systems - Medications/Allergies Allergies/Adverse Reactions: Allergies Allergy/AdvReac Type Severity Reaction Status Date / Time No Known Drug Allergies Allergy Verified 12/09/18 00:42 Medications: Current Medications Acetaminophen (Tylenol) 650 mg PO Q4H PRN PRN Reason: Headache/Fever/Mild Pain (1-3) Last Admin: 12/09/18 13:12 Dose: 650 mg Acetaminophen (Tylenol) 650 mg [place] Q4H PRN PRN Reason: Headache/Fever/Mild Pain (1-3) Allopurinol (Zyloprim) 150 mg PO DAILY [facility] Last Admin: 12/12/18 08:11 Dose: 150 mg Aspirin (Ecotrin) 81 mg PO DAILY [facility] Last Admin: 12/12/18 08:13 Dose: 81 mg Atorvastatin Calcium (Lipitor) 10 mg PO HS [facility] Last Admin: 12/11/18 20:18 Dose: 10 mg Carvedilol (Coreg) 25 mg PO BID [facility] Last Admin: 12/12/18 08:13 Dose: 25 mg Dextrose/Water (Dextrose 50%) 25 gm SLOW IVP PRN PRN PRN Reason: Hypoglycemia Ferrous Sulfate (Feosol) 325 mg PO QA[facility] Last Admin: 12/12/18 08:11 Dose: 325 mg Fish Oil (Fish Oil) 1,000 mg PO BID [facility] Last Admin: 12/12/18 10:26 Dose: 1,000 mg Glucagon (Glucagon) 1 mg IM PRN PRN PRN Reason: Hypoglycemia Hydralazine HCl (Apresoline) 10 mg SLOW IVP Q4H PRN PRN Reason: Severe Hypertension Last Admin: 12/12/18 03:49 Dose: 10 mg Hydralazine HCl (Apresoline) 75 mg PO TID [facility] Last Admin: 12/12/18 10:04 Dose: Not Given Dextrose/Water (D5w) 1,000 mls @ 0 mls/hr IV .Q0M PRN PRN Reason: Hypoglycemia Insulin Human Lispro (Humalog) 0 units SC .MILD SLIDING SCALE PRN PRN Reason: Mild Correctional Scale Insulin Human Lispro (Humalog) 0 units SC .BEDTIME SLIDING SC PRN PRN Reason: Bedtime Correctional Scale Isosorbide Mononitrate (Imdur) 60 mg PO DAILY [facility] Last Admin: 12/12/18 08:12 Dose: 60 mg Labetalol HCl (Normodyne) 10 mg SLOW IVP Q4H PRN PRN Reason: SBP Greater Than 180 Nifedipine (Procardia Xl) 30 mg PO DAILY [facility] Last Admin: 12/12/18 10:26 Dose: 30 mg Ondansetron HCl (Zofran Odt) 4 mg PO Q6H PRN PRN Reason: Nausea/Vomiting Last Admin: 12/11/18 08:34 Dose: 4 mg Ondansetron HCl (Zofran) 4 mg IVP Q6H PRN PRN Reason: Nausea/Vomiting Pantoprazole Sodium (Protonix) 40 mg PO DAILY [facility] Last Admin: 12/12/18 08:12 Dose: 40 mg Polyethylene Glycol (Miralax) 17 gm PO DAILY [facility] Last Admin: 12/12/18 10:25 Dose: 17 gm Senna/Docusate Sodium (Senokot S) 2 tab PO BID PRN PRN Reason: Constipation Sertraline HCl (Zoloft) 100 mg PO DAILY [facility] Last Admin: 12/12/18 08:11 Dose: 100 mg
[2018-12-12] MEDS: Atorvastatin Calcium 10 MG TAB PO SCH (20:42)
--- NOTE | 2018-12-13 09:11 | PRG ---
DATE OF SERVICE: 12/13/2018 SUBJECTIVE: Mr. Quinn is a 58-year-old black male, who was admitted for generalized malaise and weakness. He was also found to be unresponsive at home. He is doing well. We are awaiting for a retirement placement with this patient. He is currently undergoing hemodialysis. I am at the bedside supervising his dialysis. He voices no new complaints. No chest pain or shortness of breath. OBJECTIVE: VITAL SIGNS: Blood pressure 155/74, heart rate 63, respiratory rate 20, temperature 97.8, and pulse ox 92%. GENERAL: Noted to be awake, alert, comfortable, not in distress. SKIN: Adequate turgor. HEENT: He has pinkish conjunctivae. Anicteric sclerae. No neck mass. No carotid bruits. No JVD. CHEST: No deformities. LUNGS: Clear breath sounds. HEART: Normal sinus rhythm. No murmurs, gallops, or rubs. ABDOMEN: Globular, soft, nontender. No masses. EXTREMITIES: No edema. No deformities. MEDICATIONS: Medications of December 13, 2018, reviewed. LABORATORY DATA: Laboratories of December 11, 2018; white count 4.4, hemoglobin 10.9. On December 12, 2018, glucose 157. ASSESSMENT AND PLAN: 1. End-stage renal disease, stable, tolerating current hemodialysis regimen. Fluid removal as tolerated. Continue Thursday, Thursday, Thursday dialysis. 2. Awaiting retirement placement. Job ID: [id number]
[2018-12-13] MEDS ORDERED: Epoetin (ESRD) 20,000 UNITS/ML SC SCH (10:00)
--- NOTE | 2018-12-13 11:21 | PDOC.PN ---
- Subjective Encounter Start Date: 12/13/18 Encounter Start Time: 08:50 Subjective: getting HD -: no sob, is awake and responds well - Objective MAR Reviewed: Yes Vital Signs & Weight: Vital Signs (12 hours) Temp Pulse Resp BP Pulse Ox 12/13/18 07:50 92 L 12/13/18 07:30 97.8 F 63 20 155/74 H 92 L 12/13/18 04:00 97.5 F L 63 20 143/66 H 93 L 12/13/18 00:00 97.7 F 60 20 126/67 92 L Weight Weight 169 lb 3 oz Most Recent Monitor Data Heart Rate from ECG 57 NIBP 122/57 NIBP BP-Mean 78 Respiration from ECG 16 I&O: 12/12/18 12/13/18 12/14/18 06:59 06:59 06:59 Intake Total 730 900 Balance 730 900 Result Diagrams: 12/11/18 04:05 12/11/18 04:05 Additional Labs: Accuchecks 12/12/18 12/12/18 12/12/18 20:45 16:10 11:17 POC Glucose 157 H 109 115 H Phys Exam - Physical Examination HEENT: PERRLA, moist MMs Neck: no JVD, supple Respiratory: no wheezing, no rales Cardiovascular: RRR, no significant murmur Gastrointestinal: soft, non-tender, positive bowel sounds Musculoskeletal: no edema, pulses present Neurological: non-focal, moves all 4 limbs Psychiatric: A&O x 3 Dx/Plan (1) Acute metabolic encephalopathy Code(s): G93.41 - METABOLIC ENCEPHALOPATHY Status: Resolved (2) Hypokalemia Code(s): E87.6 - HYPOKALEMIA Status: Resolved (3) Hyperlipidemia Code(s): E78.5 - HYPERLIPIDEMIA, UNSPECIFIED Status: Chronic Qualifiers: Hyperlipidemia type: unspecified Qualified Code(s): E78.5 - Hyperlipidemia , unspecified (4) Hypertensive emergency Code(s): I16.1 - HYPERTENSIVE EMERGENCY Status: Resolved Comment: Likely due to medical non-compliance and missing dialysis, now that meds restarted BP down to normal. (5) Anemia of renal disease Code(s): D63.1 - ANEMIA IN CHRONIC KIDNEY DISEASE Status: Chronic (6) Chronic hepatitis C Code(s): B18.2 - CHRONIC VIRAL HEPATITIS C Status: Chronic Qualifiers: Hepatic coma status: without hepatic coma Comment: stable (7) DM type 2 (diabetes mellitus, type 2) Status: Chronic Qualifiers: Diabetes mellitus detention insulin use: with termite technician use Diabetes mellitus complication status: with kidney complications Chronic kidney disease stage: on chronic dialysis Comment: holding insulin for now, bs well controlled (8) ESRD (end stage renal disease) on dialysis Code(s): N18.6 - END STAGE RENAL DISEASE; Z99.2 - DEPENDENCE ON RENAL DIALYSIS Status: Chronic Comment: dialysis per nephrology (9) Gout Code(s): M10.9 - GOUT, UNSPECIFIED Status: Chronic Qualifiers: Comment: stable (10) Hypertension Code(s): I10 - ESSENTIAL (PRIMARY) HYPERTENSION Status: Chronic Qualifiers: (11) Secondary hyperparathyroidism of renal origin Code(s): N25.81 - SECONDARY HYPERPARATHYROIDISM OF RENAL ORIGIN Status: Chronic (12) Physical deconditioning Code(s): R53.81 - OTHER MALAISE Status: Acute - Plan awaiting placement, may dc if ready -: continue asp, lipitor, coreg, imdur, hydralazine and zoloft -: to mobilize as tolerated with PT -: hemostable * . Review of Systems - Medications/Allergies Allergies/Adverse Reactions: Allergies Allergy/AdvReac Type Severity Reaction Status Date / Time No Known Drug Allergies Allergy Verified 12/09/18 00:42 Medications: Current Medications Acetaminophen (Tylenol) 650 mg PO Q4H PRN PRN Reason: Headache/Fever/Mild Pain (1-3) Last Admin: 12/09/18 13:12 Dose: 650 mg Acetaminophen (Tylenol) 650 mg [place] Q4H PRN PRN Reason: Headache/Fever/Mild Pain (1-3) Allopurinol (Zyloprim) 150 mg PO DAILY [facility] Last Admin: 12/12/18 08:11 Dose: 150 mg Aspirin (Ecotrin) 81 mg PO DAILY [facility] Last Admin: 12/12/18 08:13 Dose: 81 mg Atorvastatin Calcium (Lipitor) 10 mg PO HS [facility] Last Admin: 12/12/18 20:42 Dose: 10 mg Carvedilol (Coreg) 25 mg PO BID [facility] Last Admin: 12/12/18 20:44 Dose: Not Given Dextrose/Water (Dextrose 50%) 25 gm SLOW IVP PRN PRN PRN Reason: Hypoglycemia Epoetin Raghav (Procrit) 7,500 units SC Q7D [facility] Ferrous Sulfate (Feosol) 325 mg PO QAM-WM [facility] Last Admin: 12/12/18 08:11 Dose: 325 mg Fish Oil (Fish Oil) 1,000 mg PO BID [facility] Last Admin: 12/12/18 20:42 Dose: 1,000 mg Glucagon (Glucagon) 1 mg IM PRN PRN PRN Reason: Hypoglycemia Hydralazine HCl (Apresoline) 10 mg SLOW IVP Q4H PRN PRN Reason: Severe Hypertension Last Admin: 12/12/18 12:47 Dose: 10 mg Hydralazine HCl (Apresoline) 75 mg PO TID [facility] Last Admin: 12/12/18 20:41 Dose: 75 mg Dextrose/Water (D5w) 1,000 mls @ 0 mls/hr IV .Q0M PRN PRN Reason: Hypoglycemia Insulin Human Lispro (Humalog) 0 units SC .MILD SLIDING SCALE PRN PRN Reason: Mild Correctional Scale Insulin Human Lispro (Humalog) 0 units SC .BEDTIME SLIDING SC PRN PRN Reason: Bedtime Correctional Scale Isosorbide Mononitrate (Imdur) 60 mg PO DAILY [facility] Last Admin: 12/12/18 08:12 Dose: 60 mg Labetalol HCl (Normodyne) 10 mg SLOW IVP Q4H PRN PRN Reason: SBP Greater Than 180 Nifedipine (Procardia Xl) 30 mg PO DAILY [facility] Last Admin: 12/12/18 10:26 Dose: 30 mg Ondansetron HCl (Zofran Odt) 4 mg PO Q6H PRN PRN Reason: Nausea/Vomiting Last Admin: 12/11/18 08:34 Dose: 4 mg Ondansetron HCl (Zofran) 4 mg IVP Q6H PRN PRN Reason: Nausea/Vomiting Pantoprazole Sodium (Protonix) 40 mg PO DAILY [facility] Last Admin: 12/12/18 08:12 Dose: 40 mg Polyethylene Glycol (Miralax) 17 gm PO DAILY [facility] Last Admin: 12/12/18 10:25 Dose: 17 gm Senna/Docusate Sodium (Senokot S) 2 tab PO BID PRN PRN Reason: Constipation Sertraline HCl (Zoloft) 100 mg PO DAILY [facility] Last Admin: 12/12/18 08:11 Dose: 100 mg
[2018-12-13] MEDS: hydrALAZINE 25 MG TAB PO SCH ×3 (12:15→20:25)
[2018-12-13] MEDS: NIFEdipine XL 30 MG TAB PO SCH (14:02)
[2018-12-13] MEDS: Fish Oil 1,000 MG CAP PO SCH ×2 (14:02→20:24)
[2018-12-13] MEDS: Polyethylene Glycol 3350 17 GM Packet PO SCH (14:03)
[2018-12-13] MEDS: Aspirin 81 mg Enteric Coated Tablet PO SCH (14:03)
[2018-12-13] MEDS: Allopurinol 100 MG TAB PO SCH (14:03)
[2018-12-13] MEDS: Carvedilol 25 MG TAB PO SCH ×2 (14:03→20:24)
[2018-12-13 14:54] LABS: Hemoglobin 10.9 g/dL (14.0-18.0); Mean Corpuscular Hemoglobin 25.3 pg (27.0-31.0); Mean Corpuscular Volume 81.6 fL (78.0-98.0); Mean Platelet Volume 10.3 fL (7.4-10.4); Platelet Count 190 thou/uL (130-400); Red Blood Cell (RBC) Count 4.32 mill/uL (4.70-6.10); White Blood Cell (WBC) Count 4.8 thou/uL (4.8-10.8)
[2018-12-13 15:12] LABS: Anisocytosis MODERATE=16-30 cells (100X) (0-5/hpf); Band 1 % (5-11); Eosinophils 5 % (0-10); Hypochromia SLIGHT = 6-15 cells (100X) (0-5/hpf); Lymphocytes 8 % (21-51); MDiff Complete? YES; Monocytes 12 % (0-10); Neutrophil 73 % (42-75); Platelet Morphology Comment Appears Adequate; Polychromasia SLIGHT = 2-3 cells (100X) (0-2/hpf); Target Cells SLIGHT = 2-5 cells (100X) (0-1/hpf)
[2018-12-13] MEDS: Ferrous Sulfate 325 MG TAB PO SCH (15:56)
[2018-12-13] MEDS: Atorvastatin Calcium 10 MG TAB PO SCH (20:24)
[2018-12-13] MEDS: Acetaminophen 325 MG TAB PO PRN (20:28)
[2018-12-14] MEDS: NIFEdipine XL 30 MG TAB PO SCH (10:06)
[2018-12-14] MEDS: Carvedilol 25 MG TAB PO SCH ×2 (10:07→20:06)
[2018-12-14] MEDS: hydrALAZINE 25 MG TAB PO SCH ×3 (10:07→20:05)
[2018-12-14] MEDS: Fish Oil 1,000 MG CAP PO SCH ×2 (10:08→20:06)
[2018-12-14] MEDS: Aspirin 81 mg Enteric Coated Tablet PO SCH (10:08)
[2018-12-14] MEDS: Polyethylene Glycol 3350 17 GM Packet PO SCH (10:08)
[2018-12-14] MEDS: Ferrous Sulfate 325 MG TAB PO SCH (10:09)
[2018-12-14] MEDS: Allopurinol 100 MG TAB PO SCH (10:09)
--- NOTE | 2018-12-14 12:48 | PDOC.PN ---
- Subjective Encounter Start Date: 12/14/18 Encounter Start Time: 07:35 Subjective: awake, wants to sleep -: does not feel like eating breakfast this am -: no sob or chest pain, moves all extremities - Objective MAR Reviewed: Yes Vital Signs & Weight: Vital Signs (12 hours) Temp Pulse Resp BP BP Pulse Ox 12/14/18 10:07 60 12/14/18 10:06 97.8 F 64 16 156/69 H 156/69 H 93 L 12/14/18 04:00 97.4 F L 60 20 136/67 95 12/14/18 03:43 91 L Weight Weight 169 lb 3 oz Most Recent Monitor Data Heart Rate from ECG 57 NIBP 122/57 NIBP BP-Mean 78 Respiration from ECG 16 I&O: 12/13/18 12/14/18 12/15/18 06:59 06:59 06:59 Intake Total 900 720 Balance 900 720 Result Diagrams: 12/13/18 14:43 12/11/18 04:05 Additional Labs: Accuchecks 12/14/18 12/13/18 12/13/18 06:12 20:33 16:08 POC Glucose 127 H 135 H 120 H 12/13/18 12/13/18 13:44 05:16 POC Glucose 86 101 Phys Exam - Physical Examination HEENT: PERRLA, moist MMs Neck: no JVD, supple Respiratory: no wheezing, no rales Cardiovascular: RRR, no significant murmur Gastrointestinal: soft, non-tender, positive bowel sounds Musculoskeletal: no edema, pulses present Neurological: non-focal, moves all 4 limbs Dx/Plan (1) Acute metabolic encephalopathy Code(s): G93.41 - METABOLIC ENCEPHALOPATHY Status: Resolved (2) Hypokalemia Code(s): E87.6 - HYPOKALEMIA Status: Resolved (3) Hyperlipidemia Code(s): E78.5 - HYPERLIPIDEMIA, UNSPECIFIED Status: Chronic Qualifiers: Hyperlipidemia type: unspecified Qualified Code(s): E78.5 - Hyperlipidemia , unspecified (4) Hypertensive emergency Code(s): I16.1 - HYPERTENSIVE EMERGENCY Status: Resolved Comment: Likely due to medical non-compliance and missing dialysis, now that meds restarted BP down to normal. (5) Anemia of renal disease Code(s): D63.1 - ANEMIA IN CHRONIC KIDNEY DISEASE Status: Chronic (6) Chronic hepatitis C Code(s): B18.2 - CHRONIC VIRAL HEPATITIS C Status: Chronic Qualifiers: Hepatic coma status: without hepatic coma Comment: stable (7) DM type 2 (diabetes mellitus, type 2) Status: Chronic Qualifiers: Diabetes mellitus chcf insulin use: with chcf use Diabetes mellitus complication status: with kidney complications Chronic kidney disease stage: on chronic dialysis Comment: holding insulin for now, bs well controlled (8) ESRD (end stage renal disease) on dialysis Code(s): N18.6 - END STAGE RENAL DISEASE; Z99.2 - DEPENDENCE ON RENAL DIALYSIS Status: Chronic Comment: dialysis per nephrology (9) Gout Code(s): M10.9 - GOUT, UNSPECIFIED Status: Chronic Qualifiers: Comment: stable (10) Hypertension Code(s): I10 - ESSENTIAL (PRIMARY) HYPERTENSION Status: Chronic Qualifiers: (11) Secondary hyperparathyroidism of renal origin Code(s): N25.81 - SECONDARY HYPERPARATHYROIDISM OF RENAL ORIGIN Status: Chronic (12) Physical deconditioning Code(s): R53.81 - OTHER MALAISE Status: Acute - Plan awaiting swing placement -: pt refused to participate with PT yesterday -: counselled regarding working with PT and to mobilize so he can go home [place] -: -y from swing bed/rehab. -: is on coreg, procardia, hydralazine, imdur, asp and lipitor * . Review of Systems - Medications/Allergies Allergies/Adverse Reactions: Allergies Allergy/AdvReac Type Severity Reaction Status Date / Time No Known Drug Allergies Allergy Verified 12/09/18 00:42 Medications: Current Medications Acetaminophen (Tylenol) 650 mg PO Q4H PRN PRN Reason: Headache/Fever/Mild Pain (1-3) Last Admin: 12/13/18 20:28 Dose: 650 mg Acetaminophen (Tylenol) 650 mg [place] Q4H PRN PRN Reason: Headache/Fever/Mild Pain (1-3) Allopurinol (Zyloprim) 150 mg PO DAILY [facility] Last Admin: 12/14/18 10:09 Dose: Not Given Aspirin (Ecotrin) 81 mg PO DAILY [facility] Last Admin: 12/14/18 10:08 Dose: 81 mg Atorvastatin Calcium (Lipitor) 10 mg PO [facility] Last Admin: 12/13/18 20:24 Dose: 10 mg Carvedilol (Coreg) 25 mg PO BID [facility] Last Admin: 12/14/18 10:07 Dose: 25 mg Dextrose/Water (Dextrose 50%) 25 gm SLOW IVP PRN PRN PRN Reason: Hypoglycemia Epoetin Raghav (Procrit) 7,500 units SC Q7D [facility] Last Admin: 12/13/18 15:57 Dose: 7,500 units Ferrous Sulfate (Feosol) 325 mg PO QAM-[facility] Last Admin: 12/14/18 10:09 Dose: Not Given Fish Oil (Fish Oil) 1,000 mg PO BID [facility] Last Admin: 12/14/18 10:08 Dose: Not Given Glucagon (Glucagon) 1 mg IM PRN PRN PRN Reason: Hypoglycemia Hydralazine HCl (Apresoline) 10 mg SLOW IVP Q4H PRN PRN Reason: Severe Hypertension Last Admin: 12/12/18 12:47 Dose: 10 mg Hydralazine HCl (Apresoline) 75 mg PO TID [facility] Last Admin: 12/14/18 10:07 Dose: 75 mg Dextrose/Water (D5w) 1,000 mls @ 0 mls/hr IV .Q0M PRN PRN Reason: Hypoglycemia Insulin Human Lispro (Humalog) 0 units SC .MILD SLIDING SCALE PRN PRN Reason: Mild Correctional Scale Insulin Human Lispro (Humalog) 0 units SC .BEDTIME SLIDING SC PRN PRN Reason: Bedtime Correctional Scale Isosorbide Mononitrate (Imdur) 60 mg PO DAILY [facility] Last Admin: 12/14/18 10:07 Dose: 60 mg Labetalol HCl (Normodyne) 10 mg SLOW IVP Q4H PRN PRN Reason: SBP Greater Than 180 Nifedipine (Procardia Xl) 30 mg PO DAILY [facility] Last Admin: 12/14/18 10:06 Dose: 30 mg Ondansetron HCl (Zofran Odt) 4 mg PO Q6H PRN PRN Reason: Nausea/Vomiting Last Admin: 12/11/18 08:34 Dose: 4 mg Ondansetron HCl (Zofran) 4 mg IVP Q6H PRN PRN Reason: Nausea/Vomiting Pantoprazole Sodium (Protonix) 40 mg PO DAILY [facility] Last Admin: 12/14/18 10:07 Dose: 40 mg Polyethylene Glycol (Miralax) 17 gm PO DAILY [facility] Last Admin: 12/14/18 10:08 Dose: Not Given Senna/Docusate Sodium (Senokot S) 2 tab PO BID PRN PRN Reason: Constipation Sertraline HCl (Zoloft) 100 mg PO DAILY [facility] Last Admin: 12/14/18 10:07 Dose: 100 mg
[2018-12-14] MEDS: Atorvastatin Calcium 10 MG TAB PO SCH (20:06)
[2018-12-15] MEDS: cloNIDine 0.1 MG TAB PO PRN ×2 (04:41→20:28)
--- NOTE | 2018-12-15 09:05 | PRG ---
DATE OF SERVICE: 12/15/2018 SERVICE: Renal Medicine. SUBJECTIVE: Mr. Quinn is a 58-year-old black male with ESRD and on maintenance hemodialysis. He is currently dialyzing this morning. I am at the bedside supervising his dialysis. He feels tired today. He voices no other complaints. He denies any chest pain or shortness of breath. OBJECTIVE: VITAL SIGNS: Blood pressure is 190/87, heart rate 71, respiratory rate 16, temperature 97.4, and pulse ox 91%. GENERAL: Awake, alert, comfortable, not in overt distress. SKIN: Adequate turgor. HEENT: He has pinkish conjunctivae. Anicteric sclerae. NECK: No neck mass. No carotid bruits. No JVD. CHEST: No deformities. LUNGS: Clear breath sounds. HEART: Normal sinus rhythm. No murmur. No gallops. No rubs. ABDOMEN: Globular, soft, nontender. No masses. EXTREMITIES: No edema. No deformities. MEDICATIONS: Medications of December 15, 2018, was reviewed. LABORATORY DATA: Laboratories of December 13, 2018; white count 4.8, hemoglobin 10.9. On December 11, 2018; BUN 18, creatinine 3.26. ASSESSMENT AND PLAN: 1. End-stag renal disease. The patient requested to shorten his dialysis treatment. I will do a 3-hour hemodialysis today and then bring him back to 3-1/2 hours on Thursday, Thursday, and Thursday. Fluid removal only as tolerated. 2. Anemia, on weekly Epogen. 3. Hypertension - we will increase his hydralazine to 100 mg tablet t.i.d. Awaiting snf placement. Job ID: [id number]
[2018-12-15 09:09] LABS: #Eosinphils 0.3 thou/uL (0.0-0.7); #Lymphocytes 0.9 thou/uL (1.20-3.40); #Monocytes 0.6 thou/uL (0.11-0.59); #Neutrophils 2.4 thou/uL (1.40-6.50); %Basophils 0.5 % (0.0-1.0); %Eosinophils 6.4 % (0.0-10.0); %Monocytes 13.8 % (0.0-10.0); %Neutrophils 57.3 % (42.0-75.0); Hemoglobin 10.5 g/dL (14.0-18.0); Mean Corpuscular HGB CONC 31.2 g/dL (32.0-36.0); Mean Corpuscular Hemoglobin 25.7 pg (27.0-31.0); Mean Corpuscular Volume 82.2 fL (78.0-98.0); Mean Platelet Volume 9.9 fL (7.4-10.4); Platelet Count 231 thou/uL (130-400); RBC Distribution Width 21.2 % (11.5-14.5); White Blood Cell (WBC) Count 4.1 thou/uL (4.8-10.8)
[2018-12-15 09:22] LABS: Anion Gap 15 mmol/L (10-20); BUN (Urea Nitrogen) 23 mg/dL (8.4-25.7); Calc. Creatinine Clearance 20 mL/min (70-130); Calcium 9.1 mg/dL (7.8-10.44); Carbon Dioxide 25 mmol/L (22-29); Chloride 102 mmol/L (98-107); Estimated GFR-MDRD 18; Glucose 79 mg/dL (70-105); Potassium 4.8 mmol/L (3.5-5.1); Sodium 137 mmol/L (136-145)
--- NOTE | 2018-12-15 11:52 | PDOC.PN ---
- Subjective Encounter Start Date: 12/15/18 Encounter Start Time: 10:30 Subjective: getting HD, is awake, no sob or palp - Objective MAR Reviewed: Yes Vital Signs & Weight: Vital Signs (12 hours) Temp Pulse Resp BP BP Pulse Ox 12/15/18 08:00 91 L 12/15/18 07:50 97.4 F L 71 16 190/87 H 91 L 12/15/18 04:41 186/80 H 12/15/18 04:28 98.0 F 66 20 182/91 H 94 L 12/15/18 00:43 98.0 F 63 20 164/73 H 94 L Weight Weight 169 lb 3 oz Most Recent Monitor Data Heart Rate from ECG 57 NIBP 122/57 NIBP BP-Mean 78 Respiration from ECG 16 I&O: 12/14/18 12/15/18 12/16/18 06:59 06:59 06:59 Intake Total 720 1380 Balance 720 1380 Result Diagrams: 12/15/18 08:40 12/15/18 08:40 Additional Labs: Accuchecks 12/15/18 12/14/18 12/14/18 05:45 21:05 15:49 POC Glucose 87 109 95 12/14/18 11:10 POC Glucose 88 Phys Exam - Physical Examination HEENT: PERRLA, moist MMs Neck: no JVD, supple Respiratory: no wheezing, no rales Cardiovascular: RRR, no significant murmur Gastrointestinal: soft, non-tender, positive bowel sounds Musculoskeletal: no edema, pulses present Neurological: non-focal, moves all 4 limbs Psychiatric: normal affect, A&O x 3 Dx/Plan (1) Acute metabolic encephalopathy Code(s): G93.41 - METABOLIC ENCEPHALOPATHY Status: Resolved (2) Hypokalemia Code(s): E87.6 - HYPOKALEMIA Status: Resolved (3) Hyperlipidemia Code(s): E78.5 - HYPERLIPIDEMIA, UNSPECIFIED Status: Chronic Qualifiers: Hyperlipidemia type: unspecified Qualified Code(s): E78.5 - Hyperlipidemia , unspecified (4) Hypertensive emergency Code(s): I16.1 - HYPERTENSIVE EMERGENCY Status: Resolved Comment: Likely due to medical non-compliance and missing dialysis, now that meds restarted BP down to normal. (5) Anemia of renal disease Code(s): D63.1 - ANEMIA IN CHRONIC KIDNEY DISEASE Status: Chronic (6) Chronic hepatitis C Code(s): B18.2 - CHRONIC VIRAL HEPATITIS C Status: Chronic Qualifiers: Hepatic coma status: without hepatic coma Comment: stable (7) DM type 2 (diabetes mellitus, type 2) Status: Chronic Qualifiers: Diabetes mellitus fci insulin use: with fci use Diabetes mellitus complication status: with kidney complications Chronic kidney disease stage: on chronic dialysis Comment: holding insulin for now, bs well controlled (8) ESRD (end stage renal disease) on dialysis Code(s): N18.6 - END STAGE RENAL DISEASE; Z99.2 - DEPENDENCE ON RENAL DIALYSIS Status: Chronic Comment: dialysis per nephrology (9) Gout Code(s): M10.9 - GOUT, UNSPECIFIED Status: Chronic Qualifiers: Comment: stable (10) Hypertension Code(s): I10 - ESSENTIAL (PRIMARY) HYPERTENSION Status: Chronic Qualifiers: (11) Secondary hyperparathyroidism of renal origin Code(s): N25.81 - SECONDARY HYPERPARATHYROIDISM OF RENAL ORIGIN Status: Chronic (12) Physical deconditioning Code(s): R53.81 - OTHER MALAISE Status: Acute (13) Depression Code(s): F32.9 - MAJOR DEPRESSIVE DISORDER, SINGLE EPISODE, UNSPECIFIED Status : Acute Qualifiers: Depression Type: major depressive disorder Active/Remission status: currently active Major depression episode severity: mild - Plan hemostable -: may dc anytime if placement is ready -: continue coreg, procardia, hydralazine, imdur -: fish oil, asp, lipitor -: to amb as tolerated with PT * . Review of Systems - Medications/Allergies Allergies/Adverse Reactions: Allergies Allergy/AdvReac Type Severity Reaction Status Date / Time No Known Drug Allergies Allergy Verified 12/09/18 00:42 Medications: Current Medications Acetaminophen (Tylenol) 650 mg PO Q4H PRN PRN Reason: Headache/Fever/Mild Pain (1-3) Last Admin: 12/13/18 20:28 Dose: 650 mg Acetaminophen (Tylenol) 650 mg [place] Q4H PRN PRN Reason: Headache/Fever/Mild Pain (1-3) Allopurinol (Zyloprim) 150 mg PO DAILY [facility] Last Admin: 12/14/18 10:09 Dose: Not Given Aspirin (Ecotrin) 81 mg PO DAILY [facility] Last Admin: 12/14/18 10:08 Dose: 81 mg Atorvastatin Calcium (Lipitor) 10 mg PO HS [facility] Last Admin: 12/14/18 20:06 Dose: 10 mg Carvedilol (Coreg) 25 mg PO BID [facility] Last Admin: 12/14/18 20:06 Dose: 25 mg Clonidine (Catapres) 0.1 mg PO Q4H PRN PRN Reason: SBP>180 Last Admin: 12/15/18 04:41 Dose: 0.1 mg Dextrose/Water (Dextrose 50%) 25 gm SLOW IVP PRN PRN PRN Reason: Hypoglycemia Epoetin Raghav (Procrit) 7,500 units SC Q7D [facility] Last Admin: 12/13/18 15:57 Dose: 7,500 units Ferrous Sulfate (Feosol) 325 mg PO QA-[facility] Last Admin: 12/14/18 10:09 Dose: Not Given Fish Oil (Fish Oil) 1,000 mg PO BID [facility] Last Admin: 12/14/18 20:06 Dose: 1,000 mg Glucagon (Glucagon) 1 mg IM PRN PRN PRN Reason: Hypoglycemia Hydralazine HCl (Apresoline) 10 mg SLOW IVP Q4H PRN PRN Reason: Severe Hypertension Last Admin: 12/12/18 12:47 Dose: 10 mg Hydralazine HCl (Apresoline) 100 mg PO TID [facility] Dextrose/Water (D5w) 1,000 mls @ 0 mls/hr IV .Q0M PRN PRN Reason: Hypoglycemia Insulin Human Lispro (Humalog) 0 units SC .MILD SLIDING SCALE PRN PRN Reason: Mild Correctional Scale Insulin Human Lispro (Humalog) 0 units SC .BEDTIME SLIDING SC PRN PRN Reason: Bedtime Correctional Scale Isosorbide Mononitrate (Imdur) 60 mg PO DAILY [facility] Last Admin: 12/14/18 10:07 Dose: 60 mg Labetalol HCl (Normodyne) 10 mg SLOW IVP Q4H PRN PRN Reason: SBP Greater Than 180 Nifedipine (Procardia Xl) 30 mg PO DAILY [facility] Last Admin: 12/14/18 10:06 Dose: 30 mg Ondansetron HCl (Zofran Odt) 4 mg PO Q6H PRN PRN Reason: Nausea/Vomiting Last Admin: 12/11/18 08:34 Dose: 4 mg Ondansetron HCl (Zofran) 4 mg IVP Q6H PRN PRN Reason: Nausea/Vomiting Pantoprazole Sodium (Protonix) 40 mg PO DAILY [facility] Last Admin: 12/14/18 10:07 Dose: 40 mg Polyethylene Glycol (Miralax) 17 gm PO DAILY [facility] Last Admin: 12/14/18 10:08 Dose: Not Given Senna/Docusate Sodium (Senokot S) 2 tab PO BID PRN PRN Reason: Constipation Sertraline HCl (Zoloft) 100 mg PO DAILY [facility] Last Admin: 12/14/18 10:07 Dose: 100 mg
[2018-12-15] MEDS: Aspirin 81 mg Enteric Coated Tablet PO SCH (13:43)
[2018-12-15] MEDS: Ferrous Sulfate 325 MG TAB PO SCH (13:43)
[2018-12-15] MEDS: Allopurinol 100 MG TAB PO SCH (13:43)
[2018-12-15] MEDS: Carvedilol 25 MG TAB PO SCH ×2 (13:43→20:27)
[2018-12-15] MEDS: hydrALAZINE 25 MG TAB PO SCH ×3 (13:44→20:26)
[2018-12-15] MEDS: Fish Oil 1,000 MG CAP PO SCH ×2 (13:44→20:26)
[2018-12-15] MEDS: NIFEdipine XL 30 MG TAB PO SCH (13:45)
[2018-12-15] MEDS: Polyethylene Glycol 3350 17 GM Packet PO SCH (13:46)
[2018-12-15] MEDS: Atorvastatin Calcium 10 MG TAB PO SCH (20:27)
[2018-12-16] MEDS: Allopurinol 100 MG TAB PO SCH (08:45)
[2018-12-16] MEDS: Ferrous Sulfate 325 MG TAB PO SCH (08:46)
[2018-12-16] MEDS: Polyethylene Glycol 3350 17 GM Packet PO SCH ×2 (08:46→08:51)
[2018-12-16] MEDS: Aspirin 81 mg Enteric Coated Tablet PO SCH (08:47)
[2018-12-16] MEDS: Fish Oil 1,000 MG CAP PO SCH ×2 (08:47→19:59)
[2018-12-16] MEDS: NIFEdipine XL 30 MG TAB PO SCH (08:47)
[2018-12-16] MEDS: Carvedilol 25 MG TAB PO SCH ×2 (08:47→20:00)
[2018-12-16] MEDS: hydrALAZINE 25 MG TAB PO SCH ×3 (08:48→20:01)
--- NOTE | 2018-12-16 12:01 | PDOC.PN ---
- Subjective Encounter Start Date: 12/16/18 Encounter Start Time: 07:00 Subjective: awake, oriented well, no sob -: says he will participate with PT today - Objective MAR Reviewed: Yes Vital Signs & Weight: Vital Signs (12 hours) Temp Pulse Resp BP BP Pulse Ox 12/16/18 10:58 97.2 F L 55 L 18 183/69 H 95 12/16/18 08:48 65 176/84 H 12/16/18 08:47 65 176/84 H 12/16/18 08:05 97.8 F 65 16 176/84 H 96 12/16/18 08:00 96 12/16/18 04:16 97.3 F L 66 18 177/86 H 94 L 12/16/18 00:10 98.5 F 64 18 173/76 H 94 L Weight Weight 162 lb 4.163 oz Most Recent Monitor Data Heart Rate from ECG 57 NIBP 122/57 NIBP BP-Mean 78 Respiration from ECG 16 I&O: 12/15/18 12/16/18 12/17/18 06:59 06:59 06:59 Intake Total 1380 Balance 1380 Result Diagrams: 12/15/18 08:40 12/15/18 08:40 Additional Labs: Accuchecks 12/16/18 12/16/18 12/15/18 10:54 05:45 20:55 POC Glucose 133 H 77 99 12/15/18 12/15/18 12/15/18 16:41 12:43 12:18 POC Glucose 105 96 63 L Phys Exam - Physical Examination HEENT: PERRLA, moist MMs Neck: no JVD, supple Respiratory: no wheezing, no rales Cardiovascular: RRR, no significant murmur Gastrointestinal: soft, non-tender, positive bowel sounds Musculoskeletal: no edema, pulses present Neurological: non-focal, moves all 4 limbs Psychiatric: normal affect, A&O x 3 Dx/Plan (1) Acute metabolic encephalopathy Code(s): G93.41 - METABOLIC ENCEPHALOPATHY Status: Resolved (2) Hypokalemia Code(s): E87.6 - HYPOKALEMIA Status: Resolved (3) Hyperlipidemia Code(s): E78.5 - HYPERLIPIDEMIA, UNSPECIFIED Status: Chronic Qualifiers: Hyperlipidemia type: unspecified Qualified Code(s): E78.5 - Hyperlipidemia , unspecified (4) Hypertensive emergency Code(s): I16.1 - HYPERTENSIVE EMERGENCY Status: Resolved Comment: Likely due to medical non-compliance and missing dialysis, now that meds restarted BP down to normal. (5) Anemia of renal disease Code(s): D63.1 - ANEMIA IN CHRONIC KIDNEY DISEASE Status: Chronic (6) Chronic hepatitis C Code(s): B18.2 - CHRONIC VIRAL HEPATITIS C Status: Chronic Qualifiers: Hepatic coma status: without hepatic coma Comment: stable (7) DM type 2 (diabetes mellitus, type 2) Status: Chronic Qualifiers: Diabetes mellitus shelter insulin use: with superintendent [employer] use Diabetes mellitus complication status: with kidney complications Chronic kidney disease stage: on chronic dialysis Comment: holding insulin for now, bs well controlled (8) ESRD (end stage renal disease) on dialysis Code(s): N18.6 - END STAGE RENAL DISEASE; Z99.2 - DEPENDENCE ON RENAL DIALYSIS Status: Chronic Comment: dialysis per nephrology (9) Gout Code(s): M10.9 - GOUT, UNSPECIFIED Status: Chronic Qualifiers: Comment: stable (10) Hypertension Code(s): I10 - ESSENTIAL (PRIMARY) HYPERTENSION Status: Chronic Qualifiers: (11) Secondary hyperparathyroidism of renal origin Code(s): N25.81 - SECONDARY HYPERPARATHYROIDISM OF RENAL ORIGIN Status: Chronic (12) Physical deconditioning Code(s): R53.81 - OTHER MALAISE Status: Acute (13) Depression Code(s): F32.9 - MAJOR DEPRESSIVE DISORDER, SINGLE EPISODE, UNSPECIFIED Status : Acute Qualifiers: Depression Type: major depressive disorder Active/Remission status: currently active Major depression episode severity: mild - Plan hemostable -: needs to mobilize more with PT, has not amb so far -: continue asp, lipitor, coreg, hydralazine, imdur and zoloft -: awaiting placement, may dc if ready * . Review of Systems - Medications/Allergies Allergies/Adverse Reactions: Allergies Allergy/AdvReac Type Severity Reaction Status Date / Time No Known Drug Allergies Allergy Verified 12/09/18 00:42 Medications: Current Medications Acetaminophen (Tylenol) 650 mg PO Q4H PRN PRN Reason: Headache/Fever/Mild Pain (1-3) Last Admin: 12/13/18 20:28 Dose: 650 mg Acetaminophen (Tylenol) 650 mg [place] Q4H PRN PRN Reason: Headache/Fever/Mild Pain (1-3) Allopurinol (Zyloprim) 150 mg PO DAILY [facility] Last Admin: 12/16/18 08:45 Dose: 150 mg Aspirin (Ecotrin) 81 mg PO DAILY [facility] Last Admin: 12/16/18 08:47 Dose: 81 mg Atorvastatin Calcium (Lipitor) 10 mg PO HS [facility] Last Admin: 12/15/18 20:27 Dose: 10 mg Carvedilol (Coreg) 25 mg PO BID [facility] Last Admin: 12/16/18 08:47 Dose: 25 mg Clonidine (Catapres) 0.1 mg PO Q4H PRN PRN Reason: SBP>180 Last Admin: 12/15/18 20:28 Dose: 0.1 mg Dextrose/Water (Dextrose 50%) 25 gm SLOW IVP PRN PRN PRN Reason: Hypoglycemia Epoetin Raghav (Procrit) 7,500 units SC Q7D [facility] Last Admin: 12/13/18 15:57 Dose: 7,500 units Ferrous Sulfate (Feosol) 325 mg PO QAM[facility] Last Admin: 12/16/18 08:46 Dose: 325 mg Fish Oil (Fish Oil) 1,000 mg PO BID [facility] Last Admin: 12/16/18 08:47 Dose: 1,000 mg Glucagon (Glucagon) 1 mg IM PRN PRN PRN Reason: Hypoglycemia Hydralazine HCl (Apresoline) 10 mg SLOW IVP Q4H PRN PRN Reason: Severe Hypertension Last Admin: 12/12/18 12:47 Dose: 10 mg Hydralazine HCl (Apresoline) 100 mg PO TID [facility] Last Admin: 12/16/18 08:48 Dose: 100 mg Dextrose/Water (D5w) 1,000 mls @ 0 mls/hr IV .Q0M PRN PRN Reason: Hypoglycemia Insulin Human Lispro (Humalog) 0 units SC .MILD SLIDING SCALE PRN PRN Reason: Mild Correctional Scale Insulin Human Lispro (Humalog) 0 units SC .BEDTIME SLIDING SC PRN PRN Reason: Bedtime Correctional Scale Isosorbide Mononitrate (Imdur) 60 mg PO DAILY [facility] Last Admin: 12/16/18 08:46 Dose: 60 mg Labetalol HCl (Normodyne) 10 mg SLOW IVP Q4H PRN PRN Reason: SBP Greater Than 180 Nifedipine (Procardia Xl) 30 mg PO DAILY [facility] Last Admin: 12/16/18 08:47 Dose: 30 mg Ondansetron HCl (Zofran Odt) 4 mg PO Q6H PRN PRN Reason: Nausea/Vomiting Last Admin: 12/11/18 08:34 Dose: 4 mg Ondansetron HCl (Zofran) 4 mg IVP Q6H PRN PRN Reason: Nausea/Vomiting Pantoprazole Sodium (Protonix) 40 mg PO DAILY [facility] Last Admin: 12/16/18 08:46 Dose: 40 mg Polyethylene Glycol (Miralax) 17 gm PO DAILY [facility] Last Admin: 12/16/18 08:51 Dose: Not Given Senna/Docusate Sodium (Senokot S) 2 tab PO BID PRN PRN Reason: Constipation Sertraline HCl (Zoloft) 100 mg PO DAILY [facility] Last Admin: 12/16/18 08:45 Dose: 100 mg
[2018-12-16 15:13] VITALS: BMI 23.9
[2018-12-16] MEDS: Atorvastatin Calcium 10 MG TAB PO SCH (19:59)
[2018-12-17] MEDS: Ferrous Sulfate 325 MG TAB PO SCH (08:07)
[2018-12-17] MEDS: Allopurinol 100 MG TAB PO SCH ×2 (08:42→12:41)
[2018-12-17] MEDS: Aspirin 81 mg Enteric Coated Tablet PO SCH ×2 (08:42→12:42)
[2018-12-17] MEDS: hydrALAZINE 25 MG TAB PO SCH (08:42)
[2018-12-17] MEDS: NIFEdipine XL 30 MG TAB PO SCH ×2 (08:42→12:42)
[2018-12-17] MEDS: Carvedilol 25 MG TAB PO SCH (08:42)
[2018-12-17] MEDS: Fish Oil 1,000 MG CAP PO SCH (08:42)
[2018-12-17] MEDS: Polyethylene Glycol 3350 17 GM Packet PO SCH (08:43)
--- NOTE | 2018-12-17 11:05 | PRG ---
DATE OF SERVICE: 12/17/2018 SUBJECTIVE: A 58-year-old male with multiple comorbidities including end-stage renal disease, on maintenance hemodialysis, who was admitted after he was found down and he is now confused. Mental status has improved to baseline with supportive care and hemodialysis. The patient has no new complaints. OBJECTIVE: VITAL SIGNS: Blood pressure 156/65, pulse 60, respiratory rate 18, SpO2 of 92% on room air, and temperature 97.3. GENERAL: Elderly male in no obvious distress. Afebrile, anicteric, acyanotic. HEENT: Normocephalic and atraumatic. CHEST: Good air entry bilaterally with no obvious crackles. CARDIAC: Regular rhythm and rate with normal heart sounds. ABDOMEN: Full, soft, nontender, and nondistended with normal bowel sounds. EXTREMITIES: Grossly normal with no deformity or edema. NEUROLOGIC: Conscious and alert conversation. Cranial nerves II through XII are grossly intact. The patient moves all extremities, but weakly. DIAGNOSTIC DATA: BMP of December 15 showed sodium of 137, potassium of 4.8, CO2 of 25, and creatinine of 4.16. ASSESSMENT AND PLAN: 1. End-stage renal disease, on maintenance hemodialysis Thursday, Thursday, and Thursday. The patient has been tolerating hemodialysis with fluid removal as tolerated. He was seen on dialysis unit and dialysis permits the treatment. Next dialysis will be on Thursday, but he can be discharged to his nursing facility to resume outpatient dialysis regimen. 2. Accelerated hypertension: Present on admission. This most likely is related to medication noncompliance due to mental status change as well as fluid overload. This has improved to acceptable numbers. We will continue on current antihypertensives. 3. Acute encephalopathy: May be related to uremic syndrome. Arrhythmia cannot be ruled out as well. DISPOSITION: The patient can be discharged from nephrology point of view. He is to resume outpatient dialysis regimen, Thursday, Thursday, and Thursday. Job ID: [id number]
[2018-12-17 12:43] VITALS: BP 165/66
[2018-12-17 13:37] VITALS: TEMP 97.5
--- NOTE | 2018-12-17 14:01 | DIS ---
DATE OF ADMISSION: 12/08/2018 DATE OF DISCHARGE: 12/17/2018 PRIMARY CARE PROVIDER: [facility]. DISCHARGE DIAGNOSES: 1. Acute metabolic encephalopathy. 2. Hypertensive emergency. 3. Hypokalemia. 4. Mild depression, suspected. CONDITION OF PATIENT ON THE DAY OF DISCHARGE: Stable. I assessed Mr. Quinn on the day of discharge. He denies any chest pain or shortness of breath. Vital signs are stable. S1 and S2 are heard, regular. Lungs are clear to auscultation bilaterally. DISCHARGE MEDICATIONS: 1. Aspirin 81 mg daily. 2. Esomeprazole 40 mg daily. 3. Lantus insulin 80 units subcutaneously every morning. 4. [place]-3 fatty acids 1000 mg daily. 5. Allopurinol 150 mg daily. 6. Lipitor 10 mg at bedtime. 7. Coreg 25 mg 2 times a day. 8. Ferrous sulfate 325 mg daily. 9. Hydralazine 100 mg 3 times a day. 10. Isosorbide mononitrate 60 mg daily. 11. Procardia XL 30 mg daily. 12. MiraLAX 17 g daily. 13. Zoloft 100 mg daily. 14. Procrit 7500 units every week. HOSPITAL COURSE: Mr. Quinn is a pleasant 58-year-old gentleman, who was admitted to [facility] on December 08, 2018, for acute metabolic encephalopathy, likely secondary to uremia. He was found down on the floor in his bathroom by his director life sciences. Please refer to Dr. Willis's history and physical note dated December 08, 2018, for further details. He was seen by Nephrology Service. He underwent maintenance hemodialysis. He slowly started improving. At the time of admission, he was also in hypertensive emergency. This improved with adjustment of his blood pressure medications. After further discussions, the patient agreed to go to shelter facility till he was able to manage at home. He was also started on antidepressants for suspected mild depression. He is being discharged to [facility] for further management. Many thanks for allowing me to participate in your patient's care. Please feel free to contact me with any questions or concerns. DISCHARGE DESTINATION: [facility]. TOTAL AMOUNT OF TIME SPENT COORDINATING THIS DISCHARGE: 33 minutes. Job ID: [id number]
== END 2018-12-17 14:30 | DRG 291 ==
LOC: ERS 13:26 → IMCU/EMU 18:24 → SURG B 12-09 14:09
PROVIDERS: ADMIT Internal Medicine; ATTEND Internal Medicine
PROC: 5A1D70Z Performance of Urinary Filtration, Intermittent, Less than 6 Hours Per Day (ICD-10-PCS; principal; 2018-12-17)
DX: I13.2 Hypertensive heart and chronic kidney disease with heart failure and with stage 5 chronic kidney disease, or end stage renal disease (principal); N18.6 End stage renal disease; G93.41 Metabolic encephalopathy; I50.32 Chronic diastolic (congestive) heart failure; I16.1 Hypertensive emergency; N25.81 Secondary hyperparathyroidism of renal origin; E11.22 Type 2 diabetes mellitus with diabetic chronic kidney disease; Z99.2 Dependence on renal dialysis; E78.5 Hyperlipidemia, unspecified; B18.2 Chronic viral hepatitis C; M10.9 Gout, unspecified; F32.9 Major depressive disorder, single episode, unspecified; E87.5 Hyperkalemia; E87.6 Hypokalemia; D63.1 Anemia in chronic kidney disease; R53.81 Other malaise
CPT/HCPCS: 36415; 36416; 70450; 71045; 80048; 80053; 82550; 85025; 86140; 87040; 87340; 90935; 93005; 96360; G0257; J0360; Q0162; Q4081